=== PATIENT | female | born 1985 | race Caucasian/White ===

== ENCOUNTER 2016-09-02 14:28 | Inpatient (IN) ==
[2016-09-02 15:26] LABS: Bilirubin,Urine Small (Negative); Blood,Urine Negative (Negative); Clarity,Urine Cloudy (Clear); Color,Urine Dark Yellow (Yellow); Glucose,Urine (UA) Normal (Normal); Ketones,Urine Trace mg/dL (Negative); Leukocyte Esterase,Urine Negative (Negative); Nitrite,Urine Negative (Negative); Protein,Urine 30 mg/dL (Neg-Trace); Specific Gravity,Urine 1.029 (1.010-1.025); Urobilinogen,Urine Normal (Normal)
[2016-09-02 15:29] LABS: Basophils % 0.2 %; Eosinophils # 0.4 K/mcL (0.0-0.6); Hematocrit 44.5 % (35.3-44.9); Hemoglobin 14.8 g/dL (11.5-15.4); Immature Granulocytes % 0.2 % (0-4); Lymphocytes # 3.1 K/mcL (0.6-4.6); Mean Corpuscular HGB Conc 33.3 g/dL (31.6-35.5); Mean Corpuscular Hemoglobin 29.9 pg (28.0-33.3); Mean Corpuscular Volume 89.9 fL (83.0-100.0); Mean Platelet Volume 10.4 fL (9.4-12.4); Monocytes # 0.4 K/mcL (0.0-1.3); Monocytes % 4.6 %; Neutrophils # 5.1 K/mcL (1.6-8.9); Platelet Count 169 K/mcL (140-400); Red Blood Count 4.95 M/mcL (3.82-4.97); Red Cell Distribution Width 13.1 % (11.5-14.5)
[2016-09-02 15:30] LABS: Amphetamine Screen,Urine Negative ng/mL (Cutoff=1000); Barbiturate Screen,Urine Positive ng/mL (Cutoff=200); Benzodiazepines Screen,Urine Positive ng/mL (Cutoff=200); Cannabinoid Screen,Urine Negative ng/mL (Cutoff = 50); Cocaine Screen,Urine Negative ng/mL (Cutoff= 300); Opiate Screen,Urine Positive ng/mL (Cutoff=300); Phencyclidine Screen,Urine Negative ng/mL (Cutoff=25)
--- NOTE | 2016-09-02 15:33 | Emergency Department Note ---
Overdose - Lab Data Result diagrams: 09/02/16 15:20 09/02/16 15:20 Lab Results 09/02/16 09/02/16 09/02/16 Range/Units 15:14 15:14 15:14 WBC (4.3-11.1) K/mcL RBC (3.82-4.97) M/mcL Hgb (11.5-15.4) g/dL Hct (35.3-44.9) % MCV (83.0-100.0) fL MCH (28.0-33.3) pg MCHC (31.6-35.5) g/dL RDW (11.5-14.5) % Plt Count (140-400) K/mcL MPV (9.4-12.4) fL Immature Gran % (0-4) % Seg Neutrophils % % Lymphocytes % % Monocytes % % Eosinophils % % Basophils % % Neutrophils # (1.6-8.9) K/mcL Lymphocytes # (0.6-4.6) K/mcL Monocytes # (0.0-1.3) K/mcL Eosinophils # (0.0-0.6) K/mcL Basophils # (0.0-0.2) K/mcL Sodium (136-145) mEq/L Potassium (3.5-4.5) mEq/L Chloride (98-109) mEq/L Carbon Dioxide (19-29) mEq/L BUN (7-20) mg/dL Creatinine (0.57-1.11) mg/dL Est GFR ( Amer) (> 60) Est GFR (Non-Af Amer) (> 60) BUN/Creatinine Ratio (6-26) Glucose (70-99) mg/dL Calculated Osmolality (280-300) Lactic Acid (0.5-2.2) mmol/L Calcium (8.6-10.8) mg/dL Total Bilirubin (0.2-1.2) mg/dL Direct Bilirubin (0.0-0.5) mg/dL Indirect Bilirubin (0.0-1.2) mg/dL AST (5-34) Units/L ALT (0-55) Units/L Alkaline Phosphatase (38-126) Units/L Serum Total Protein (6.0-8.3) g/dL Albumin (3.5-5.0) g/dL Globulin (2.4-3.5) g/dL Albumin/Globulin Ratio (1.1-2.2) Urine Color Dark Yellow (Yellow) Urine Clarity Cloudy A (Clear) Urine pH 6.0 (5.0-8.0) pH Units Ur Specific [place] 1.029 H (1.010-1.025) Urine Protein 30 H (Neg-Trace) mg/dL Urine Glucose (UA) Normal (Normal) mg/dL Urine Ketones Trace H (Negative) mg/dL Urine Blood Negative (Negative) Urine Nitrite Negative (Negative) Urine Bilirubin Small H (Negative) Urine Urobilinogen Normal (Normal) mg/dL Ur Leukocyte Esterase Negative (Negative) Urine Microscopic RBC 0-3 (0-3) per hpf Urine Microscopic WBC 0-3 (0-3) per hpf Ur Squamous Epith Cells Few (None-Few) per lpf Urine Bacteria Few (None-Few) per hpf Urine Test Negative (Negative) Salicylates (15-30) mg/dL Urine Opiates Screen Positive H (Xjrwyr=517) ng/mL Acetaminophen (10-30) mcg/mL Ur Barbiturates Screen Positive H (Hniryy=037) ng/mL Ur Phencyclidine Scrn Negative (Cutoff=25) ng/mL Ur Amphetamines Screen Negative (Ivqdev=6756) ng/mL U Benzodiazepines Scrn Positive H (Aoqioe=944) ng/mL Urine Cocaine Screen Negative (Cutoff= 300) ng/mL U Marijuana (THC) Screen Negative (Cutoff = 50) ng/mL Ethyl Alcohol (0-10) mg/dL 09/02/16 09/02/16 09/02/16 Range/Units 15:20 15:20 15:20 WBC 9.0 (4.3-11.1) K/mcL RBC 4.95 (3.82-4.97) M/mcL Hgb 14.8 (11.5-15.4) g/dL Hct 44.5 (35.3-44.9) % MCV 89.9 (83.0-100.0) fL MCH 29.9 (28.0-33.3) pg MCHC 33.3 (31.6-35.5) g/dL RDW 13.1 (11.5-14.5) % Plt Count 169 (140-400) K/mcL MPV 10.4 (9.4-12.4) fL Immature Gran % 0.2 (0-4) % Seg Neutrophils % 57.0 % Lymphocytes % 34.0 % Monocytes % 4.6 % Eosinophils % 4.0 % Basophils % 0.2 % Neutrophils # 5.1 (1.6-8.9) K/mcL Lymphocytes # 3.1 (0.6-4.6) K/mcL Monocytes # 0.4 (0.0-1.3) K/mcL Eosinophils # 0.4 (0.0-0.6) K/mcL Basophils # 0.0 (0.0-0.2) K/mcL Sodium 142 (136-145) mEq/L Potassium 3.7 (3.5-4.5) mEq/L Chloride 108 (98-109) mEq/L Carbon Dioxide 29 (19-29) mEq/L BUN 10 (7-20) mg/dL Creatinine 0.94 (0.57-1.11) mg/dL Est GFR ( Amer) > 60 (> 60) Est GFR (Non-Af Amer) > 60 (> 60) BUN/Creatinine Ratio 11 (6-26) Glucose 140 H (70-99) mg/dL Calculated Osmolality 295 (280-300) Lactic Acid 1.0 (0.5-2.2) mmol/L Calcium 9.3 (8.6-10.8) mg/dL Total Bilirubin 0.4 (0.2-1.2) mg/dL Direct Bilirubin 0.2 (0.0-0.5) mg/dL Indirect Bilirubin 0.2 (0.0-1.2) mg/dL AST 14 (5-34) Units/L ALT 25 (0-55) Units/L Alkaline Phosphatase 126 (38-126) Units/L Serum Total Protein 6.6 (6.0-8.3) g/dL Albumin 3.4 L (3.5-5.0) g/dL Globulin 3.2 (2.4-3.5) g/dL Albumin/Globulin Ratio 1.1 (1.1-2.2) Urine Color (Yellow) Urine Clarity (Clear) Urine pH (5.0-8.0) pH Units Ur Specific [place] (1.010-1.025) Urine Protein (Neg-Trace) mg/dL Urine Glucose (UA) (Normal) mg/dL Urine Ketones (Negative) mg/dL Urine Blood (Negative) Urine Nitrite (Negative) Urine Bilirubin (Negative) Urine Urobilinogen (Normal) mg/dL Ur Leukocyte Esterase (Negative) Urine Microscopic RBC (0-3) per hpf Urine Microscopic WBC (0-3) per hpf Ur Squamous Epith Cells (None-Few) per lpf Urine Bacteria (None-Few) per hpf Urine Test (Negative) Salicylates < 5.0 L (15-30) mg/dL Urine Opiates Screen (Hrpppo=911) ng/mL Acetaminophen 6.0 L (10-30) mcg/mL Ur Barbiturates Screen (Ymybeh=458) ng/mL Ur Phencyclidine Scrn (Cutoff=25) ng/mL Ur Amphetamines Screen (Xonuhv=6491) ng/mL U Benzodiazepines Scrn (Ajvehn=270) ng/mL Urine Cocaine Screen (Cutoff= 300) ng/mL U Marijuana (THC) Screen (Cutoff = 50) ng/mL Ethyl Alcohol < 10 (0-10) mg/dL - EKG Data EKG results narrative: EKG shows a sinus rhythm with a rate of 78 bpm. There is no ST elevation or depression. Isolated T-wave inversion in lead 3 which is unchanged from previous. Normal axis. Normal progression. QT interval 409 ms. Overdose HPI - General Chief Complaint: ED Overdose Stated Complaint: SI OD attempt Time Seen by Provider: 09/02/16 14:47 Source: patient Nursing Notes Reviewed: Yes Vital Signs Reviewed: Yes - History of Present Illness HPI Narrative: 35-year-old female with a history of depression, anxiety and PTSD presents to the emergency department after a reported overdose. She informs me that today around noon she took 10 tablets of 5 mg Valium that were prescribed to her. She took those because "I just wanted to go to sleep." She denies any suicidal ideation or homicidal ideation. She reports an ingestion in the past that was intentional and required her to spend time in the hospital and see our psychiatrist. She states she deals with anxiety and depression and has been very stressed out lately. She smoked marijuana for the first time a few days ago to try to help her nerves. She denies any other drug use or alcohol use. She denies any abdominal pain but complains of some nausea and states she had a vomiting episode. She states she feels tired but denies any headache, numbness or weakness in her extremities. - Related Data Home Medications Medication Instructions Recorded Confirmed Atorvastatin 40 mg PO HS 09/05/15 10/14/15 Prazosin HCl [Minipress] 4 mg PO HS 09/06/15 10/14/15 Ropinirole [Requip] 0.25 mg PO HS 09/06/15 10/14/15 Aripiprazole [Abilify Maintena] 12/06/15 Benztropine Mesylate [Benztropine 12/06/15 Mesylate] Butalb/Acetaminophen/Caffeine 12/06/15 [Fioricet 50-300-40 mg Capsule] Docusate [Colace] 12/06/15 Ferrous Sulfate [Iron] 12/06/15 Lamictal 12/06/15 12/06/15 Previous Rx's Medication Instructions Recorded Diazepam [Valium] 5 mg PO BID PRN #60 tablet 10/04/15 Gabapentin [Neurontin] 600 mg PO BID #120 capsule 10/04/15 RisperiDONE [RisperDAL] 1 mg PO HS #30 tablet 10/04/15 Dicyclomine [Bentyl] 20 mg PO QID #20 capsule 12/14/15 Ondansetron [Zofran] 8 mg PO Q8HR #20 tablet 12/14/15 Ciprofloxacin HCl [Cipro] 500 mg PO BID #20 tablet 02/14/16 Hydrocodone/Acetaminophen [[place] 1 each PO Q6HR PRN #12 tablet 02/14/16 5-325 Tablet] Ondansetron ODT [Zofran ODT] 4 mg PO Q6HR #10 tab.rapdis 02/14/16 SUMAtriptan Succinate [Imitrex] 100 mg PO 1-2XD PRN #9 tablet 03/29/16 TraMADol [Ultram] 50 mg PO Q6HR #20 tablet 04/14/16 Amoxicillin 875 mg PO BID #42 tablet 04/21/16 Ondansetron ODT [Zofran ODT] 4 mg SL Q8HR PRN #20 tab.rapdis 07/28/16 Allergies Allergy/AdvReac Type Severity Reaction Status Date / Time chlorhexidine Allergy See Verified 09/02/16 14:36 Comments lurasidone [From Latuda] Allergy Swelling Verified 09/02/16 14:36 of Lip/Tongue/Throat orange (food color) AdvReac Hives Verified 09/02/16 14:36 All systems ED: reviewed and negative except as stated. Cardiovascular: Denies: chest pain Respiratory: Denies: cough, dyspnea Gastrointestinal: Reports: nausea, vomiting. 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 S1, S2. No murmurs, rubs or gallops. Respiratory: Breath sounds clear bilaterally. No wheezing, rales or rhonchi. No resp distress Abdomen: Soft, nontender. No guarding, rebound or rigidity. Normal bowel sounds throughout. No palpable organomegaly Eyes: Conjunctiva clear, no scleral icterus HENT: Normocephalic, no signs of head injury. No oral mucosal lesions. Moist mucous membranes Neuro: Alert and oriented 3, moving all extremities appropriately Musculoskeletal: No joint tenderness or swelling Skin: No signs of self-harm or IV drug abuse Psych: Appropriate - General General appearance: alert, in no apparent distress Course Course Narrative: Presented after an overdose on 50 mg of Valium. Obviously, this is concerning for suicide attempt and patient was evaluated by our psychiatry team who recommended admission. Her labs were unremarkable. Alcohol was not onboard. She is positive for opiates, barbiturates and opiates. She does take Fioricet according to her history which may explain the barbiturates. Her EKG showed no QT prolongation or any other abnormalities. She remained awake, alert, protecting her airway and stable in the emergency department and we feel patient is stable to be admitted to psychiatry seen. Vital Signs Temperature 98.4 F 09/02/16 14:33 Pulse Rate 80 09/02/16 14:33 Respiratory Rate 16 09/02/16 14:33 Blood Pressure 132/84 09/02/16 14:33 O2 Sat by Pulse Oximetry 96 09/02/16 14:33 Temperature 98.4 F 09/02/16 14:33 Pulse Rate 71 09/02/16 15:00 Respiratory Rate 16 09/02/16 15:00 Blood Pressure 140/74 09/02/16 15:00 O2 Sat by Pulse Oximetry 97 09/02/16 15:00 Oxygen Delivery Oxygen Delivery Room Air Disposition Clinical Impression: Overdose Qualifiers: Encounter type: initial encounter Injury intent: intentional self-harm Qualified Code(s): T50.902A - Poisoning by unspecified drugs, medicaments and biological substances, intentional self-harm, initial encounter Disposition: Admitted As Inpatient Attestation Statement - Attestation Attestation: I examined this patient and my medical decision-making was reviewed with the AERODYNAMICIST/PA/Advanced Practice Nurse/Resident Physician. I agree with the documented findings, disposition and treatment plan as described except to the extent set forth below. Patient emergency department with a chief complaint of overdose. Patient states she intentionally took 10 5 mg Valium tablets about 2 hours ago. On exam she is awake alert no distress. Obese. Lungs clear heart regular. Plan. Patient medically cleared. She has been observed for 2 hours. She is awake alert and appropriate. She is evaluated by one a staff who feel she is appropriate for admission. [place] slip reviewed. Patient admitted to psych.
[2016-09-02 15:38] LABS: Bacteria,Urine Few per hpf (None-Few); RBC,Urine 0-3 per hpf (0-3); Squamous Epithelial Cell,Urine Few per lpf (None-Few); WBC,Urine 0-3 per hpf (0-3)
[2016-09-02 15:42] LABS: Alanine Aminotransferase 25 Units/L (0-55); Albumin 3.4 g/dL (3.5-5.0); Albumin/Globulin Ratio 1.1 (1.1-2.2); Alkaline Phosphatase 126 Units/L (38-126); Aspartate Amino Transferase 14 Units/L (5-34); BUN/Creatinine Ratio 11 (6-26); Bilirubin,Direct 0.2 mg/dL (0.0-0.5); Bilirubin,Indirect 0.2 mg/dL (0.0-1.2); Bilirubin,Total 0.4 mg/dL (0.2-1.2); Blood Urea Nitrogen 10 mg/dL (7-20); Calcium 9.3 mg/dL (8.6-10.8); Carbon Dioxide 29 mEq/L (19-29); Chloride 108 mEq/L (98-109); Globulin 3.2 g/dL (2.4-3.5); Glucose 140 mg/dL (70-99); Osmolality,Calculated 295 (280-300); Potassium 3.7 mEq/L (3.5-4.5); Sodium 142 mEq/L (136-145); Total Protein 6.6 g/dL (6.0-8.3); eGFR For African Americans > 60 (> 60); eGFR For Non-African Americans > 60 (> 60)
[2016-09-02 15:43] LABS: Ethanol < 10 mg/dL (0-10); Salicylate < 5.0 mg/dL (15-30)
[2016-09-02] MEDS ORDERED: Ondansetron ODT 4 MG TAB.RAPDIS SL ONE (15:50)
[2016-09-02] MEDS ORDERED: Acetaminophen/Butalbital/CaffeineTABLET PO PRN (17:41)
[2016-09-02] MEDS ORDERED: *HR* LORazepam 1 MG TABLET PO PRN (17:48)
[2016-09-02] MEDS ORDERED: Haloperidol Lactate 5 MG/ML VIAL IM PRN (17:48)
[2016-09-02] MEDS ORDERED: Ibuprofen 400 MG TABLET PO PRN (17:48)
[2016-09-02] MEDS ORDERED: *HR* LORazepam 2 MG/ML VIAL IM PRN (17:48)
[2016-09-02] MEDS ORDERED: MOM Conc 10 ML UD.LIQ PO PRN (18:29)
[2016-09-02] MEDS ORDERED: Mag Hydrox/Al Hydrox/Simeth 30 ML UDC PO PRN (18:29)
[2016-09-02] MEDS ORDERED: lamoTRIgine 100 MG TABLET PO SCH (21:00)
[2016-09-02] MEDS: Gabapentin 300 MG CAPSULE PO SCH (21:32)
[2016-09-02] MEDS: Nicotine 14 MG PATCH.TD24 TD SCH (21:32)
[2016-09-03] MEDS: Nicotine 14 MG PATCH.TD24 TD SCH (09:23)
[2016-09-03] MEDS: Gabapentin 300 MG CAPSULE PO SCH ×2 (09:24→20:53)
[2016-09-03] MEDS: Multivit/Ca/Min/Fe/FA 1 TAB TABLET PO SCH (09:24)
[2016-09-03] MEDS: lamoTRIgine 100 MG TABLET PO SCH (11:07)
[2016-09-03] MEDS: ARIPiprazole 5 MG TABLET PO SCH (11:07)
--- NOTE | 2016-09-03 11:38 | Psychiatry History & Physical ---
Date of Encounter: 09/03/16 Time of Encounter: 10:00 History of Present Illness Patient Stated Chief Complaint: "I just can't live this way." Medicare Admission Attestation: For traditional Medicare patients the provided hospital inpatient services are reasonable and necessary and in the case of services not specified as inpatient -only under 42 CFR 419.22 (n), that they are appropriately provided as inpatient services in accordance 42 CFR 412.3. For Critical Access Hospital the patient may reasonably be expected to be discharged or transferred to a hospital within 96 hours after admission to the Critical Access Hospital. Admitted From: Emergency Dept Plans for Post Hospital Care: Home History of Present Illness: Ms. Kendall is a 31 year old female with a history of multiple psychiatric issues who presents to the hospital with increasing depression and after a recent drug overdose. Patient admits that she was going to try to kill herself with overdosing on Valium tablets. Patient states that she has a plan for about a week before she acted on it. She reports increasing depression and feelings of hopelessness over the past few weeks. She admits that she has been off several of her medications including her Abilify sustained release for several months because she has no provider to prescribe it. She states that she got into argument with her fiance recently and that has increased her stress level and made her feel more depressed. She reports racing thoughts and anxiety with occasionally difficulty sleeping. She sometimes has trouble "shutting down my brain." She denies auditory or visual hallucinations. She denies obsessions, delusions, paranoia. The patient continues to feel hopeless about her life. She has passive wish to follow sleep and not wake up. She currently lives with her 2 children. Patient states that her mom is emotionally supportive. Patient denies illicit drug use other than marijuana. She currently does not work. Patient has a appointment for a new psychiatric provider but will not see this person until October. She does feel that her psych meds were helping at one point, but they do not help her any longer. She has been on 150 mg Lamictal for about 6 months. Past Med Surg Social Fam HX - Past Medical History Medical history: migraine - Past Psychiatric History Psychiatric history: Reports: prior suicide attempt Past psychiatric history details: Patient has a history of a previous suicide attempt about a year ago. She reports a myriad of psychiatric disorders. Family psychiatric history: Yes Family Psychiatric History Details: Patient reports that her son has bipolar disorder. Family History of Suicide: None - Past Surgical History Surgical History: appendectomy, hysterectomy - Social History Smoking Status: Current every day smoker Smokeless Tobacco Status: No Alcohol use: none Drug use: none Occupational status: unemployed Current living situation: With Family - Family History Father Living Status: Hx Family Cardiac Disorders: Yes Hx Family Endocrine Disorder: Yes Medications & Allergies Atorvastatin 40 mg PO HS 09/05/15 [History] Prazosin HCl [Minipress] 4 mg PO HS 09/06/15 [History] Ropinirole [Requip] 0.25 mg PO HS 09/06/15 [History] Diazepam [Valium] 5 mg PO BID PRN #60 tablet 10/04/15 [Rx] Gabapentin [Neurontin] 600 mg PO BID #120 capsule 10/04/15 [Rx] RisperiDONE [RisperDAL] 1 mg PO HS #30 tablet 10/04/15 [Rx] Aripiprazole [Abilify Maintena] 12/06/15 [History] Benztropine Mesylate [Benztropine Mesylate] 12/06/15 [History] Butalb/Acetaminophen/Caffeine [Fioricet 50-300-40 mg Capsule] 12/06/15 [History ] Docusate [Colace] 12/06/15 [History] Ferrous Sulfate [Iron] 12/06/15 [History] Lamictal 12/06/15 [History] Dicyclomine [Bentyl] 20 mg PO QID #20 capsule 12/14/15 [Rx] Ondansetron [Zofran] 8 mg PO Q8HR #20 tablet 12/14/15 [Rx] Ciprofloxacin HCl [Cipro] 500 mg PO BID #20 tablet 02/14/16 [Rx] Hydrocodone/Acetaminophen [[place] 5-325 Tablet] 1 each PO Q6HR PRN #12 tablet [Rx] Ondansetron ODT [Zofran ODT] 4 mg PO Q6HR #10 tab.rapdis 02/14/16 [Rx] SUMAtriptan Succinate [Imitrex] 100 mg PO 1-2XD PRN #9 tablet 03/29/16 [Rx] TraMADol [Ultram] 50 mg PO Q6HR #20 tablet 04/14/16 [Rx] Amoxicillin 875 mg PO BID #42 tablet 04/21/16 [Rx] Ondansetron ODT [Zofran ODT] 4 mg SL Q8HR PRN #20 tab.rapdis 07/28/16 [Rx] Allergies chlorhexidine Allergy (Verified 09/02/16 14:36) See Comments swelling and blisters lurasidone [From Latuda] Allergy (Verified 09/02/16 14:36) Swelling of Lip/Tongue/Throat orange (food color) Adverse Reaction (Verified 09/02/16 14:36) Hives Review of Systems Constitutional: Denies: fever, chills, weakness, weight change Eyes: Denies: eye pain, vision change Ears, Nose, Throat: Denies: ear pain, throat pain, dental pain, hearing loss, congestion Cardiovascular: Denies: chest pain, palpitations, dyspnea on exertion Respiratory: Denies: cough, dyspnea, wheezes Gastrointestinal: Denies: abdominal pain, nausea, vomiting, diarrhea, constipation Genitourinary male: Denies: urgency, dysuria, frequency, genital lesions Genitourinary female: Denies: urgency, dysuria, frequency, abnormal menses, dyspareunia Musculoskeletal: Denies: joint swelling, joint pain Integumentary: Denies: rash, lesions, pruritus Neurological: Denies: headache, weakness, numbness, memory loss Psychiatric: Reports: depression, anxiety, abnormal sleep pattern, suicidal ideation, hopelessness, irritability, mood swings, panic attacks. Denies: auditory hallucinations, visual hallucinations Endocrine: Denies: fatigue, heat or cold intolerance Hematologic/Lymphatic: Denies: easy bruising, lymphadenopathy Allergic/Immunologic: Denies: urticaria, itchy eyes Mental Status Exam Patient orientation: Yes Person, Yes Time, Yes Place Level of alertness: Alert Patient appearance: Appropriate, Disheveled Behavior: cooperative, nervous Psychomotor activity: Normal Eye contact: Minimal Contact Mood description: Depressed, Anxious Affect description: tearful, dysphoric Speech pattern: Normal rate, Normal rhythm, Normal tone Speech volume: Normal Thought process: Intact Thought content: Yes Intact, Yes Suicidal ideation, No Homicidal ideation Perceptual disturbances: No Auditory hallucinations, No Visual hallucinations Attention span: Capable of Focused Attention Memory description: Grossly Intact Patient reliability: Reliable Historian Intelligence estimate: Average Judgment: Limited Insight: Minimal Results - Vital Signs Vital signs: Temp Pulse Resp BP Pulse Ox 98.9 F 91 18 98/69 97 09/03/16 09:00 09/03/16 09:00 09/03/16 09:00 09/03/16 09:00 09/02/16 15:00 - Labs Labs: Laboratory Last Values WBC 9.0 K/mcL (4.3-11.1) 09/02/16 15:20 RBC 4.95 M/mcL (3.82-4.97) 09/02/16 15:20 Hgb 14.8 g/dL (11.5-15.4) 09/02/16 15:20 Hct 44.5 % (35.3-44.9) 09/02/16 15:20 MCV 89.9 fL (83.0-100.0) 09/02/16 15:20 MCH 29.9 pg (28.0-33.3) 09/02/16 15:20 MCHC 33.3 g/dL (31.6-35.5) 09/02/16 15:20 RDW 13.1 % (11.5-14.5) 09/02/16 15:20 Plt Count 169 K/mcL (140-400) 09/02/16 15:20 MPV 10.4 fL (9.4-12.4) 09/02/16 15:20 Immature Gran % 0.2 % (0-4) 09/02/16 15:20 Seg Neutrophils % 57.0 % 09/02/16 15:20 Lymphocytes % 34.0 % 09/02/16 15:20 Monocytes % 4.6 % 09/02/16 15:20 Eosinophils % 4.0 % 09/02/16 15:20 Basophils % 0.2 % 09/02/16 15:20 Neutrophils # 5.1 K/mcL (1.6-8.9) 09/02/16 15:20 Lymphocytes # 3.1 K/mcL (0.6-4.6) 09/02/16 15:20 Monocytes # 0.4 K/mcL (0.0-1.3) 09/02/16 15:20 Eosinophils # 0.4 K/mcL (0.0-0.6) 09/02/16 15:20 Basophils # 0.0 K/mcL (0.0-0.2) 09/02/16 15:20 Sodium 142 mEq/L (136-145) 09/02/16 15:20 Potassium 3.7 mEq/L (3.5-4.5) 09/02/16 15:20 Chloride 108 mEq/L (98-109) 09/02/16 15:20 Carbon Dioxide 29 mEq/L (19-29) 09/02/16 15:20 BUN 10 mg/dL (7-20) 09/02/16 15:20 Creatinine 0.94 mg/dL (0.57-1.11) 09/02/16 15:20 Est GFR ( Amer) > 60 (> 60) 09/02/16 15:20 Est GFR (Non-Af Amer) > 60 (> 60) 09/02/16 15:20 BUN/Creatinine Ratio 11 (6-26) 09/02/16 15:20 Glucose 140 mg/dL (70-99) H 09/02/16 15:20 Calculated Osmolality 295 (280-300) 09/02/16 15:20 Lactic Acid 1.0 mmol/L (0.5-2.2) 09/02/16 15:20 Calcium 9.3 mg/dL (8.6-10.8) 09/02/16 15:20 Total Bilirubin 0.4 mg/dL (0.2-1.2) 09/02/16 15:20 Direct Bilirubin 0.2 mg/dL (0.0-0.5) 09/02/16 15:20 Indirect Bilirubin 0.2 mg/dL (0.0-1.2) 09/02/16 15:20 AST 14 Units/L (5-34) 09/02/16 15:20 ALT 25 Units/L (0-55) 09/02/16 15:20 Alkaline Phosphatase 126 Units/L (38-126) 09/02/16 15:20 Serum Total Protein 6.6 g/dL (6.0-8.3) 09/02/16 15:20 Albumin 3.4 g/dL (3.5-5.0) L 09/02/16 15:20 Globulin 3.2 g/dL (2.4-3.5) 09/02/16 15:20 Albumin/Globulin Ratio 1.1 (1.1-2.2) 09/02/16 15:20 Urine Color Dark Yellow (Yellow) 09/02/16 15:14 Urine Clarity Cloudy (Clear) A 09/02/16 15:14 Urine pH 6.0 pH Units (5.0-8.0) 09/02/16 15:14 Ur Specific [place] 1.029 (1.010-1.025) H 09/02/16 15:14 Urine Protein 30 mg/dL (Neg-Trace) H 09/02/16 15:14 Urine Glucose (UA) Normal mg/dL (Normal) 09/02/16 15:14 Urine Ketones Trace mg/dL (Negative) H 09/02/16 15:14 Urine Blood Negative (Negative) 09/02/16 15:14 Urine Nitrite Negative (Negative) 09/02/16 15:14 Urine Bilirubin Small (Negative) H 09/02/16 15:14 Urine Urobilinogen Normal mg/dL (Normal) 09/02/16 15:14 Ur Leukocyte Esterase Negative (Negative) 09/02/16 15:14 Urine Microscopic RBC 0-3 per hpf (0-3) 09/02/16 15:14 Urine Microscopic WBC 0-3 per hpf (0-3) 09/02/16 15:14 Ur Squamous Epith Cells Few per lpf (None-Few) 09/02/16 15:14 Urine Bacteria Few per hpf (None-Few) 09/02/16 15:14 Urine Test Negative (Negative) 09/02/16 15:14 Salicylates < 5.0 mg/dL (15-30) L 09/02/16 15:20 Urine Opiates Screen Positive ng/mL (Ngkwzh=302) H 09/02/16 15:14 Acetaminophen 6.0 mcg/mL (10-30) L 09/02/16 15:20 Ur Barbiturates Screen Positive ng/mL (Jvoive=103) H 09/02/16 15:14 Ur Phencyclidine Scrn Negative ng/mL (Cutoff=25) 09/02/16 15:14 Ur Amphetamines Screen Negative ng/mL (Rhfaoh=2482) 09/02/16 15:14 U Benzodiazepines Scrn Positive ng/mL (Rudqea=483) H 09/02/16 15:14 Urine Cocaine Screen Negative ng/mL (Cutoff= 300) 09/02/16 15:14 U Marijuana (THC) Screen Negative ng/mL (Cutoff = 50) 09/02/16 15:14 Ethyl Alcohol < 10 mg/dL (0-10) 09/02/16 15:20 Assessment and Plan (1) Major depressive disorder, recurrent severe without psychotic features Current visit: Yes Status: Acute Plan: Admit inpatient for safety and stabilization, Close observation, Suicide Precautions per unit protocol, Encourage participation in unit milieu, Group Therapy, Monitor sleep, Monitor appetite Additional Plan: Patient should be admitted to one for psychiatric stabilization. Incorporate into therapeutic milieu and offer group and individual as well as recreational therapy. Suicide precautions. We will continue home meds of prazosin and doxepin. Increase Lamictal to 200 mg by mouth daily. Restart Abilify at 5 mg by mouth daily. Monitor for side effects and considering tapering her down off some of her other medicine depending on her response. Risks, benefits, side effects, alternatives discussed w/pt: Yes Patient agreeable to treatment: Yes Plans for Post Hospital Care: Home (2) Anxiety Current visit: Yes Status: Acute Plan: Admit inpatient for safety and stabilization, Close observation, Suicide Precautions per unit protocol, Encourage participation in unit milieu, Group Therapy, Monitor sleep, Monitor appetite Additional Plan: Encourage positive coping skills to deal with stress. Continue Valium for now. Risks, benefits, side effects, alternatives discussed w/pt: Yes Patient agreeable to treatment: Yes Plans for Post Hospital Care: Home (3) Overdose Current visit: Yes Status: Acute Plan: Admit inpatient for safety and stabilization, Close observation, Suicide Precautions per unit protocol Additional Plan: Patient overdosed on several Valium tablets. She still feels some fatigue and we will continue to monitor her vitals. Risks, benefits, side effects, alternatives discussed w/pt: Yes Patient agreeable to treatment: Yes Qualifiers: Encounter type: subsequent encounter Injury intent: intentional self-harm Qualified Code(s): T50.902D - Poisoning by unspecified drugs, medicaments and biological substances, intentional self-harm, subsequent encounter
--- NOTE | 2016-09-03 14:18 | Electrocardiograph Report ---
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
[2016-09-04] MEDS: diazePAM 5 MG TABLET PO PRN ×3 (02:13→20:59)
[2016-09-04] MEDS ORDERED: Ondansetron ODT 4 MG TAB.RAPDIS SL PRN (03:55)
[2016-09-04] MEDS: ARIPiprazole 5 MG TABLET PO SCH (08:39)
[2016-09-04] MEDS: Multivit/Ca/Min/Fe/FA 1 TAB TABLET PO SCH (08:39)
[2016-09-04] MEDS: lamoTRIgine 100 MG TABLET PO SCH (08:39)
[2016-09-04] MEDS: Nicotine 14 MG PATCH.TD24 TD SCH (08:39)
[2016-09-04] MEDS: Gabapentin 300 MG CAPSULE PO SCH ×2 (08:39→20:59)
[2016-09-04] MEDS: Ondansetron ODT 4 MG TAB.RAPDIS SL PRN ×2 (11:28→20:58)
--- NOTE | 2016-09-04 13:25 | Psychiatry Progress Note ---
Date of Encounter: 09/04/16 Time of Encounter: 11:00 Subjective Interval history: Patient seen today for follow-up. She continues to report some anxiety symptoms and states that she had trouble sleeping last night. Patient reports this may have been related to nausea. She did eat breakfast despite reporting nausea to staff. Encouraged patient to get out of bed and participate in group activities. Patient states she still feels depressed but her mood is slightly better today. She has continued intermittent thoughts of wanting to "not wake up." Review of Systems Psychiatric: Reports: depression, anxiety, abnormal sleep pattern, suicidal ideation, hopelessness, panic attacks. Denies: auditory hallucinations, visual hallucinations Objective: Exam Patient orientation: Yes Person, Yes Time, Yes Place Level of alertness: Alert Patient appearance: Appropriate, Disheveled Behavior: calm, cooperative Psychomotor activity: Normal Eye contact: Minimal Contact Mood description: Depressed Affect description: flat, dysphoric Speech pattern: Normal rate, Normal rhythm, Normal tone Speech volume: Normal Thought process: Intact Thought content: Yes Intact, Yes Suicidal ideation, No Homicidal ideation Perceptual disturbances: No Auditory hallucinations, No Visual hallucinations Judgment: Limited Insight: Minimal Results - Vital Signs Vital Signs: Temp Pulse Resp BP Pulse Ox 97.6 F 101 18 100/76 97 09/04/16 08:26 09/04/16 08:26 09/04/16 08:26 09/04/16 08:26 09/02/16 15:00 Assessment and Plan (1) Major depressive disorder, recurrent severe without psychotic features Current visit: Yes Status: Acute Plan: Continue hospitalization, Close observation, Suicide Precautions per unit protocol, Encourage participation in unit milieu, Group Therapy, Monitor sleep, Monitor appetite Additional Plan: Increase doxepin to 75 mg by mouth daily at bedtime. Continue Lamictal to 200 mg by mouth daily. Continue Abilify at 5 mg by mouth daily. Nausea continues consider discontinuing Abilify or other medication that may be causing nausea. Risks, benefits, side effects, alternatives discussed w/pt: Yes Patient agreeable to treatment: Yes (2) Anxiety Current visit: Yes Status: Acute Plan: Continue hospitalization, Close observation, Suicide Precautions per unit protocol, Encourage participation in unit milieu, Group Therapy, Monitor sleep, Monitor appetite Additional Plan: Encourage positive coping skills. Risks, benefits, side effects, alternatives discussed w/pt: Yes Patient agreeable to treatment: Yes Consult Discharge Plan - Plan Referrals: Grace Cantrell [facility] [place] [place] [place]Outside] (The above appointment is with Bailee Hewitt.) [facility] [place] [Outside] - 10/25/16 10:00 am (The above appointment is with Danielle Diaz, psychiatric prescriber.)
[2016-09-05] MEDS: Gabapentin 300 MG CAPSULE PO SCH (09:06)
[2016-09-05] MEDS: ARIPiprazole 5 MG TABLET PO SCH (09:07)
[2016-09-05] MEDS: Nicotine 14 MG PATCH.TD24 TD SCH (09:07)
[2016-09-05] MEDS: Multivit/Ca/Min/Fe/FA 1 TAB TABLET PO SCH (09:07)
[2016-09-05] MEDS: lamoTRIgine 100 MG TABLET PO SCH (09:07)
[2016-09-05 09:42] VITALS: BP 92/65
--- NOTE | 2016-09-05 10:35 | Discharge Summary ---
Date of Encounter: 09/05/16 Time of Encounter: 10:20 Diagnosis - Discharge Diagnosis (1) Major depressive disorder, recurrent severe without psychotic features Priority: Primary Status: Acute (2) Anxiety Priority: Secondary Status: Acute Medications - Discharge Medications Prescriptions: Aripiprazole [Abilify] 5 mg PO QAM #30 tablet Diazepam [Valium] 5 mg PO BID PRN #30 tablet PRN Reason: Spasms Doxepin [Sinequan] 75 mg PO HS #90 capsule Lamotrigine [Lamictal] 200 mg PO QAM #30 tablet Prazosin HCl [Minipress] 4 mg PO HS #30 capsule Ropinirole [Requip] 3 mg PO HS #30 tablet Diazepam [Valium] 5 mg PO BID PRN #60 tablet 10/04/15 [Rx] Benztropine Mesylate 12/06/15 [History] Butalb/Acetaminophen/Caffeine [Fioricet 50-300-40 mg Capsule] 12/06/15 [History ] Docusate [Colace] 12/06/15 [History] Ferrous Sulfate [Iron] 12/06/15 [History] SUMAtriptan Succinate [Imitrex] 100 mg PO 1-2XD PRN #9 tablet 03/29/16 [Rx] Aripiprazole [Abilify] 5 mg PO QAM #30 tablet 09/05/16 [Rx] Atorvastatin [Lipitor] 40 mg PO HS tablet 09/05/16 [Rx] Diazepam [Valium] 5 mg PO BID PRN #30 tablet 09/05/16 [Rx] Doxepin [Sinequan] 75 mg PO HS #90 capsule 09/05/16 [Rx] Gabapentin [Neurontin] 600 mg PO BID capsule 09/05/16 [Rx] Lamotrigine [Lamictal] 200 mg PO QAM #30 tablet 09/05/16 [Rx] Prazosin HCl [Minipress] 4 mg PO HS #30 capsule 09/05/16 [Rx] Ropinirole [Requip] 3 mg PO HS #30 tablet 09/05/16 [Rx] Allergies chlorhexidine Allergy (Verified 09/02/16 14:36) See Comments swelling and blisters lurasidone [From Latuda] Allergy (Verified 09/02/16 14:36) Swelling of Lip/Tongue/Throat orange (food color) Adverse Reaction (Verified 09/02/16 14:36) Hives Provider Date of admission: 09/02/16 16:58 Primary care physician: PCP NO Discharging clinician: Anushka Villanueva Assessment and Plan - Patient/Caregiver Discharge Instructions Activity: resume usual activities as tolerated Diet: regular diet - Follow up Plan Follow up with: Grace Fernandez Óscar [facility] [Outside] - 09/18/16 10:00 am (The above appointment is with Bailee Hewitt. You will also see Dr. Pulliam, psychiatrist, on 09/18/2016 at 11:00am.) [facility] [employer] [facility] [place] [Outside] - 10/25/16 10:00 am (The above appointment is with Danielle Diaz, psychiatric prescriber.) Overall status at discharge: Stable Disposition: Home, Self-Care Hospital Course Hospital course: Ms. Kendall is a 31 year old female with a history of depression and anxiety who presented to the hospital after overdose on her Valium. Patient reported that it was an intentional overdose. She was admitted to [facility] for psychiatric stabilization. Patient was incorporated into therapeutic milieu and offer group and individual as well as recreational therapy. She was also offered psychoeducational materials and supportive therapy. She was placed on suicide precautions and close observation. Patient was started on her home medications. Patient had been off Abilify and maintain it for several months. She was restarted on Abilify 5 mg by mouth daily. Her Lamictal was increased to 200 mg by mouth daily. She was continued on her other psychiatric medications. Patient tolerated these medications well and reported improvement in her mood. Patient reported a decrease in her anxiety and states that she also slept much better. Her doxepin was increased to 75 mg by mouth daily. At the time of discharge patient stated that she did not want to hurt herself. She was willing to return to her home and continue her treatment as an outpatient. She will follow up with her previous psychiatric provider at a new location in October. Patient reports that she thinks she can return to the hospital if her symptoms return. She is discharged in stable condition with outpatient follow-up in place. - Time Spent with Patient Total time spent providing and/or coordinating discharge services: Less than 30 minutes Quality - Multiple Antipsychotics Patient discharged on 2 or more antipsychotic medications: No Procedures - Procedures Procedures: Medication Management, Crisis Stabilization, Supportive Therapy, Group Therapy, Psychoeducational Therapy Mental Status Exam - Mental Status Exam Patient orientation: Yes Person, Yes Time, Yes Place Level of alertness: Alert Patient appearance: Appropriate Behavior: calm, cooperative Psychomotor activity: Normal Eye contact: Maintains Eye Contact Mood description: Euthymic/stable Affect description: congruent with mood, full range Speech pattern: Normal rate, Normal rhythm, Normal tone Speech Volume: Normal Thought process: Intact Thought Content: No Intact, No Suicidal ideation, No Homicidal ideation Perceptual Disturbances: No Reacting to internal stimuli, No Auditory hallucinations, No Visual hallucinations Judgment: Fair Insight: Partial
[2016-09-05] MEDS: diazePAM 5 MG TABLET PO PRN (10:57)
== END 2016-09-05 11:45 | disposition home or self-care (01) | DRG 812 ==
LOC: EMEROO 14:28 → 1ANU 16:58
PROVIDERS: ADMIT Student in an Organized Health Care Education/Training Program; ATTEND Student in an Organized Health Care Education/Training Program

== ENCOUNTER 2018-05-04 15:26 | Observation (INO) ==
--- NOTE | 2018-05-04 16:04 | Emergency Department Note ---
Disposition Clinical Impression: Elevated liver enzymes Nausea & vomiting Qualifiers: Vomiting type: unspecified Vomiting Intractability: intractable Qualified Code( s): R11.2 - Nausea with vomiting, unspecified Abdominal pain Qualifiers: Abdominal location: right upper quadrant Qualified Code(s): R10.11 - Right upper quadrant pain Disposition: Admitted As Inpatient Condition: Good Time of Disposition: 20:37 General Adult HPI - General Chief complaint: ED Abdominal Pain Stated complaint: N/V Time Seen by Provider: 05/04/18 15:50 Source: patient Mode of arrival: ambulatory Limitations: no limitations Nursing Notes Reviewed: Yes Vital Signs Reviewed: Yes - History of Present Illness HPI Narrative: Pt with scheduled cholecystectomy on 05/[address] huang coming in to the ED with complaints of not being able to keep anything down and abd pain. Has tried rectal phenergan and norco. Pt vomiting has stopped however she states that she is still nauseated. She attempted to drink water at 11 and vomited it back up. Vomit is nonbloody nonbillious. Has diarrhea since last week, watery stools 4-5 times a day. Febrile last night of 103.0. Did come down with the norco. Pt states the pain is more of a discomfort in the right upper quadrant. Was seen here in the ED for similar symptoms on 05/28 and . Pain Scale: 3 - Related Data Home Medications Medication Instructions Recorded Confirmed Benztropine Mesylate 12/06/15 Docusate [Colace] 12/06/15 Ferrous Sulfate [Iron] 12/06/15 Previous Rx's Medication Instructions Recorded diazePAM [Valium] 5 mg PO BID PRN #60 tablet 10/04/15 SUMAtriptan Succinate [Imitrex] 100 mg PO 1-2XD PRN #9 tablet 03/29/16 ARIPiprazole [Abilify] 5 mg PO QAM #30 tablet 09/05/16 Atorvastatin [Lipitor] 40 mg PO HS tablet 09/05/16 Doxepin [Sinequan] 75 mg PO HS #90 capsule 09/05/16 Gabapentin [Neurontin] 600 mg PO BID capsule 09/05/16 Prazosin HCl [Minipress] 4 mg PO HS #30 capsule 09/05/16 Ropinirole [Requip] 3 mg PO HS #30 tablet 09/05/16 lamoTRIgine [Lamictal] 200 mg PO QAM #30 tablet 09/05/16 Aspirin Enteric Coated [Aspirin EC] 162 mg PO BID #20 tablet. 05/21/17 Diclofenac Sodium [Voltaren] 4 gm TP BID #1 gel..gram. 12/03/17 predniSONE [PredniSONE] 20 mg PO BID #10 tablet 12/03/17 Sulfamethoxazole/Trimeth DS 1 each PO BID #14 tablet 03/09/18 [Bactrim DS] predniSONE [PredniSONE] 20 mg PO DAILY 12 Days #24 tablet 03/19/18 Dicyclomine [Bentyl] 10 mg PO QID #40 capsule 04/27/18 HYDROcodone/Acet 5/325 mg [[place] 1 tab PO Q6H PRN 4 Days #14 tab 04/27/18 5-325 mg] Ondansetron ODT [Zofran ODT] 4 mg SL Q6HR PRN #8 tab.rapdis 04/27/18 Promethazine [Phenergan] 12.5 mg PO Q6HR #12 tablet 04/28/18 Promethazine [Phenergan] 12.5 mg RC Q6HR #4 supp.rect 04/28/18 Allergies Allergy/AdvReac Type Severity Reaction Status Date / Time chlorhexidine Allergy See Verified 03/19/18 13:06 Comments lurasidone [From Latuda] Allergy See Verified 03/19/18 13:06 Comments orange (food color) AdvReac Hives Verified 03/19/18 13:06 All systems ED: reviewed and negative except as stated. Review of Systems: As Per HPI Constitutional: Denies: fever Cardiovascular: Denies: chest pain, syncope Respiratory: Denies: cough, dyspnea Gastrointestinal: Reports: abdominal pain (Right upper quadrant), nausea. Denies: vomiting, diarrhea Genitourinary: Denies: urgency, dysuria, frequency, hematuria Musculoskeletal: Denies: back pain Integumentary: Denies: rash Past Medical History - Past Medical History Attestation: Yes The following information was validated with the patient. Source: patient Medical history: Reports: no medical history, other Surgical history: Reports: appendectomy, hysterectomy Psychiatric history: Reports: anxiety, bipolar, depression, prior suicide attempt, schizophrenia, previous psychiatric hospitalization SCARRER history: Reports: polycystic ovary syndrome, bilateral tubal ligation - Social History Smoking Status: Never smoker Smokeless Tobacco Status: No Alcohol use: Reports: none Drug use: Reports: none Physical Exam - General Limitations: no limitations General appearance: alert, in no apparent distress - Head Head exam: atraumatic, normocephalic, normal inspection - Eye Eye exam: Present: normal appearance - ENT ENT exam: normal exam, normal oropharynx, mucous membranes dry - Neck Neck exam: Present: normal inspection, full ROM, trachea midline - Chest Chest inspection: Present: normal inspection, symmetric chest wall rise - Respiratory Respiratory exam: Present: normal lung sounds bilaterally. Absent: respiratory distress, accessory muscle use - Cardiovascular Cardiovascular exam: Present: regular rate, normal rhythm, normal heart sounds - Abdominal Exam Abdominal exam: Present: soft, tenderness (Right upper quadrant), Olivares's sign. Absent: distention, guarding, rebound, rigidity, organomegaly, Rovsing's sign, tenderness at McBurney's Point - Extremities Exam Extremities exam: Present: normal inspection, full ROM, normal capillary refill. Absent: tenderness, pedal edema - Back Exam Back exam: Present: normal inspection, full ROM. Absent: tenderness - Neurological Exam Neurological exam: Present: alert, oriented X3 - Psychiatric Psychiatric exam: Present: normal affect, normal mood - Skin Skin exam: Present: warm, dry, intact, normal color. Absent: rash Course Course Narrative: Patient was given Phenergan. She did vomit after this administration. We will add a CBC on in contact surgery. This is the patient's third visit emergency department for these symptoms. Her liver enzymes are now elevating. She did have a right upper quadrant ultrasound that showed gallbladder wall thickening as well as biliary sludge. Her lipase is negative. We will admit patient to the hospital for intractable pain and nausea with the surgery consult. - Consultations Consultation #1: I spoke with Dr. Russ. She accepted her to her service. Time: 20:35 Vital Signs Temperature 98 F 05/04/18 15:36 Pulse Rate 89 05/04/18 15:36 Respiratory Rate 18 05/04/18 15:36 Blood Pressure 131/84 05/04/18 15:36 O2 Sat by Pulse Oximetry 99 05/04/18 15:36 Temperature 98.7 F 05/04/18 21:33 Pulse Rate 63 05/04/18 21:33 Respiratory Rate 14 05/04/18 21:33 Blood Pressure 112/73 05/04/18 21:33 O2 Sat by Pulse Oximetry 96 05/04/18 21:33 Oxygen Delivery Oxygen Delivery Room Air Medical Decision Making - Medical Records Medical records reviewed: Yes I reviewed the patient's medical records. - Lab Data Lab results reviewed: Yes I reviewed the patient's lab results. Result diagrams: 05/04/18 16:42 05/04/18 16:06 Lab Results 05/04/18 05/04/18 Range/Units 16:06 16:42 WBC 7.1 (4.3-11.1) K/mcL RBC 4.87 (3.82-4.97) M/mcL Hgb 13.7 D (11.5-15.4) g/dL Hct 40.9 (35.3-44.9) % MCV 84.0 (83.0-100.0) fL MCH 28.1 (28.0-33.3) pg MCHC 33.5 (31.6-35.5) g/dL RDW 12.4 (11.5-14.5) % Plt Count 172 (140-400) K/mcL MPV 10.8 (9.4-12.4) fL Immature Gran % 0.1 (0-4) % Seg Neutrophils % 56.8 % Lymphocytes % 33.6 % Monocytes % 6.8 % Eosinophils % 2.4 % Basophils % 0.3 % Neutrophils # 4.0 (1.6-8.9) K/mcL Lymphocytes # 2.4 (0.6-4.6) K/mcL Monocytes # 0.5 (0.0-1.3) K/mcL Eosinophils # 0.2 (0.0-0.6) K/mcL Basophils # 0.0 (0.0-0.2) K/mcL Sodium 138 (136-145) mEq/L Potassium 3.1 L (3.5-5.1) mEq/L Chloride 103 (98-107) mEq/L Carbon Dioxide 25 (23-29) mEq/L BUN 7 (6-20) mg/dL Creatinine 0.92 (0.60-1.20) mg/dL Est GFR ( Amer) > 60 (> 60) Est GFR (Non-Af Amer) > 60 (> 60) BUN/Creatinine Ratio 8 (6-26) Glucose 96 (70-105) mg/dL Calculated Osmolality 284 (280-300) Calcium 8.7 (8.6-10.3) mg/dL Total Bilirubin 0.5 (0.3-1.0) mg/dL AST 45 H (13-39) Units/L ALT 59 H (7-52) Units/L Alkaline Phosphatase 99 (34-104) Units/L Serum Total Protein 6.2 L (6.4-8.9) g/dL Albumin 4.1 (3.5-5.7) g/dL Globulin 2.1 L (2.4-3.5) g/dL Albumin/Globulin Ratio 2.0 (1.1-2.2) Lipase 35 (11-82) Units/L Attestation Statement - Attestation Attestation: I examined this patient and my medical decision-making was reviewed with the Resident Physician, Dr. Nunez. I agree with the documented findings, disposition and treatment plan as described except to the extent set forth below. Patient is a 33-year-old white female who presents seem or permit with right upper quadrant abdominal pain radiating through to her back associated with nausea vomiting. Patient rates the pain about an 8 out of 10 in severity and states that this is her third visit to the emergency department after she was seen at the end of April for gallbladder issues. Patient has a cholecystectomy scheduled with Dr. Huang on May 19. Patient had an ultrasound at a prior ED visit showing wall thickening and gallbladder sludge. Patient's labs of to this point been unremarkable. Patient's physical exam findings as documented. Vital signs are stable. Patient with some very mild elevation in her LFTs today and after repeat pain and nausea medicine administration patient is having intractable pain with nausea. This is her third visit since the diagnosis and she has surgery scheduled. We will page surgery to see if we can bring her in for admission to have her surgical procedure done to alleviate her symptoms. Case was discussed with Dr. Barnett who accepted the patient to her service for admission for further evaluation and management.
[2018-05-04] MEDS ORDERED: 0.9 % Sodium Chloride 1,000 ML IVC ONE (16:06)
[2018-05-04] MEDS ORDERED: Hyoscyamine SL 0.125 MG TAB.SUBL SL STA (16:07)
[2018-05-04] MEDS ORDERED: *HR* Promethazine 25 MG/ML VIAL IVP ONE ×2 (16:08→17:47)
[2018-05-04 17:14] LABS: Alanine Aminotransferase 59 Units/L (7-52); Albumin 4.1 g/dL (3.5-5.7); Alkaline Phosphatase 99 Units/L (34-104); Aspartate Amino Transferase 45 Units/L (13-39); BUN/Creatinine Ratio 8 (6-26); Bilirubin,Total 0.5 mg/dL (0.3-1.0); Blood Urea Nitrogen 7 mg/dL (6-20); Calcium 8.7 mg/dL (8.6-10.3); Carbon Dioxide 25 mEq/L (23-29); Chloride 103 mEq/L (98-107); Globulin 2.1 g/dL (2.4-3.5); Glucose 96 mg/dL (70-105); Lipase 35 Units/L (11-82); Osmolality,Calculated 284 (280-300); Potassium 3.1 mEq/L (3.5-5.1); Sodium 138 mEq/L (136-145); Total Protein 6.2 g/dL (6.4-8.9); eGFR For Non-African Americans > 60 (> 60)
[2018-05-04] MEDS ORDERED: Potassium Chloride Elixir 20 MEQ/15 ML UDC PO STA (17:36)
[2018-05-04] MEDS ORDERED: *HR* FentaNYL (PF) 100 MCG/2 ML VIAL IVP ONE (17:47)
[2018-05-04 18:09] LABS: Basophils % 0.3 %; Eosinophils # 0.2 K/mcL (0.0-0.6); Eosinophils % 2.4 %; Hematocrit 40.9 % (35.3-44.9); Immature Granulocytes % 0.1 % (0-4); Lymphocytes # 2.4 K/mcL (0.6-4.6); Lymphocytes % 33.6 %; Mean Corpuscular HGB Conc 33.5 g/dL (31.6-35.5); Mean Corpuscular Hemoglobin 28.1 pg (28.0-33.3); Mean Platelet Volume 10.8 fL (9.4-12.4); Monocytes # 0.5 K/mcL (0.0-1.3); Monocytes % 6.8 %; Platelet Count 172 K/mcL (140-400); Red Blood Count 4.87 M/mcL (3.82-4.97); Red Cell Distribution Width 12.4 % (11.5-14.5); Segmented Neutrophils % 56.8 %
[2018-05-04 18:17] LABS: Hemoglobin 13.7 g/dL (11.5-15.4)
[2018-05-04] MEDS ORDERED: Naloxone 0.4 MG/ML INJ IVP PRN (23:56)
[2018-05-04] MEDS ORDERED: Ondansetron 4 MG/2 ML VIAL IVP PRN (23:56)
[2018-05-05] MEDS: OXYCODONE Oral CONC 10 MG/0.5 ML ORAL.SYG SL SCH ×5 (00:18→20:16)
[2018-05-05] MEDS: 0.9 % Sodium Chloride 1,000 ML IVC SCH ×4 (00:19→23:18)
[2018-05-05] MEDS: *HR* Promethazine 25 MG/ML VIAL IVP PRN ×4 (03:12→18:25)
[2018-05-05 05:51] LABS: Basophils % 0.2 %; Eosinophils # 0.2 K/mcL (0.0-0.6); Eosinophils % 2.9 %; Hematocrit 38.7 % (35.3-44.9); Hemoglobin 12.8 g/dL (11.5-15.4); Immature Granulocytes % 0.5 % (0-4); Lymphocytes # 2.3 K/mcL (0.6-4.6); Lymphocytes % 35.3 %; Mean Corpuscular HGB Conc 33.1 g/dL (31.6-35.5); Mean Corpuscular Hemoglobin 27.9 pg (28.0-33.3); Mean Corpuscular Volume 84.3 fL (83.0-100.0); Mean Platelet Volume 10.3 fL (9.4-12.4); Monocytes # 0.4 K/mcL (0.0-1.3); Monocytes % 6.7 %; Neutrophils # 3.5 K/mcL (1.6-8.9); Platelet Count 168 K/mcL (140-400); Red Blood Count 4.59 M/mcL (3.82-4.97); Red Cell Distribution Width 12.5 % (11.5-14.5); Segmented Neutrophils % 54.4 %
[2018-05-05 06:16] LABS: Alanine Aminotransferase 77 Units/L (7-52); Albumin 3.6 g/dL (3.5-5.7); Albumin/Globulin Ratio 1.9 (1.1-2.2); Alkaline Phosphatase 114 Units/L (34-104); Aspartate Amino Transferase 72 Units/L (13-39); BUN/Creatinine Ratio 6 (6-26); Bilirubin,Direct 0.1 mg/dL (0.0-0.2); Bilirubin,Indirect 0.6 mg/dL (0.0-1.2); Bilirubin,Total 0.7 mg/dL (0.3-1.0); Blood Urea Nitrogen 5 mg/dL (6-20); Calcium 8.3 mg/dL (8.6-10.3); Carbon Dioxide 24 mEq/L (23-29); Chloride 108 mEq/L (98-107); Globulin 1.9 g/dL (2.4-3.5); Glucose 91 mg/dL (70-105); Osmolality,Calculated 285 (280-300); Potassium 3.4 mEq/L (3.5-5.1); Sodium 139 mEq/L (136-145); Total Protein 5.5 g/dL (6.4-8.9); eGFR For Non-African Americans > 60 (> 60)
[2018-05-05] MEDS ORDERED: Pantoprazole 40 MG VIAL IVP SCH (09:00)
--- NOTE | 2018-05-05 10:31 | General Surg History&Physical ---
<Radha Templeton - Last Filed: 05/05/18 13:33> Date of Encounter: 05/05/18 Time of Encounter: 10:31 Assessment and Plan (1) Elevated liver enzymes Current Visit: Yes Status: Acute The assessment and plan as outlined above was discussed with the patient and/or family members who expressed understanding and agreement. All questions were answered. (2) Biliary colic Current Visit: Yes Status: Acute The assessment and plan as outlined above was discussed with the patient and/or family members who expressed understanding and agreement. All questions were answered. Pt recently seen in office and schedule for surgery. Copy of consent placed in hard chart. Surgical intervention int he next 24-48 hours. NPO IVF Biotene GI and DVT prophylaxis Amb TID OOB IS History of Present Illness Chief complaint: right upper abdomen pain, nausea and vomiting HPI: Ms. Kendall is a 33 year old female known to Dr. Huang. She was last seen in the office on 04/30/2018 with complaints of right upper quadrant pain. She was noted to have had an ultrasound on 04/27/2018 showing sludge and borderline gallbladder wall thickening. At that time she stated her pain was not radiating but she did have some vomiting. She was having 4 to 5 liquid bowel movements daily. Her symptoms were thought to be consistent with biliary sludge as the causative factor in her right upper quadrant pain i.e. biliary colic. She was recommended to undergo a laparoscopic cholecystectomy and that was scheduled for later date. She presented to the emergency department on 2017 with complaints of abdominal pain as previously described but is now an 8 out of 10, sharp as well as achy, persistent uncontrollable vomiting stating she cannot hold down liquids, and copious amounts of diarrhea. She endorses a fever but states she did not check temperature. She denies CP, SOB, urinary signs or symptoms. Past Med Surg Social Fam HX - Past Medical History Source: patient, old records reviewed Medical history: arthritis, CVA, migraine, other Additional medical history: [place] in December 2011 Psychiatric history: anxiety, bipolar, depression, prior suicide attempt, schizophrenia, previous psychiatric hospitalization - Past Surgical History Surgical History: appendectomy, hysterectomy, orthopedic, other Additional surgical history: Tubal, ablation, nasal surgery x2, T and A - Social History Smoking Status: Never smoker Smokeless Tobacco Status: No Alcohol use: none Drug use: none - Family History Mother Living Status: Still Living Hx Family Psychosocial Disorders: Yes (Depression) Father Living Status: Age at : 58 Cause of : Cardiac Hx Family Cardiac Disorders: Yes (HTN) Hx Family Endocrine Disorder: Yes (Diabetes) Medications and Allergies Benztropine Mesylate 1 mg PO BID 12/06/15 [History] HYDROcodone/Acet 5/325 mg [[place] 5-325 mg] 1 tab PO Q6H PRN 4 Days #14 tab 04/27 [Rx] ALPRAZolam [Xanax 0.5 MG Tablet] 0.5 mg PO DAILY PRN 05/05/18 [History] Amitriptyline [Elavil] 10 mg PO HS 05/05/18 [History] Aripiprazole [Abilify] 30 mg PO DAILY 05/05/18 [History] Asenapine Maleate [Saphris] 10 mg SL DAILY 05/05/18 [History] Citalopram Hydrobromide [Celexa] 40 mg PO DAILY 05/05/18 [History] Prazosin HCl [Minipress] 6 mg PO HS 05/05/18 [History] Promethazine [Phenergan] 12.5 mg RC Q6HR PRN 05/05/18 [History] Ropinirole [Requip] 5 mg PO HS 05/05/18 [History] hydrOXYzine pamoate [HydrOXYzine Pamoate] 25 mg PO TID 05/05/18 [History] lamoTRIgine [Lamictal] 100 mg PO QAM 05/05/18 [History] lamoTRIgine [Lamictal] 200 mg PO QPM 05/05/18 [History] 3 Allergy/AdvReac Type Severity Reaction Status Date / Time chlorhexidine Allergy See Verified 03/19/18 13:06 Comments lurasidone [From Latuda] Allergy See Verified 03/19/18 13:06 Comments orange (food color) AdvReac Hives Verified 03/19/18 13:06 Review of Systems All systems PM: reviewed and no additional remarkable complaints except as stated All systems PM: The remainder of the systems were reviewed and are negative General Surgery Exam Initial Vital Signs Temp Pulse Resp BP Pulse Ox 98 F 89 18 131/84 99 05/04/18 15:36 05/04/18 15:36 05/04/18 15:36 05/04/18 15:36 05/04/18 15:36 VITAL SIGNS: Reviewed. See [facility] GENERAL: In no apparent distress. HEENT: Normocephalic, atraumatic, extraocular motions intact, oropharynx is pink and moist, there is no neck adenopathy or JVD noted. CHEST/RESPIRATORY: The thorax is free from signs of trauma. Lung sounds: clear to auscultation, normal respiratory effort CARDIAC: Regular rate and rhythm. Normal S1 and S2, without murmurs, gallops, or rubs. VASCULAR: No Edema. 2+ peripheral pulses. ABDOMEN: Obese, protuberant, tenderness to palpation right upper and left upper quadrant MUSCULOSKELETAL: Good range of motion of all major joints. Extremities without clubbing, cyanosis or edema. NEUROLOGIC EXAM: Alert and oriented x 3. Speech normal. Follows commands. PSYCHIATRIC: Mood normal. SKIN: No rash or lesions. Results - Labs 05/05/18 05:25 05/05/18 05:25 Abnormal lab results MCH 27.9 pg (28.0-33.3) L 05/05/18 05:25 Potassium 3.4 mEq/L (3.5-5.1) L 05/05/18 05:25 Chloride 108 mEq/L (98-107) H 05/05/18 05:25 BUN 5 mg/dL (6-20) L 05/05/18 05:25 Calcium 8.3 mg/dL (8.6-10.3) L 05/05/18 05:25 AST 72 Units/L (13-39) H 05/05/18 05:25 ALT 77 Units/L (7-52) H 05/05/18 05:25 Alkaline Phosphatase 114 Units/L (34-104) H 05/05/18 05:25 Serum Total Protein 5.5 g/dL (6.4-8.9) L 05/05/18 05:25 Globulin 1.9 g/dL (2.4-3.5) L 05/05/18 05:25 Diabetes panel 05/05/18 Range/Units 05:25 Sodium 139 (136-145) mEq/L Potassium 3.4 L (3.5-5.1) mEq/L Chloride 108 H (98-107) mEq/L Carbon Dioxide 24 (23-29) mEq/L BUN 5 L (6-20) mg/dL Creatinine 0.87 (0.60-1.20) mg/dL Glucose 91 (70-105) mg/dL Calcium 8.3 L (8.6-10.3) mg/dL AST 72 H (13-39) Units/L ALT 77 H (7-52) Units/L Alkaline Phosphatase 114 H (34-104) Units/L Albumin 3.6 (3.5-5.7) g/dL Calcium panel 05/05/18 Range/Units 05:25 Calcium 8.3 L (8.6-10.3) mg/dL Albumin 3.6 (3.5-5.7) g/dL Pituitary panel 05/05/18 Range/Units 05:25 Sodium 139 (136-145) mEq/L Potassium 3.4 L (3.5-5.1) mEq/L Chloride 108 H (98-107) mEq/L Carbon Dioxide 24 (23-29) mEq/L BUN 5 L (6-20) mg/dL Creatinine 0.87 (0.60-1.20) mg/dL Glucose 91 (70-105) mg/dL Calcium 8.3 L (8.6-10.3) mg/dL Adrenal panel 05/05/18 Range/Units 05:25 Sodium 139 (136-145) mEq/L Potassium 3.4 L (3.5-5.1) mEq/L Chloride 108 H (98-107) mEq/L Carbon Dioxide 24 (23-29) mEq/L BUN 5 L (6-20) mg/dL Creatinine 0.87 (0.60-1.20) mg/dL Glucose 91 (70-105) mg/dL Calcium 8.3 L (8.6-10.3) mg/dL Total Bilirubin 0.7 (0.3-1.0) mg/dL AST 72 H (13-39) Units/L ALT 77 H (7-52) Units/L Alkaline Phosphatase 114 H (34-104) Units/L Albumin 3.6 (3.5-5.7) g/dL All other labs normal. <Sal Huang - Last Filed: 05/05/18 17:00> Date of Encounter: 05/05/18 Assessment and Plan (1) Elevated liver enzymes Current Visit: Yes Status: Acute The assessment and plan as outlined above was discussed with the patient and/or family members who expressed understanding and agreement. All questions were answered. (2) Biliary colic Current Visit: Yes Status: Acute The assessment and plan as outlined above was discussed with the patient and/or family members who expressed understanding and agreement. All questions were answered. History of Present Illness HPI: Ms. Kendall is a 33 year old female Review of Systems All systems PM: The remainder of the systems were reviewed and are negative General Surgery Exam Initial Vital Signs Temp Pulse Resp BP Pulse Ox 98 F 89 18 131/84 99 05/04/18 15:36 05/04/18 15:36 05/04/18 15:36 05/04/18 15:36 05/04/18 15:36 Results - Labs 05/05/18 05:25 05/05/18 05:25 Abnormal lab results MCH 27.9 pg (28.0-33.3) L 05/05/18 05:25 Potassium 3.4 mEq/L (3.5-5.1) L 05/05/18 05:25 Chloride 108 mEq/L (98-107) H 05/05/18 05:25 BUN 5 mg/dL (6-20) L 05/05/18 05:25 Calcium 8.3 mg/dL (8.6-10.3) L 05/05/18 05:25 AST 72 Units/L (13-39) H 05/05/18 05:25 ALT 77 Units/L (7-52) H 05/05/18 05:25 Alkaline Phosphatase 114 Units/L (34-104) H 05/05/18 05:25 Serum Total Protein 5.5 g/dL (6.4-8.9) L 05/05/18 05:25 Globulin 1.9 g/dL (2.4-3.5) L 05/05/18 05:25 Stl C. diff Tox A/B PCR See reflex test (Not detect) A 05/05/18 14:45 Stool Cryptosporidium PCR DETECTED (Not detect) A* 05/05/18 14:45 Diabetes panel 05/05/18 Range/Units 05:25 Sodium 139 (136-145) mEq/L Potassium 3.4 L (3.5-5.1) mEq/L Chloride 108 H (98-107) mEq/L Carbon Dioxide 24 (23-29) mEq/L BUN 5 L (6-20) mg/dL Creatinine 0.87 (0.60-1.20) mg/dL Glucose 91 (70-105) mg/dL Calcium 8.3 L (8.6-10.3) mg/dL AST 72 H (13-39) Units/L ALT 77 H (7-52) Units/L Alkaline Phosphatase 114 H (34-104) Units/L Albumin 3.6 (3.5-5.7) g/dL Calcium panel 05/05/18 Range/Units 05:25 Calcium 8.3 L (8.6-10.3) mg/dL Albumin 3.6 (3.5-5.7) g/dL Pituitary panel 05/05/18 Range/Units 05:25 Sodium 139 (136-145) mEq/L Potassium 3.4 L (3.5-5.1) mEq/L Chloride 108 H (98-107) mEq/L Carbon Dioxide 24 (23-29) mEq/L BUN 5 L (6-20) mg/dL Creatinine 0.87 (0.60-1.20) mg/dL Glucose 91 (70-105) mg/dL Calcium 8.3 L (8.6-10.3) mg/dL Adrenal panel 05/05/18 Range/Units 05:25 Sodium 139 (136-145) mEq/L Potassium 3.4 L (3.5-5.1) mEq/L Chloride 108 H (98-107) mEq/L Carbon Dioxide 24 (23-29) mEq/L BUN 5 L (6-20) mg/dL Creatinine 0.87 (0.60-1.20) mg/dL Glucose 91 (70-105) mg/dL Calcium 8.3 L (8.6-10.3) mg/dL Total Bilirubin 0.7 (0.3-1.0) mg/dL AST 72 H (13-39) Units/L ALT 77 H (7-52) Units/L Alkaline Phosphatase 114 H (34-104) Units/L Albumin 3.6 (3.5-5.7) g/dL All other labs normal. - Attending Attestation I have personally performed a face to face evaluation on this patient. I have reviewed and agree with the care plan. History and Exam by me shows: I reviewed the above assessment and evaluation and agree with the above plan. We will proceed with a laparoscopic cholecystectomy today.
[2018-05-05] MEDS ORDERED: Saliva Stimulant 100ml BOTTLE PO PRN ×2 (12:45→19:05)
[2018-05-05] MEDS ORDERED: ALPRAZolam 0.5 MG TABLET PO PRN ×2 (12:54→19:05)
[2018-05-05] MEDS ORDERED: hydrOXYzine pamoate 25 MG CAPSULE PO SCH (15:00)
[2018-05-05] MEDS ORDERED: *HR* FentaNYL (PF) 100 MCG/2 ML VIAL ONE ×2 (16:13→17:18)
[2018-05-05] MEDS ORDERED: *HR* Propofol 200 MG/20 ML VIAL IVP ONE (16:14)
[2018-05-05] MEDS ORDERED: *HR* Midazolam HCl 2 MG/2 ML VIAL ONE (16:14)
--- NOTE | 2018-05-05 16:15 | Anesthesia Evaluation PreOp ---
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: CVA (S/P CVA 2011, denies residual deficit) Other Medical History: Other (obesity BMI=48.8, anxiety/depression) Anesthesia History: No Prior Anesthetic Complications, Past Anesthesia ( hysterectomy) Alcohol Use: none Drug use: none Medications and Allergies Benztropine Mesylate 1 mg PO BID 12/06/15 [History] HYDROcodone/Acet 5/325 mg [[place] 5-325 mg] 1 tab PO Q6H PRN 4 Days #14 tab 04/27 [Rx] ALPRAZolam [Xanax 0.5 MG Tablet] 0.5 mg PO DAILY PRN 05/05/18 [History] Amitriptyline [Elavil] 10 mg PO HS 05/05/18 [History] Aripiprazole [Abilify] 30 mg PO DAILY 05/05/18 [History] Asenapine Maleate [Saphris] 10 mg SL DAILY 05/05/18 [History] Citalopram Hydrobromide [Celexa] 40 mg PO DAILY 05/05/18 [History] Prazosin HCl [Minipress] 6 mg PO HS 05/05/18 [History] Promethazine [Phenergan] 12.5 mg RC Q6HR PRN 05/05/18 [History] Ropinirole [Requip] 5 mg PO HS 05/05/18 [History] hydrOXYzine pamoate [HydrOXYzine Pamoate] 25 mg PO TID 05/05/18 [History] lamoTRIgine [Lamictal] 100 mg PO QAM 05/05/18 [History] lamoTRIgine [Lamictal] 200 mg PO QPM 05/05/18 [History] 3 Allergy/AdvReac Type Severity Reaction Status Date / Time chlorhexidine Allergy See Verified 03/19/18 13:06 Comments lurasidone [From Latuda] Allergy See Verified 03/19/18 13:06 Comments orange (food color) AdvReac Hives Verified 03/19/18 13:06 - Meds/Allergy Pre-op Review Medications Reviewed: Yes Allergies Reviewed: Yes Beta Blockers on Current Med List: No Anesthesia Results - Labs 05/05/18 05:25 05/05/18 05:25 - Imaging EKG: report reviewed (07/22/2017 SINUS RHYTHM INCOMPLETE RIGHT BUNDLE BRANCH BLOCK) Anesthesia Exam Vital Signs/O2 Sat/Glucose, Most Recent Temp Pulse Resp BP Pulse Ox 98.3 F 58 14 107/68 96 05/05/18 10:20 05/05/18 10:20 05/05/18 10:20 05/05/18 10:20 05/05/18 10:20 Blood Glucose* 91 Height: 5'9''/1.75m Weight: 330 lbs/149.9 kg NPO (# of Hours): 8 Pain Scale: 3 (abdomen) Pain Scale Used: Numeric (1 - 10) - HEENT Pupil (Motor): EOMI Mallampati: III Teeth: Normal Oral Opening: Greater than 3 - INGOT BUGGY OPERATOR LOC: Oriented INGOT BUGGY OPERATOR Motor: Normal RUE, Normal LUE, Normal RLE, Normal LLE, Normal Face INGOT BUGGY OPERATOR Sensory: Normal: RUE, LUE, RLE, LLE, Face - Cardiac Rhythm: Regular Murmur: None - Pulmonary Breath Sounds: bilateral Clear Respiratory Effort: Symmetrical Anesthesia Assess/Plan ASA Score: 3 Modified Fernando Scale for Level of Consciousness: Cooperative, oriented, and tranquil Anesthetic Plan: General Monitoring Plan: Standard Monitors Recovery Plan: PACU
[2018-05-05] MEDS ORDERED: *HR* Succinylcholine 200 MG/10 ML VIAL IVP ONE (16:16)
[2018-05-05] MEDS ORDERED: *HR* Rocuronium Bromide 50 MG/5 ML VIAL ONE (16:16)
[2018-05-05] MEDS ORDERED: Lidocaine -MPF 2% 2 ML VIAL ONE (16:16)
[2018-05-05] MEDS ORDERED: Neostigmine Methylsulfate 3 MG/3 ML SYRINGE ONE (16:18)
[2018-05-05] MEDS ORDERED: Ondansetron 4 MG/2 ML VIAL ONE (16:19)
[2018-05-05] MEDS ORDERED: Dexamethasone 4 MG/ML VIAL ONE (16:19)
[2018-05-05] MEDS ORDERED: Bupivacaine/EPI 1:200k 0.5%PF 30 ML VIAL ONE (16:19)
[2018-05-05] MEDS ORDERED: Lidocaine -MPF 4% 5 ML AMPUL ONE (16:22)
[2018-05-05] MEDS ORDERED: cefOXitin 2,000 MG in Water for inj. (sterile) 20 ML 20 ML IVP ONE (16:27)
[2018-05-05] MEDS ORDERED: CefOXitin 2,000 MG VIAL ONE (16:27)
[2018-05-05 16:36] LABS: C.difficile Toxin A/B by PCR See reflex test (Not detect); Campylobacter by PCR Not detected (Not detect); E. coli O157 by PCR Not detected (Not detect); Enteroaggregative E.coli(EAEC) Not detected (Not detect); Enteropathogenic E.coli(EPEC) Not detected (Not detect); Enterotoxigenic E.coli (ETEC) Not detected (Not detect); Plesiomonas shigelloides PCR Not detected (Not detect); Salmonella PCR Not detected (Not detect); Shig/EnteroinvasiveE coli EIEC Not detected (Not detect); Shigalike tox-prod E coli STEC Not detected (Not detect); Vibrio PCR Not detected (Not detect); Vibrio cholerae PCR Not detected (Not detect); Yersinia enterocolitica PCR Not detected (Not detect)
[2018-05-05 16:42] LABS: Adenovirus F 40/41 PCR Not detected (Not detect); Astrovirus PCR Not detected (Not detect); Cryptosporidium by PCR DETECTED (Not detect); Cyclospora cayetanensis PCR Not detected (Not detect); Entamoeba histolytica PCR Not detected (Not detect); Giardia lamblia PCR Not detected (Not detect); Norovirus GI/GII PCR Not detected (Not detect); Rotavirus A PCR Not detected (Not detect); Sapovirus PCR Not detected (Not detect)
[2018-05-05] MEDS ORDERED: *HR* Morphine 10 MG/ML VIAL ONE (17:24)
[2018-05-05] MEDS ORDERED: Ondansetron 4 MG/2 ML VIAL IVP ONE (17:31)
[2018-05-05] MEDS ORDERED: *HR* OxyCODONE Immed Rel 5 MG TABLET PO PRN (17:31)
--- NOTE | 2018-05-05 17:41 | Operative Note ---
Date of procedure: 05/05/18 Pre-op diagnosis: Biliary colic Post-op diagnosis: same Procedure: Laparoscopic cholecystectomy Anesthesia: GETA Surgeon: Sal Huang Was there an geriatric nurse assistant present: Yes Travel Specialist: Nimco Bianchi Estimated blood loss (cc): 12 Specimen: gallbladder and contents Condition: stable Disposition: PACU Procedure in Detail: Date of surgery: 05/05/18 After properly identifying the patient, the patient was brought to the operating room and placed in the supine position. After proper IV sedation was achieved followed by general endotracheal intubation, the patient's abdomen was prepped and draped in a normal sterile fashion. A timeout was performed noting the patient's name and type of procedure to be performed. A super umbilical incision with an 11 blade scalpel was made down to level of the rectus fascia. Once the rectus fascia was identified and was incised and a 12 mm port was placed to the incision and the abdomen was insufflated with carbon dioxide. A laparoscopic camera was placed through the port which showed no injury to the intra-abdominal organs upon entry. A subxiphoid 5 mm port and a right subcostal margin 5 mm port were then placed under direct camera visualization. She was placed in a reverse Trendelenburg position and the gallbladder was noted to be somewhat distended. A laparoscopic needle decompression device was used to remove approximately 50 mL of bilious fluid. This allowed for grasping of the gallbladder and retraction superiorly. The peritoneal covering overlying the cystic duct and cystic artery were bluntly dissected away with a [place] dissector. The cystic duct and cystic artery then further isolated, clipped with laparoscopic clips, and incised dwith laparoscopic scissors. The gallbladder was then dissected away from the gallbladder fossa with Bovie cauterization while Bovie cauterization was used to maintain hemostasis. Once the gallbladder was dissected free it was removed from the abdomen via an Endobag. Reinspection of the right upper quadrant demonstrated maintenance of hemostasis and right upper quadrant was irrigated with normal saline solution followed by removal of all ports after the abdomen was desufflated. All 3 incision sites were injected with half percent Marcaine solution and the rectus fascia for the supraumbilical incision was reapproximated in a figure-of- eight fashion with 0 Vicryl sutures. The subcutaneous tissue was reapproximated with 3-0 Vicryl sutures and the epidermal and dermal layers for the remaining incisions were closed with 4-0 Monocryl sutures. Needle, sponge, and answering counts were correct 2 and the incisions were covered with Steri- Strips and Band-Aids. The patient was aroused from IV sedation, extubated in the operating room without complication, and transported to the recovery room stable condition.
[2018-05-05] MEDS: *HR* HYDROmorphone (PF) 1 MG/ML SYRINGE IVP PRN ×4 (17:58→18:28)
[2018-05-05] MEDS ORDERED: Ketorolac 30 MG/ML VIAL IVP ONE (18:21)
--- NOTE | 2018-05-05 18:57 | Anesthesia Evaluation Post Op ---
Date of Encounter: 05/05/18 Time of Encounter: 18:57 - Vital Signs Vital Signs: Vital Signs/O2 Sat, Most Current Temp Pulse Resp BP Pulse Ox 98.4 F 65 16 141/82 96 05/05/18 18:22 05/05/18 18:32 05/05/18 18:32 05/05/18 18:32 05/05/18 18:32 - Lungs Lungs: Clear Ascult./Percussion - Airway Airway: Non-obstructed - Cardiovascular Regular Rate - Mental Status Mental Status: Alert & Oriented, Answers Appropriately - Pain Pain Scale: 4 Pain Scale used: Numeric (1 - 10) - Nausea Vomiting Nausea Vomiting: Not Present - Hydration Hydration: NPO, Has not voided - Discharge PostOp Status: Transfer Patient to floor
[2018-05-05] MEDS ORDERED: Naloxone 0.4 MG/ML INJ IVP PRN (19:05)
[2018-05-05] MEDS ORDERED: rOPINIRole 1 MG TABLET PO SCH (21:00)
[2018-05-05] MEDS: metroNIDAZOLE 500 MG TABLET PO SCH (23:19)
[2018-05-05] MEDS: rOPINIRole 1 MG TABLET PO SCH (23:19)
[2018-05-05] MEDS: hydrOXYzine pamoate 25 MG CAPSULE PO SCH (23:20)
[2018-05-05] MEDS: MORPHINE SUL Oral CONC 10 MG/0.5 ML ORAL.SYG SL PRN (23:40)
[2018-05-06] MEDS ORDERED: MetroNIDAZOLE 500 MG/100 ML 500 MG/100 ML BAG IVPB SCH
[2018-05-06] MEDS: cefOXitin 1,000 MG in Water for inj. (sterile) 20 ML 10 ML IVP SCH ×3 (02:12→16:13)
[2018-05-06 03:06] LABS: Hepatitis A Antibody IgM Nonreactive (Nonreactive); Hepatitis B Core IgM Nonreactive (Nonreactive); Hepatitis B Surface Antigen Nonreactive (Nonreactive); Hepatitis C Virus Antibody Nonreactive (Nonreactive)
[2018-05-06] MEDS: OXYCODONE Oral CONC 10 MG/0.5 ML ORAL.SYG SL PRN ×3 (03:37→23:51)
[2018-05-06] MEDS: *HR* Promethazine 25 MG/ML VIAL IVP PRN ×3 (03:38→21:22)
[2018-05-06] MEDS: MORPHINE SUL Oral CONC 10 MG/0.5 ML ORAL.SYG SL PRN (06:50)
[2018-05-06] MEDS ORDERED: lamoTRIgine 100 MG TABLET PO SCH (09:00)
[2018-05-06] MEDS ORDERED: (Asenapine Maleate [Saphris] 10 MG) SL SCH (09:00)
[2018-05-06] MEDS ORDERED: ARIPiprazole 10 MG TABLET PO SCH ×2 (09:00)
[2018-05-06] MEDS: lamoTRIgine 100 MG TABLET PO SCH (09:52)
[2018-05-06] MEDS: metroNIDAZOLE 500 MG TABLET PO SCH ×3 (09:53→21:20)
[2018-05-06] MEDS: hydrOXYzine pamoate 25 MG CAPSULE PO SCH ×3 (09:53→21:21)
[2018-05-06] MEDS: Pantoprazole 40 MG VIAL IVP SCH (09:55)
[2018-05-06] MEDS: 0.9 % Sodium Chloride 1,000 ML IVC SCH ×2 (12:30→23:38)
--- NOTE | 2018-05-06 14:03 | Discharge Summary ---
Date of Encounter: 05/06/18 Time of Encounter: 12:00 - Discharge Diagnosis (1) Biliary colic Priority: Primary Status: Resolved (2) Clostridium difficile diarrhea Priority: Secondary Status: Acute General Surgery Exam Initial Vital Signs Temp Pulse Resp BP Pulse Ox 98 F 89 18 131/84 99 05/04/18 15:36 05/04/18 15:36 05/04/18 15:36 05/04/18 15:36 05/04/18 15:36 - General physical appearance well developed, well nourished, no distress - Eyes normal ocular movement - ENT normal mucosa, atraumatic, normocephalic - Neck trachea midline - Respiratory normal respiratory effort, clear to auscultation - Cardiovascular Cardiovascular exam: Present: RRR, 15, 16 - Abdomen Abdomen general surgery: Present: bowel sounds present, soft, tender (Expected postoperative tenderness) - Incision Incision: Present: clean and dry, intact - Integumentary Integumentary general surgery: Present: warm and dry - Neurologic Present: CN 2-12 grossly intact - Psychiatric Psychiatric general surgery: Present: appropriate, oriented to person, oriented to place, oriented to time, speech is normal, memory intact - Hospital Course Hospital course: Ms. Kendall is a 33 year old female with a history of recurrent biliary colic. She has been seen and evaluated by Dr. Huang as an outpatient and had been scheduled for an elective gallbladder removal. The patient's did have a recurrent episode and was subsequently admitted to the hospital for further treatment. She was taken to the operating room for a laparoscopic cholecystectomy. She is also known to have diarrhea and had stool studies complete. She is positive for Clostridium difficile. She was treated for this during her hospitalization. On postoperative day #1, she is tolerating a regular diet without nausea or vomiting. Her vital signs are stable and she is afebrile. Her postoperative pain is controlled. She is ambulating and voiding without difficulty. We will begin discharge planning to home and plan for continued treatment of her Clostridium difficile infection. She will follow-up in the office in the next 10-14 days. - Time Spent with Patient Total time spent providing and/or coordinating discharge services: Less than 30 minutes - Discharge Medications Prescriptions: OxyCODONE/APAP 5/325 [Percocet 5/325 MG] 1 each PO Q6HR PRN 5 Days #20 tablet PRN Reason: Pain Ibuprofen [Ibu] 800 mg PO TID #50 tablet Vancomycin HCl 250 mg PO QID 10 Days #40 cap Home Medications: Benztropine Mesylate 1 mg PO BID 12/06/15 [History] ALPRAZolam [Xanax 0.5 MG Tablet] 0.5 mg PO DAILY PRN 05/05/18 [History] Amitriptyline [Elavil] 10 mg PO HS 05/05/18 [History] Aripiprazole [Abilify] 30 mg PO DAILY 05/05/18 [History] Asenapine Maleate [Saphris] 10 mg SL DAILY 05/05/18 [History] Citalopram Hydrobromide [Celexa] 40 mg PO DAILY 05/05/18 [History] Prazosin HCl [Minipress] 6 mg PO HS 05/05/18 [History] Promethazine [Phenergan] 12.5 mg RC Q6HR PRN 05/05/18 [History] Ropinirole [Requip] 5 mg PO HS 05/05/18 [History] hydrOXYzine pamoate [HydrOXYzine Pamoate] 25 mg PO TID 05/05/18 [History] lamoTRIgine [Lamictal] 100 mg PO QAM 05/05/18 [History] lamoTRIgine [Lamictal] 200 mg PO QPM 05/05/18 [History] Ibuprofen [Ibu] 800 mg PO TID #50 tablet 05/06/18 [Rx] OxyCODONE/APAP 5/325 [Percocet 5/325 MG] 1 each PO Q6HR PRN 5 Days #20 tablet [Rx] Vancomycin HCl 250 mg PO QID 10 Days #40 cap 05/06/18 [Rx] Allergies/Adverse Reactions: 3 Allergy/AdvReac Type Severity Reaction Status Date / Time chlorhexidine Allergy See Verified 03/19/18 13:06 Comments lurasidone [From Latuda] Allergy See Verified 03/19/18 13:06 Comments orange (food color) AdvReac Hives Verified 03/19/18 13:06 Date of admission: 05/04/18 20:35 Primary care physician: Arie Renner MD Discharging clinician: Sal Saini) Anticipated date of discharge: 05/06/18 Labs on day of discharge: Labs from last 24 hours 05/05/18 05/05/18 05/05/18 14:45 14:45 10:46 Stl C. cayetanensis PCR Not detected Stool Rotavirus A PCR Not detected Stl Adenov F 40/41 PCR Not detected Stool Astrovirus (PCR) Not detected Stool Campylobacter PCR Not detected Stl C. diff Tox B Gene Positive A Stl C. diff Tox A/B PCR See reflex test A Stool Cryptosporidium PCR DETECTED A* Stl Sh Tox Pr E STEC PCR Not detected Stool E coli O157 PCR Not detected Stl Enterotoxigenic E PCR Not detected Stool EPEC (PCR) Not detected Stool EAEC (PCR) Not detected Stl E. histolytica PCR Not detected Stool Giardia Lamblia PCR Not detected Stool Salmonella PCR Not detected Stool Sapovirus (PCR) Not detected Stl P. shigelloides PCR Not detected Stl Shigella/EIEC PCR Not detected St Y.enterocolitica PCR Not detected Stool Vibrio (PCR) Not detected Stl Vibrio cholerae PCR Not detected Stl Norovirus GI/GII PCR Not detected Stl GI Panel (PCR) Com See below Hepatitis A IgM Ab Nonreactive Hep Bs Antigen Nonreactive Hep B Core IgM Ab Nonreactive Hepatitis C Ab Screen Nonreactive - Patient Status Disposition: Home, Self-Care Condition: Good Functional capacity at discharge: independent ambulation Overall status at discharge: patient is progressing back to baseline - Discharge Instructions Follow Up With: Arie Renner MD [Primary Care Provider] - Radha Templeton CNP [Advanced Practice Nurse] - 05/19/18 1:45 pm (surgery follow -up) Additional Instructions: #1 may shower 05/07/18, no tub bath or swimming for 2 weeks #2 wash incisions with soap and water and pat dry daily #3 no lifting, pushing, pulling more than 15 pounds for the next 2 weeks #4 no driving until off narcotics for 24 hours and able to safely react in the car #5 may climb stairs - Diet and Activity Activity: increase activity as tolerated (See additional instructions above) Diet: low fat, low cholesterol - Attending Attestation For this encounter, I have reviewed the WEDGER MACHINE or PA documentation, treatment plan, and medical decision making; and I have had face to face time with this patient.
[2018-05-06] MEDS: Ondansetron 4 MG/2 ML VIAL IVP PRN (16:13)
[2018-05-06] MEDS: *HR* Heparin 5,000 UNIT/ML VIAL SQ SCH (21:20)
[2018-05-06] MEDS: rOPINIRole 1 MG TABLET PO SCH (21:21)
[2018-05-07] MEDS: Ondansetron 4 MG/2 ML VIAL IVP PRN ×2 (00:35→15:34)
[2018-05-07 04:20] VITALS: BP 123/73
[2018-05-07] MEDS: ASENAPINE MALEATE 10 MG SL SCH ×2 (05:24→09:31)
[2018-05-07] MEDS: *HR* Heparin 5,000 UNIT/ML VIAL SQ SCH (05:25)
[2018-05-07] MEDS: *HR* Promethazine 25 MG/ML VIAL IVP PRN ×2 (05:28→11:12)
[2018-05-07] MEDS: lamoTRIgine 100 MG TABLET PO SCH (09:30)
[2018-05-07] MEDS: Pantoprazole 40 MG VIAL IVP SCH (09:30)
[2018-05-07] MEDS: hydrOXYzine pamoate 25 MG CAPSULE PO SCH ×2 (09:30→15:34)
[2018-05-07] MEDS: metroNIDAZOLE 500 MG TABLET PO SCH (09:30)
[2018-05-07] MEDS: 0.9 % Sodium Chloride 1,000 ML IVC SCH (11:15)
[2018-05-07] MEDS: Vancomycin Oral Soln 125 MG/2.5 ML UDC PO SCH ×2 (11:17→13:19)
[2018-05-07] MEDS: MORPHINE SUL Oral CONC 10 MG/0.5 ML ORAL.SYG SL PRN (13:07)
[2018-05-07] MEDS ORDERED: *HR* Promethazine 25 MG/ML VIAL IM ONE (17:28)
--- NOTE | 2018-05-07 17:36 | Event Note ---
Date of Encounter: 05/06/18 Time of Encounter: 17:34 Due to problems related to nausea and vomiting after being assessed in the afternoon for possible discharge, the patient will remain as in inpatient and will have combination zofran and phenergan for nausea.
== END 2018-05-07 17:55 | disposition home or self-care (01) ==
LOC: EMEROOARM 15:26 → 3ANU 15:26
PROVIDERS: ADMIT Surgery; ATTEND Surgery

== ENCOUNTER 2019-01-05 11:59 | Observation (INO) ==
[2019-01-05] MEDS ORDERED: Aspirin 81 MG TAB.CHEW PO ONE (12:02)
[2019-01-05 12:38] LABS: Bilirubin,Urine Large (Negative); Blood,Urine Negative (Negative); Clarity,Urine Cloudy (Clear); Color,Urine Yellow (Yellow); Glucose,Urine (UA) Normal (Normal); Ketones,Urine Negative (Negative); Leukocyte Esterase,Urine Small (Negative); Nitrite,Urine Negative (Negative); Protein,Urine Negative (Neg-Trace); Specific Gravity,Urine 1.024 (1.010-1.025); Urobilinogen,Urine Normal (Normal)
[2019-01-05 12:40] LABS: Bacteria,Urine Moderate per hpf (None-Few); RBC,Urine 0-3 per hpf (0-3); Squamous Epithelial Cell,Urine Many per lpf (None-Few); WBC,Urine 15-30 per hpf (0-3)
[2019-01-05 12:45] LABS: Basophils % 0.3 %; Eosinophils # 0.3 K/mcL (0.0-0.6); Eosinophils % 3.4 %; Hematocrit 43.6 % (35.3-44.9); Hemoglobin 14.4 g/dL (11.5-15.4); Immature Granulocytes % 0.4 % (0-4); Lymphocytes # 2.9 K/mcL (0.6-4.6); Lymphocytes % 29.8 %; Mean Corpuscular Hemoglobin 28.6 pg (28.0-33.3); Mean Corpuscular Volume 86.5 fL (83.0-100.0); Mean Platelet Volume 10.3 fL (9.4-12.4); Monocytes # 0.5 K/mcL (0.0-1.3); Monocytes % 5.3 %; Neutrophils # 5.9 K/mcL (1.6-8.9); Platelet Count 199 K/mcL (140-400); Red Blood Count 5.04 M/mcL (3.82-4.97); Red Cell Distribution Width 12.9 % (11.5-14.5); Segmented Neutrophils % 60.8 %
[2019-01-05 12:57] LABS: Prothrombin Time 11.5 Seconds (9.4-12.1)
[2019-01-05 12:59] LABS: Activated Partial Thrombo Time 32.4 Seconds (26.0-36.0)
[2019-01-05] MEDS ORDERED: Metoclopramide 10 MG/2 ML VIAL IVP ONE (13:00)
[2019-01-05] MEDS ORDERED: 0.9 % Sodium Chloride 1,000 ML IVC ONE (13:00)
[2019-01-05] MEDS ORDERED: Ketorolac 15 MG/ML VIAL IVP ONE (13:00)
[2019-01-05 13:02] LABS: BUN/Creatinine Ratio 20 (6-26); Blood Urea Nitrogen 17 mg/dL (6-20); Calcium 9.2 mg/dL (8.6-10.3); Carbon Dioxide 24 mEq/L (23-29); Chloride 108 mEq/L (98-107); Glucose 98 mg/dL (70-105); Osmolality,Calculated 282 (280-300); Potassium 3.8 mEq/L (3.5-5.1); Sodium 135 mEq/L (136-145); eGFR For Non-African Americans > 60 (> 60)
[2019-01-05] MEDS ORDERED: Nitroglycerin 0.4 MG TAB.SUBL SL SCH (14:15)
[2019-01-05] MEDS: Nitroglycerin 0.4 MG TAB.SUBL SL PRN ×2 (14:32→14:39)
[2019-01-05] MEDS ORDERED: *HR* Morphine 2 MG/ML SYRINGE IVP ONE (14:50)
--- NOTE | 2019-01-05 14:55 | Electrocardiograph Report ---
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
--- NOTE | 2019-01-05 14:55 | Electrocardiograph Report ---
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
[2019-01-05] MEDS ORDERED: Ondansetron 4 MG/2 ML VIAL IVP ONE ×2 (15:28→21:24)
--- NOTE | 2019-01-05 15:28 | Emergency Department Note ---
Disposition Clinical Impression: Chest pain, Obesities, morbid Disposition: Admitted As Inpatient Condition: Fair Referrals: Arie Renner MD [Primary Care Provider] - Forms: ED Satisfaction Letter Time of Disposition: 20:13 Chest Pain HPI - General Chief Complaint: ED Chest Pain Stated Complaint: CP Time Seen by Provider: 01/05/19 12:02 Source: patient Mode of arrival: ambulatory Limitations: no limitations Vital Signs Reviewed: Yes Nursing Notes Reviewed: Yes - History of Present Illness HPI Narrative: Patient presents emergency room with complaint of left-sided chest pain that radiates down her left chest wall and into her left arm. She denies any history of cardiac related disease. Symptoms came on yesterday and is been persistent since then. Patient denies any travel falls or injuries. Pt complaint: chest pain Onset (ago): Just [employer] WORK[employer] Duration: constant Pain Location: left chest Severity: mild Severity scale (1-10): 6 Quality: aching, sharp Pain Radiation: LUE Improves with: nothing Worsens with: movement Associated symptoms: Denies: nausea, vomiting Treatments prior to arrival chest pain: none - Related Data Home Medications Medication Instructions Recorded Confirmed Prazosin HCl [Minipress] 6 mg PO HS 05/05/18 05/05/18 Ropinirole [Requip] 5 mg PO HS 05/05/18 05/05/18 Omeprazole 10/13/18 Vistaril 10/13/18 Xanax 10/13/18 Atorvastatin [Lipitor] 10 mg PO HS 12/29/18 12/29/18 Brexpiprazole [Rexulti] 1 mg PO 12/29/18 Fioricet 12/29/18 Mobic 12/29/18 Topiramate [Trokendi Xr] 25 mg PO 12/29/18 Vortioxetine Hydrobromide 10 mg PO 12/29/18 [Trintellix] Previous Rx's Medication Instructions Recorded Ketorolac [Toradol] 10 mg PO Q6HR #15 tablet 12/29/18 Allergies Allergy/AdvReac Type Severity Reaction Status Date / Time chlorhexidine Allergy See Verified 12/29/18 14:38 Comments lurasidone [From Latuda] Allergy See Verified 12/29/18 14:38 Comments orange (food color) AdvReac Hives Verified 12/29/18 14:38 All systems ED: reviewed and negative except as stated. Review of Systems: As Per HPI Constitutional: Denies: fever, chills Cardiovascular: Reports: chest pain, palpitations. Denies: dyspnea on exertion, orthopnea, edema Respiratory: Denies: cough, dyspnea Gastrointestinal: Denies: abdominal pain, nausea, vomiting, diarrhea Genitourinary: Denies: urgency, dysuria Musculoskeletal: Denies: back pain, neck pain Integumentary: Denies: rash Neurological: Denies: headache Psychiatric: Reports: anxiety. Denies: depression Endocrine: Denies: fatigue Chest Pain PMH - Past Medical History Medical history: Reports: CVA, hyperlipidemia, migraine Surgical history: Reports: appendectomy, hysterectomy, orthopedic, other Psychiatric history: Reports: anxiety, bipolar, depression, prior suicide attempt, schizophrenia, previous psychiatric hospitalization [employer] history: Reports: polycystic ovary syndrome, bilateral tubal ligation - Social History Smoking Status: Former smoker Alcohol use: Reports: none Drug use: Reports: none Physical Exam - General Limitations: no limitations General appearance: alert - Head Head exam: atraumatic, normocephalic, normal inspection - ENT ENT exam: normal exam, normal oropharynx, mucous membranes moist - Neck Neck exam: Present: normal inspection, full ROM, trachea midline - Chest Chest inspection: Present: normal inspection, symmetric chest wall rise. Absent: tenderness - Respiratory Respiratory exam: Present: normal lung sounds bilaterally. Absent: respiratory distress, accessory muscle use - Cardiovascular Cardiovascular exam: Present: regular rate, normal rhythm, normal heart sounds - Abdominal Exam Abdominal exam: Present: soft, Non-Tender, normal bowel sounds. Absent: tenderness, distention, guarding, rebound, rigidity, Olivares's sign, Rovsing's sign, tenderness at McBurney's Point - Extremities Exam Extremities exam: Present: normal inspection, full ROM. Absent: tenderness, pedal edema - Back Exam Back exam: Present: normal inspection - Neurological Exam Neurological exam: Present: alert, oriented X3, CN II-XII intact, normal gait - Skin Skin exam: Present: warm, dry, intact, normal color Course Course Narrative: Patient seen and examined the time of arrival. See history of present illness. 33-year-old female presents emergency room a described left-sided chest pain that radiates up into her neck and shoulder. She said the symptoms on and off for several days of persistently last 24 hours. She denies any falls trauma or injury. She does not have any history of cardiac related issues. She does not have early history of cardiac in her family. She denies any concern for blood clots. She has not had any recent fevers or chills. Denies any nausea vomiting or diarrhea. She has not fallen or injured herself. Vital signs are stable. Patient has a negative heart score as well as a negative perc score. Patient is anxious. Head is atraumatic. Pupils are equal and reactive. Oropharynx is patent. Trachea is midline. Lungs are clear to auscultation bilaterally. No crepitus deformity or injury noted to the chest wall. Heart is regular with no murmurs. Extremities are normal. No reproducible pain with movement of the bilateral shoulders elbows or wrists. Pulses in the radial distribution are symmetrical. Abdomen is soft no pulsatile masses or lesions. Extremities otherwise normal. Pelvis is stable. Patient walked in the emergency room under her own power and in no distress. Patient is describing persistent pain in left side of her chest wall. She has been provided with migraine cocktail here secondary to a described headache. She was also given pain medication by mouth. EKG chest x-ray CBC chemistry troponin along with BNP and d-dimer will be collected. Disposition to be determined once full workup and treatment course have been established. Patient's symptoms are not consistent with angina at this time. There are more consistent with anxiety and stress related issues. She does describe that she has been under a great deal of stress. She will have workup completed and then disposition determined. A glycerin trial and aspirin will be given for symptomatic control to help determine the presenting complaint. - Reevaluation(s) Reevaluation #1: Patient has negative d-dimer. Troponin labs otherwise unremarkable. Patient is feeling better after the Ativan was given. Nitroglycerin did not help. The remainder the workup has been unremarkable. We will continue to monitor here in the emergency room until symptoms are more controlled and disposition is determined. When I went back and reevaluated the patient she was initially sleeping in the bed saying that she had 5 out of 10 pain. Disposition pending the remainder the workup. Time: 16:35 Reevaluation #2: Patient was feeling better. She then had cramping discomfort in her midepigastrium into her back again. Liver function testing lipase will be added on along with a GI cocktail and Bentyl. Some of the patient's presenting symptoms today could be consistent with gastritis. Time: 17:23 Reevaluation #3: Patient had reemergence of the pain again here in the emergency department. Her EKG and rhythm strip appears to be stable. Patient is have detailed evaluation completed at this time to rule out pulmonary emboli and angina related presentation. Patient does not feel comfortable to go home. She is required multiple doses medication here to control her symptoms. Underlying etiology is undifferentiated this point but there is some consideration for possible panic and anxiety driven presentation. Patient does have risk factors including previous stroke at a younger age. She will be admitted for monitoring and close follow-up. Hospitalist has been paged at this time. Time: 19:00 Additional Reevaluation(s): Patient was accepted by the hospitalist Dr. camargo for evaluation of chest pain and possible anxiety. No other recommendations or concerns at this time. Patient is otherwise clinically stable. Admission process to be completed at this point. Vital Signs Temperature 98.7 F 01/05/19 12:05 Pulse Rate 69 01/05/19 12:05 Respiratory Rate 16 01/05/19 12:05 Blood Pressure 115/64 01/05/19 12:05 O2 Sat by Pulse Oximetry 99 01/05/19 12:05 Temperature 98.7 F 01/05/19 12:05 Pulse Rate 67 01/05/19 19:30 Respiratory Rate 18 01/05/19 19:30 Blood Pressure 128/70 01/05/19 19:30 O2 Sat by Pulse Oximetry 99 01/05/19 19:30 Oxygen Delivery Oxygen Delivery Room Air Chest Pain - [facility] Narrative Medical decision making narrative: Chest pain, left arm pain - Medical Records Medical records reviewed: Yes I reviewed the patient's medical records. - Lab Data Lab results reviewed: Yes I reviewed the patient's lab results. Result diagrams: 01/05/19 12:20 01/05/19 12:20 Lab Results 01/05/19 01/05/19 01/05/19 Range/Units 12:20 12:20 12:20 WBC (4.3-11.1) K/mcL RBC (3.82-4.97) M/mcL Hgb (11.5-15.4) g/dL Hct (35.3-44.9) % MCV (83.0-100.0) fL MCH (28.0-33.3) pg MCHC (31.6-35.5) g/dL RDW (11.5-14.5) % Plt Count (140-400) K/mcL MPV (9.4-12.4) fL Immature Gran % (0-4) % Seg Neutrophils % % Lymphocytes % % Monocytes % % Eosinophils % % Basophils % % Neutrophils # (1.6-8.9) K/mcL Lymphocytes # (0.6-4.6) K/mcL Monocytes # (0.0-1.3) K/mcL Eosinophils # (0.0-0.6) K/mcL Basophils # (0.0-0.2) K/mcL PT 11.5 (9.4-12.1) Seconds INR 1.0 APTT 32.4 (26.0-36.0) Seconds D-Dimer 395 (0-500) ng/mLFEU Sodium (136-145) mEq/L Potassium (3.5-5.1) mEq/L Chloride (98-107) mEq/L Carbon Dioxide (23-29) mEq/L BUN (6-20) mg/dL Creatinine (0.60-1.20) mg/dL Est GFR ( Amer) (> 60) Est GFR (Non-Af Amer) (> 60) BUN/Creatinine Ratio (6-26) Glucose (70-105) mg/dL Calculated Osmolality (280-300) Calcium (8.6-10.3) mg/dL Total Bilirubin (0.3-1.0) mg/dL Direct Bilirubin (0.0-0.2) mg/dL Indirect Bilirubin (0.0-1.2) mg/dL AST (13-39) Units/L ALT (7-52) Units/L Alkaline Phosphatase (34-104) Units/L Troponin I (< 0.04) ng/mL B-Natriuretic Peptide (Less than 100) pg/mL Serum Total Protein (6.4-8.9) g/dL Albumin (3.5-5.7) g/dL Globulin (2.4-3.5) g/dL Albumin/Globulin Ratio (1.1-2.2) Lipase (11-82) Units/L TSH (0.340-5.600) mcIU/mL Urine Color Yellow (Yellow) Urine Clarity Cloudy A (Clear) Urine pH 6.0 (5.0-8.0) pH Units Ur Specific [place] 1.024 (1.010-1.025) Urine Protein Negative (Neg-Trace) mg/dL Urine Glucose (UA) Normal (Normal) mg/dL Urine Ketones Negative (Negative) mg/dL Urine Blood Negative (Negative) Urine Nitrite Negative (Negative) Urine Bilirubin Large H (Negative) Urine Urobilinogen Normal (Normal) mg/dL Ur Leukocyte Esterase Small H (Negative) Urine Microscopic RBC 0-3 (0-3) per hpf Urine Microscopic WBC 15-30 H (0-3) per hpf Ur Squamous Epith Cells Many H (None-Few) per lpf Urine Bacteria Moderate H (None-Few) per hpf Ur Culture Indicated? YES A (NO) Urine Test Negative (Negative) 01/05/19 01/05/19 01/05/19 Range/Units 12:20 12:20 12:20 WBC 9.7 (4.3-11.1) K/mcL RBC 5.04 H (3.82-4.97) M/mcL Hgb 14.4 (11.5-15.4) g/dL Hct 43.6 (35.3-44.9) % MCV 86.5 (83.0-100.0) fL MCH 28.6 (28.0-33.3) pg MCHC 33.0 (31.6-35.5) g/dL RDW 12.9 (11.5-14.5) % Plt Count 199 (140-400) K/mcL MPV 10.3 (9.4-12.4) fL Immature Gran % 0.4 (0-4) % Seg Neutrophils % 60.8 % Lymphocytes % 29.8 % Monocytes % 5.3 % Eosinophils % 3.4 % Basophils % 0.3 % Neutrophils # 5.9 (1.6-8.9) K/mcL Lymphocytes # 2.9 (0.6-4.6) K/mcL Monocytes # 0.5 (0.0-1.3) K/mcL Eosinophils # 0.3 (0.0-0.6) K/mcL Basophils # 0.0 (0.0-0.2) K/mcL PT (9.4-12.1) Seconds INR APTT (26.0-36.0) Seconds D-Dimer (0-500) ng/mLFEU Sodium 135 L (136-145) mEq/L Potassium 3.8 (3.5-5.1) mEq/L Chloride 108 H (98-107) mEq/L Carbon Dioxide 24 (23-29) mEq/L BUN 17 (6-20) mg/dL Creatinine 0.86 (0.60-1.20) mg/dL Est GFR ( Amer) > 60 (> 60) Est GFR (Non-Af Amer) > 60 (> 60) BUN/Creatinine Ratio 20 (6-26) Glucose 98 (70-105) mg/dL Calculated Osmolality 282 (280-300) Calcium 9.2 (8.6-10.3) mg/dL Total Bilirubin (0.3-1.0) mg/dL Direct Bilirubin (0.0-0.2) mg/dL Indirect Bilirubin (0.0-1.2) mg/dL AST (13-39) Units/L ALT (7-52) Units/L Alkaline Phosphatase (34-104) Units/L Troponin I < 0.03 (< 0.04) ng/mL B-Natriuretic Peptide 24 (Less than 100) pg/mL Serum Total Protein (6.4-8.9) g/dL Albumin (3.5-5.7) g/dL Globulin (2.4-3.5) g/dL Albumin/Globulin Ratio (1.1-2.2) Lipase (11-82) Units/L TSH 1.638 (0.340-5.600) mcIU/mL Urine Color (Yellow) Urine Clarity (Clear) Urine pH (5.0-8.0) pH Units Ur Specific [place] (1.010-1.025) Urine Protein (Neg-Trace) mg/dL Urine Glucose (UA) (Normal) mg/dL Urine Ketones (Negative) mg/dL Urine Blood (Negative) Urine Nitrite (Negative) Urine Bilirubin (Negative) Urine Urobilinogen (Normal) mg/dL Ur Leukocyte Esterase (Negative) Urine Microscopic RBC (0-3) per hpf Urine Microscopic WBC (0-3) per hpf Ur Squamous Epith Cells (None-Few) per lpf Urine Bacteria (None-Few) per hpf Ur Culture Indicated? (NO) Urine Test (Negative) 01/05/19 Range/Units 17:41 WBC (4.3-11.1) K/mcL RBC (3.82-4.97) M/mcL Hgb (11.5-15.4) g/dL Hct (35.3-44.9) % MCV (83.0-100.0) fL MCH (28.0-33.3) pg MCHC (31.6-35.5) g/dL RDW (11.5-14.5) % Plt Count (140-400) K/mcL MPV (9.4-12.4) fL Immature Gran % (0-4) % Seg Neutrophils % % Lymphocytes % % Monocytes % % Eosinophils % % Basophils % % Neutrophils # (1.6-8.9) K/mcL Lymphocytes # (0.6-4.6) K/mcL Monocytes # (0.0-1.3) K/mcL Eosinophils # (0.0-0.6) K/mcL Basophils # (0.0-0.2) K/mcL PT (9.4-12.1) Seconds INR APTT (26.0-36.0) Seconds D-Dimer (0-500) ng/mLFEU Sodium (136-145) mEq/L Potassium (3.5-5.1) mEq/L Chloride (98-107) mEq/L Carbon Dioxide (23-29) mEq/L BUN (6-20) mg/dL Creatinine (0.60-1.20) mg/dL Est GFR ( Amer) (> 60) Est GFR (Non-Af Amer) (> 60) BUN/Creatinine Ratio (6-26) Glucose (70-105) mg/dL Calculated Osmolality (280-300) Calcium (8.6-10.3) mg/dL Total Bilirubin 0.5 (0.3-1.0) mg/dL Direct Bilirubin 0.1 (0.0-0.2) mg/dL Indirect Bilirubin 0.4 (0.0-1.2) mg/dL AST 11 L (13-39) Units/L ALT 15 (7-52) Units/L Alkaline Phosphatase 108 H (34-104) Units/L Troponin I (< 0.04) ng/mL B-Natriuretic Peptide (Less than 100) pg/mL Serum Total Protein 6.1 L (6.4-8.9) g/dL Albumin 3.9 (3.5-5.7) g/dL Globulin 2.2 L (2.4-3.5) g/dL Albumin/Globulin Ratio 1.8 (1.1-2.2) Lipase 9 L (11-82) Units/L TSH (0.340-5.600) mcIU/mL Urine Color (Yellow) Urine Clarity (Clear) Urine pH (5.0-8.0) pH Units Ur Specific [place] (1.010-1.025) Urine Protein (Neg-Trace) mg/dL Urine Glucose (UA) (Normal) mg/dL Urine Ketones (Negative) mg/dL Urine Blood (Negative) Urine Nitrite (Negative) Urine Bilirubin (Negative) Urine Urobilinogen (Normal) mg/dL Ur Leukocyte Esterase (Negative) Urine Microscopic RBC (0-3) per hpf Urine Microscopic WBC (0-3) per hpf Ur Squamous Epith Cells (None-Few) per lpf Urine Bacteria (None-Few) per hpf Ur Culture Indicated? (NO) Urine Test (Negative) - Radiology Data Radiology results reviewed: Yes I reviewed the patient's radiology results. Chest x-ray is negative for acute intrathoracic related etiology - EKG Data EKG attestation: Yes I reviewed and interpreted this EKG. EKG results narrative: EKG shows sinus rhythm. Heart rate is 68. VT interval 128. QRS duration of 107. QTC of 440. [place] is normal. No acute signs of ST segment elevation or abnormality. T-wave inversion is noted in lead V3 which is stable in comparison to previous EKG on 07/22/17. T-wave inversion is also noted in lead 3 where previously there is flattening. No other reciprocal changes. No acute signs of myocardial infarction. No acute signs of WPW or Brugada syndrome. Heart Score - Score History: Slightly Suspicious EKG: Non Specific repolarisation Disturbance Age: Less than 45 Risk Factors: 1-2 risk factors Troponin: Less than normal limit HEART Score Total: 2
[2019-01-05 16:47] LABS: Troponin I < 0.03 ng/mL (< 0.04)
[2019-01-05] MEDS ORDERED: GI Cocktail 40 ML EACH PO ONE (17:21)
[2019-01-05 18:11] LABS: Albumin 3.9 g/dL (3.5-5.7); Albumin/Globulin Ratio 1.8 (1.1-2.2); Bilirubin,Direct 0.1 mg/dL (0.0-0.2); Bilirubin,Indirect 0.4 mg/dL (0.0-1.2); Bilirubin,Total 0.5 mg/dL (0.3-1.0); Globulin 2.2 g/dL (2.4-3.5); Total Protein 6.1 g/dL (6.4-8.9)
[2019-01-05 18:50] LABS: Thyroid Stimulating Hormone 1.638 mcIU/mL (0.340-5.600)
[2019-01-05] MEDS ORDERED: *HR* HYDROmorphone (PF) 1 MG/ML SYRINGE IVP ONE (18:56)
[2019-01-05] MEDS ORDERED: cephALEXin 250 MG CAPSULE PO STA (18:59)
[2019-01-05 20:47] LABS: Amphetamine Screen,Urine Negative ng/mL (Cutoff=1000); Barbiturate Screen,Urine Positive ng/mL (Cutoff=200); Benzodiazepines Screen,Urine Positive ng/mL (Cutoff=200); Cannabinoid Screen,Urine Negative ng/mL (Cutoff = 50); Cocaine Screen,Urine Negative ng/mL (Cutoff= 300); Opiate Screen,Urine Positive ng/mL (Cutoff=300); Phencyclidine Screen,Urine Negative ng/mL (Cutoff=25)
[2019-01-05] MEDS ORDERED: Naloxone 0.4 MG/ML INJ IVP PRN (21:17)
[2019-01-05] MEDS ORDERED: Acetaminophen 325 MG TABLET PO PRN (21:17)
[2019-01-05] MEDS ORDERED: *HR* HYDROcodone/Acet 5/325 mg TABLET PO PRN (21:21)
[2019-01-05] MEDS ORDERED: ETODOLAC 500 MG PO PRN (21:22)
[2019-01-05] MEDS ORDERED: Acetaminophen/Butalbital/CaffeineTABLET PO PRN (21:22)
[2019-01-05] MEDS ORDERED: ALPRAZolam 0.5 MG TABLET PO PRN (21:22)
[2019-01-05] MEDS ORDERED: hydrOXYzine pamoate 25 MG CAPSULE PO PRN (21:22)
--- NOTE | 2019-01-05 22:16 | Internal Med History&Physical ---
Date of Encounter: 01/05/19 Time of Encounter: 20:00 Internal Medicine - H&P: HPI Chief complaint: CP Admitted From: Emergency Dept Plans for Post Hospital Care: Home History of present illness: Ms. Kendall is a 33 year old female w/PMH of previous CVA in 2011 w/o residual effects, HLD, hx of migraines, hx of anxiety/bipolar depression/PTSD/schizophrenia, and hx of prior suicide attempt and psychiatric hospitalization presents from the ED w/CC of CP that began this morning at approx 06:30 while she was sleeping. Pt. reports no alleviating or aggravating factors. Associated sx: SOB, nausea, vomiting, diaphoresis, and radiation to her left arm w/numbness and tingling. Pt. describes pain as sharp/stabbing w/pressure in central chest that is constant but waxes and wanes. States she had this same pain when she had her CVA in 2011, but none since until now. Denies recent cardiac w/u or hx. Father of massive [place] @48 yo. Extensive familial hx of CAD/[place]/CVA w/father and paternal grandparents. Patient reports dizziness, intermittent rectal bleeding (reports colonoscopy several years ago w/polyp removal) but denies recent illness, fever, chills, headache, changes in vision, abdominal pain, diarrhea, constipation, numbness, tingling, presyncope, or syncope. Past Med Surg Social Fam HX - Past Medical History Source: patient, old records reviewed Medical history: CVA, hyperlipidemia, migraine Additional medical history: PCOS Psychiatric history: anxiety, bipolar, depression, prior suicide attempt, schizophrenia, previous psychiatric hospitalization - Past Surgical History Surgical History: appendectomy, cholecystectomy, hysterectomy (Partial), orthopedic, other Additional surgical history: Tubal, ablation, nasal surgery x2, T and A. knee surgery - Social History Smoking Status: Former smoker Packs per day: 1/2 PPD - Reports quitting 4 years ago Smokeless Tobacco Status: No Alcohol use: none Drug use: none Current living situation: Home Recent Out of Country Travel Within the Last 8 Weeks: No Exposure or Possible Exposure to Illness During Travel: No - Family History Mother Race: Family Member Ethnicity: Non- Living Status: Still Living Hx Family Psychosocial Disorders: Yes (Depression) Father Race: Family Member Ethnicity: Non- Living Status: Age at : 48 Cause of : Massive [place] Hx Family Cardiac Disorders: Yes ([place], HTN, HLD) Hx Family Endocrine Disorder: Yes (Diabetes) Sister Race: Family Member Ethnicity: Non- Living Status: Still Living Hx Family Cardiac Disorders: Yes (HLD) Hx Family Endocrine Disorder: Yes (DM) Paternal Grandmother Race: Family Member Ethnicity: Non- Living Status: Age at : 78 Cause of : [place] Hx Family Cardiac Disorders: Yes ([place], CVA, HTN) Hx Family Endocrine Disorder: Yes (DM) Hx Family Neurologic Disorders: Yes (CVA) Paternal Grandfather Race: Family Member Ethnicity: Non- Living Status: Age at : 70 Cause of : Aneurysm Hx Family Cardiac Disorders: Yes (Aneurysm) Hx Family Cancer: Yes (Skin) Internal Medicine - H&P: Meds Prazosin HCl [Minipress] 6 mg PO HS 05/05/18 [History] Omeprazole 40 mg PO DAILY 10/13/18 [History] Vistaril 25 mg PO TID PRN 10/13/18 [History] Xanax 0.5 mg PO DAILY PRN 10/13/18 [History] Atorvastatin [Lipitor] 10 mg PO HS 12/29/18 [History] Brexpiprazole [Rexulti] 2 mg PO DAILY 12/29/18 [History] Mobic 4 mg PO DAILY 12/29/18 [History] Topiramate [Trokendi Xr] 25 mg PO BID 12/29/18 [History] Vortioxetine Hydrobromide [Trintellix] 20 mg PO DAILY 12/29/18 [History] Amitriptyline [Elavil] 25 mg PO HS 01/05/19 [History] Butalbital/Aspirin/Caffeine [Fiorinal 50-325-40 mg Capsule] 1 cap PO TID PRN 01/05/19 [History] Cholecalciferol (D-3) [Vitamin D] 3,000 unit PO DAILY 01/05/19 [History] Etodolac [Etodolac ER] 500 mg PO HS PRN 01/05/19 [History] Ropinirole HCl [Requip] 5 mg PO HS 01/05/19 [History] Allergy/AdvReac Type Severity Reaction Status Date / Time chlorhexidine Allergy See Verified 12/29/18 14:38 Comments lurasidone [From Latuda] Allergy See Verified 12/29/18 14:38 Comments orange (food color) AdvReac Hives Verified 12/29/18 14:38 All Systems PM: A 10-system review of systems was performed and is negative for pertinent findings except as documented above in the HPI. - Constitutional Constitutional: as per HPI, no chills, no fever(s), no night sweats - EENT Eyes: as per HPI, no change in vision, no discharge, no pain, no photophobia Ears: as per HPI, no ear discharge, no ear pain, no tinnitus Nose, mouth and throat: as per HPI, no dysphagia, no nasal discharge, no neck pain, no sore throat - Breasts Breasts: as per HPI - Cardiovascular Cardiovascular ROS IM: as per HPI, chest pain, diaphoresis, dyspnea, dyspnea on exertion, lightheadedness, no palpitations, no syncope - Respiratory Respiratory: as per HPI, dyspnea, dyspnea on exertion, no cough, no wheezing, no excessive phlegm production - Gastrointestinal Gastrointestinal: as per HPI, nausea, vomiting, no abdominal pain, no diarrhea, no hematemesis, no hematochezia, no melena - Genitourinary Genitourinary: no change in urinary stream, no dysuria, no flank pain, no hematuria Menstruation: as per HPI, post hysterectomy (Partial) - Musculoskeletal Musculoskeletal ROS IM: as per HPI, no numbness, no tingling - Integumentary Integumentary IM: no rash, no unusual bruising - Neurological Neurological ROS: as per HPI, dizziness, no confusion, no convulsions, no focal weakness, no numbness, no tingling, no tremor(s) - Psychiatric Psychiatric: as per HPI, anxiety, depression, other (PTSD, schizophrenia, prior suicide attempt, previous psychiatric hospitalization) - Endocrine Endocrine IM: as per HPI - Hematologic/Lymphatic Hematologic/Lymphatic: no easy bruising - Allergic/Immunologic Allergic/Immunologic: as per HPI - Constitutional Vitals: Temp Pulse Resp BP Pulse Ox 98.7 F 67 18 135/47 99 01/05/19 12:05 01/05/19 19:30 01/05/19 21:05 01/05/19 21:05 01/05/19 19:30 General appearance: Present: cooperative, mild distress (CP), A&O X 3, morbidly obese, pleasant, answers questions appropriately Exam: Patient examined at bedside in ED. Pt. reports continued CP w/o alleviation from SL nitro. Reports nausea and mild SOB but denies current vomiting or diaphoresis. Pt. also reports intermittent bright blood in stools and states she had polyp removal several years ago during colonoscopy. No other complaints on exam. VS: 98.3F temp, HR 62, RR 16, BP 112/65 (following SL nitro), SpO2 96% on RA. - Head Head exam: Present: atraumatic, normocephalic - Eye Eye exam: Present: PERRL, conjuntiva pink, sclera anicteric Pupils: Present: PERRL - ENT ENT exam: Present: normal exam - Neck Neck exam general surgery: Present: normal inspection, supple, trachea midline. Absent: lymphadenopathy - Respiratory Respiratory exam: Present: CTAB. Absent: accessory muscle use, rales, rhonchi, wheezes - Cardiovascular Cardiovascular exam: Present: RRR, +S1, +S2. Absent: diastolic murmur, gallop, rubs, systolic murmur - GI/Abdominal GI/Abdominal exam: Present: normal bowel sounds, soft, no peritoneal signs. Absent: distended, tenderness - Rectal Rectal exam: Present: deferred - Additional comments: exam deferred. - Extremities Exam Extremities exam: Present: pedal edema, warm, radial pulses palpable and symmetrical. Absent: calf tenderness, cyanotic - Back Exam Back exam: Present: normal inspection - Neurological Exam Neurological exam: Present: alert, CN II-XII intact, oriented X3, no focal deficits. Absent: pronater drift, facial droop, speech deficit - Psychiatric Psychiatric exam: Present: normal affect, normal mood Additional comments: Patient denies any current suicidal ideation or thoughts of harming anyone else. - Skin Skin exam: Present: dry, intact Internal Med - H&P Results - Labs CBC & Chem 7: 01/05/19 12:20 01/05/19 12:20 Labs: Short CBC 01/05/19 Range/Units 12:20 WBC 9.7 (4.3-11.1) K/mcL Hgb 14.4 (11.5-15.4) g/dL Hct 43.6 (35.3-44.9) % Plt Count 199 (140-400) K/mcL Neutrophils # 5.9 (1.6-8.9) K/mcL BMP 01/05/19 12:20 Sodium 135 L Potassium 3.8 Chloride 108 H Carbon Dioxide 24 BUN 17 Creatinine 0.86 Glucose 98 Calcium 9.2 Cardiac Enzymes 01/05/19 01/05/19 Range/Units 12:20 20:30 Troponin I < 0.03 < 0.03 (< 0.04) ng/mL Liver Function 01/05/19 Range/Units 17:41 Total Bilirubin 0.5 (0.3-1.0) mg/dL Direct Bilirubin 0.1 (0.0-0.2) mg/dL AST 11 L (13-39) Units/L ALT 15 (7-52) Units/L Alkaline Phosphatase 108 H (34-104) Units/L Albumin 3.9 (3.5-5.7) g/dL Urine 01/05/19 Range/Units 12:20 Urine Color Yellow (Yellow) Urine Clarity Cloudy A (Clear) Urine pH 6.0 (5.0-8.0) pH Units Ur Specific [place] 1.024 (1.010-1.025) Urine Protein Negative (Neg-Trace) mg/dL Urine Glucose (UA) Normal (Normal) mg/dL - EKG Data EKG shows normal: sinus rhythm - EKG Data Prior EKG available for review: yes EKG comments: 01/05/19 22:37 EKG dated 01/05/19 12:07 shows sinus rhythm with low voltage in precordial leads, RSR' in V1 or V2 (right VCD or RVH), and borderline T abnormalities in anterior leads. EKG dated 01/05/19 12:53 shows same as above. - Impressions ITS Impressions Chest X-Ray 01/05/19 12:02 IMPRESSION: No acute process. D/ / Bora Roth MD / Bora Roth MD Interpreting Provider: Bora Roth MD - Diagnostic Studies Chest x-ray Additional comments: Impressions Chest X-Ray 01/05/19 12:02 IMPRESSION: No acute process. D/ / Bora Roth MD / Bora Roth MD Interpreting Provider: Bora Roth MD - Assessment and Plan (1) Chest pain Current Visit: Yes Status: Acute Assessment and plan: Acute CP that began this morning at approx 06:30 while she was sleeping. Pt. reports no alleviating or aggravating factors. Associated sx: SOB, nausea, vomiting, diaphoresis, and radiation to her left arm w/numbness and tingling. Pt. describes pain as sharp/stabbing w/pressure in central chest that is constant but waxes and wanes. States she had this same pain when she had her CVA in 2011, but none since until now. Denies recent cardiac w/u or hx. Reports no relief from SL nitro. Initial troponin <0.03. Trending. ASA. 80 mg Lipitor once. Morphine 2 mg Q4HR for CP if BP allows. Echocardiogram. Nuclear stress test if troponins remain WNL. Consider Cardiology consult if troponins, Echocardiogram, and/or stress test results abnormal. Pt. is high risk for cardiac event and furt her morbidity based on current presentation of CP at rest, extensive familial hx of CAD and [place] (father at 48 yo of massive [place] as well as grandparents' hx), former smoker, morbid obesity, and risk factors of HLD and previous CVA. Observation. Qualifiers: Chest pain type: other chest pain Qualified Code(s): R07.89 - Other chest pain; R07.8 - Other chest pain (2) Nausea Current Visit: Yes Status: Acute Assessment and plan: Acute nausea accompanying CP sx. IVP Phenergan 12.5 mg every 6 hours when necessary. Continue patient's by mouth Prilosec. (3) Dizziness Current Visit: Yes Status: Acute Assessment and plan: Acute dizziness accompanying CP sx. Falls/safety precautions and up with assist. Bilateral carotid Dopplers d/t pts. CVA hx. (4) Rectal bleeding Current Visit: Yes Status: Acute Assessment and plan: Pt. reports intermittent acute rectal bleeding is bright blood. Reports previous polyp removal during colonoscopy several years ago. Fecal Hemoccult ordered. Monitor output. Consider GI consult if rectal bleeding persists or wo rsens. (5) HLD (hyperlipidemia) Current Visit: Yes Status: Chronic Assessment and plan: Hx of chronic HLD. Lipid panel in a.m. labs. Continue patient's Lipitor. Qualifiers: Hyperlipidemia type: pure hypercholesterolemia Qualified Code(s): E78.00 - Pure hypercholesterolemia, unspecified; E78.0 - Pure hypercholesterolemia (6) Hx of migraines Current Visit: Yes Status: Chronic Assessment and plan: Hx of chronic migraines. Continue pts. Fioricet when necessary. (7) Anxiety and depression Current Visit: Yes Status: Chronic Assessment and plan: Hx of chronic anxiety, bipolar depression, PTSD, and schizophrenia. Continue pts. Psychiatric medications as prescribed. Monitor for any behavioral changes which may suggest SI. (8) Morbid obesity with BMI of 45.0-49.9, adult Current Visit: Yes Status: Chronic Assessment and plan: Hx of morbid obesity. BMI 48.2 currently. Pt. states she is a candidate for gastric bypass surgery and is waiting to be called. Lifestyle and dietary changes encouraged. (9) History of CVA (cerebrovascular accident) Current Visit: Yes Status: Resolved Assessment and plan: Hx of previous CVA in 2011 w/o residual effects. Concern for possible PE given pts. hx, however D-dimer 395 on admission. (10) Hx of suicide attempt Current Visit: Yes Status: Resolved Assessment and plan: Hx of previous suicide attempt. Pt. states she was taking Seroquel and developed seratonin syndrome. States she was going through rough times in her life. Pt. denies any current SI or HI and states she is in a good place now. (11) DVT prophylaxis Current Visit: Yes Status: Acute Assessment and plan: Heparin 5,000 units SQ Q8HR for DVT prophylaxis. Monitor pt. for signs of bleeding. - Summary of Assessment and Plan Summary of Assessment and Plan: Patient presents w/centralized CP radiating to her left arm since 06:30 this morning. CP still present on exam in ED. No alleviating or aggravating factors. Nausea w/mild SOB but no vomiting or diaphoresis on exam. - Time Spent With Patient Total time spent is greater than 50% in coordination of care (as documented) at patient's floor/unit and/or counseling patient: Greater than 35 minutes
[2019-01-05] MEDS: *HR* Heparin 5,000 UNIT/ML VIAL SQ SCH (22:44)
[2019-01-06] MEDS: *HR* Morphine 2 MG/ML SYRINGE IVP PRN ×3 (03:30→17:54)
[2019-01-06 04:04] LABS: Hematocrit 39.8 % (35.3-44.9); Mean Corpuscular HGB Conc 32.7 g/dL (31.6-35.5); Mean Corpuscular Hemoglobin 28.6 pg (28.0-33.3); Mean Corpuscular Volume 87.7 fL (83.0-100.0); Mean Platelet Volume 10.4 fL (9.4-12.4); Platelet Count 180 K/mcL (140-400); Red Blood Count 4.54 M/mcL (3.82-4.97)
[2019-01-06] MEDS: *HR* Promethazine 25 MG/ML VIAL IVP PRN ×2 (04:08→10:59)
[2019-01-06 04:22] LABS: BUN/Creatinine Ratio 18 (6-26); Blood Urea Nitrogen 16 mg/dL (6-20); Calcium 8.4 mg/dL (8.6-10.3); Carbon Dioxide 24 mEq/L (23-29); Chloride 110 mEq/L (98-107); Chol/HDL Ratio 3.2 (0-4.9); Cholesterol 156 mg/dL (< 200); Glucose 82 mg/dL (70-105); HDL Cholesterol 49 mg/dL (40-59); LDL Cholesterol,Calculated 81 mg/dL (0-99); Magnesium 1.9 mg/dL (1.6-2.6); Osmolality,Calculated 290 (280-300); Potassium 3.8 mEq/L (3.5-5.1); Sodium 140 mEq/L (136-145); Triglycerides 132 mg/dL (< 150); eGFR For Non-African Americans > 60 (> 60)
[2019-01-06] MEDS: *HR* Heparin 5,000 UNIT/ML VIAL SQ SCH ×3 (05:39→21:37)
[2019-01-06] MEDS ORDERED: Regadenoson 0.4 MG/5 ML SYRINGE IVP ONE (06:16)
[2019-01-06 07:50] LABS: Estimated Average Glucose 111 mg/dl; Hemoglobin A1C 5.5 %
[2019-01-06] MEDS: Aspirin 81 MG TAB.CHEW PO SCH (10:58)
[2019-01-06] MEDS: Topiramate 25 MG TABLET PO SCH ×2 (10:59→21:37)
[2019-01-06] MEDS: Cholecalciferol (D-3) 1,000 UNIT TABLET PO SCH (10:59)
[2019-01-06] MEDS: (Vortioxetine Hydrobromide [Trintellix] 20 MG) PO SCH (11:00)
[2019-01-06] MEDS: (Brexpiprazole [Rexulti] 2 MG) PO SCH (11:00)
[2019-01-06] MEDS: Nitroglycerin 0.4 MG TAB.SUBL SL PRN ×3 (12:39→12:55)
--- NOTE | 2019-01-06 15:08 | Internal Med Progress Note ---
Hospitalist Progress Note - Encounter Date of Encounter: 01/06/19 Time of Encounter: 11:00 - Subjective Interval History: Ms. Kendall is a 33 y/o F w PMH of previous CVA in 2011 w/o residual effects, HLD, hx of migraines, hx of anxiety/bipolar depression/PTSD/schizophrenia, and hx of prior suicide attempt and psychiatric hospitalization presented to ER with left chest wall pain. She did have significant family history father with massive MS @ 48 y/o. She was admitted in the hospital and placed on residential monitor. Her serial troponin came back as negative. EKG did not show any acute ischemic changes. She did go for 2 days nuclear stress test today. Patient also complain about right ear serous fluid drainage with ear pain and mild hearing problem on Rt side. - Exam Vitals: Temp Pulse Resp BP Pulse Ox 98.1 F 62 16 159/86 99 01/06/19 11:19 01/06/19 11:19 01/06/19 11:19 01/06/19 12:36 01/06/19 11:19 Exam: Gen: Alert, awake, Oriented to time,place and person HEENT: Serous fluid discharge noticed through Rt ear drum. No erythema noticed Chest: Diminished breath sounds B/L, No wheezing, No crackles, No rales Heart: S1S2+ RRR No murmurs Abd: Soft, NT, BS +, No organomegaly Ext: No edema, pulses are palpable, No calf tenderness Neuro : Benign findings Skin: No rash. - Assessment and Plan (1) DVT prophylaxis Current Visit: Yes Status: Acute Assessment and Plan: Heparin 5,000 units SQ Q8HR for DVT prophylaxis. (2) Chest pain Current Visit: Yes Status: Acute Assessment and Plan: So far negative serial trop since pt is high risk for ACS.. Scheduled for stress test.. Does need 2 days due to high BMI Cont ASa, Statin for now (3) HLD (hyperlipidemia) Current Visit: Yes Status: Chronic Assessment and Plan: Hx of chronic HLD. Continue patient's Lipitor. (4) Hx of migraines Current Visit: Yes Status: Chronic Assessment and Plan: Hx of chronic migraines. Continue Fioricet when necessary. (5) History of CVA (cerebrovascular accident) Current Visit: Yes Status: Resolved Assessment and Plan: Hx of previous CVA in 2011 w/o residual effects cont ASA + Statin (6) Anxiety and depression Current Visit: Yes Status: Chronic Assessment and Plan: Resumed all home medications (7) Dizziness Current Visit: Yes Status: Acute Assessment and Plan: Could be due to Rt ear serous drainage consulted ENT for further eval (8) Rectal bleeding Current Visit: Yes Status: Acute Assessment and Plan: No more active bleeding stable Hb Out pt f/u with PCP (9) Morbid obesity with BMI of 45.0-49.9, adult Current Visit: Yes Status: Chronic Assessment and Plan: Hx of morbid obesity. BMI 48.2 currently. Pt. states she is a candidate for gastric bypass surgery and is waiting to be called. Lifestyle and dietary changes encouraged. - Time Spent with Patient Total time spent is greater than 50% in coordination of care (as documented) at patient's floor/unit and/or counseling patient: Internal Medicine: Result - Labs CBC & Chem 7: 01/06/19 03:09 01/06/19 03:09 Labs: Short CBC 01/06/19 Range/Units 03:09 WBC 10.1 (4.3-11.1) K/mcL Hgb 13.0 (11.5-15.4) g/dL Hct 39.8 (35.3-44.9) % Plt Count 180 (140-400) K/mcL BMP 01/05/19 01/06/19 12:20 03:09 Sodium 135 L 140 Potassium 3.8 3.8 Chloride 108 H 110 H Carbon Dioxide 24 24 BUN 17 16 Creatinine 0.86 0.91 Glucose 98 82 Calcium 9.2 8.4 L Cardiac Enzymes 01/05/19 01/05/19 01/06/19 Range/Units 12:20 20:30 03:09 Troponin I < 0.03 < 0.03 < 0.03 (< 0.04) ng/mL 01/06/19 Range/Units 14:12 Troponin I < 0.03 (< 0.04) ng/mL Liver Function 01/05/19 Range/Units 17:41 Total Bilirubin 0.5 (0.3-1.0) mg/dL Direct Bilirubin 0.1 (0.0-0.2) mg/dL AST 11 L (13-39) Units/L ALT 15 (7-52) Units/L Alkaline Phosphatase 108 H (34-104) Units/L Albumin 3.9 (3.5-5.7) g/dL - ABG Interpretation ABG results: PT/INR, D-dimer PT 11.5 Seconds (9.4-12.1) 01/05/19 12:20 395 ng/mLFEU (0-500) 01/05/19 12:20 - Impressions Impressions Echocardiogram 01/06/19 21:11 Impressions: LVEF 60-65%. Normal LV chamber size, wall thickness and function. Normal left ventricular diastolic function. Normal right ventricular structure and function. No evidence of pulmonary hypertension identified. RVSP not well obtained due to poor TR jet. No significant valvular dysfunction. Left Ventricular Wall Motion: Rest Echo Findings All wall segments showed normal motion. Findings: Study Quality * Technically sub-optimal due to body habitus. ECG Findings * Normal sinus rhythm. Left Ventricle * LVEF 60-65%. * Normal LV chamber size, wall thickness and function. * Normal left ventricular diastolic function. Right Ventricle * Normal right ventricular structure and function. Left Atrium * Normal left atrial size. Right Atrium * Normal right atrial size. Aortic Valve * Aortic valve not well visualized. * No aortic regurgitation. * No aortic stenosis. Mitral Valve * Normal mitral valve structure and function. * No mitral regurgitation. * No mitral stenosis. Tricuspid Valve * Normal tricuspid valve structure and function. * Trace tricuspid regurgitation. * No evidence of pulmonary hypertension identified. RVSP not well obtained due to poor TR jet. Pulmonic Valve * Pulmonic valve not well visualized. * No pulmonic regurgitation. Aorta * Normally sized aortic root. Pericardium * The pericardium appears normal. IVC * Normal IVC dimensions and inspiratory collapse. Pulmonary Artery * Grossly, normal visualized portions of the main pulmonary artery. Consult Discharge Plan - Plan Referrals: Arie Renner MD [Primary Care Provider] - 01/12/19 3:00 pm (2) Chest pain Qualifiers: Chest pain type: other chest pain Qualified Code(s): R07.89 - Other chest pain; R07.8 - Other chest pain (3) HLD (hyperlipidemia) Qualifiers: Hyperlipidemia type: pure hypercholesterolemia Qualified Code(s): E78.00 - Pure hypercholesterolemia, unspecified; E78.0 - Pure hypercholesterolemia
[2019-01-06] MEDS ORDERED: Diclofenac Sodium (24 HR) 100 MG TABLET PO PRN (16:00)
--- NOTE | 2019-01-06 16:51 | ENT - Consult Note ---
Date of Encounter: 01/06/19 Time of Encounter: 16:49 Assessment and Plan (1) Otitis media Current Visit: Yes Status: Acute 33 yo with most likely an otitis media that is draining through an intact T- tube. Recommend BILATERAL ciprodex drops (given abn look of L TM with granulation tissue) 5 drops each ear BID for 1 week. Direct patient to lay on side and allow drops to instill for 5 min before flipping over and placing drops on other side. Patient should follow up with her local ENT if drainage does not resolve after she is discharged. Will order ciprodex gtts for her while she is inpatient. ENT will sign off but please call if patient worsens or if you have any other questions. Qualifiers: Otitis media type: other nonsuppurative Chronicity: acute Laterality: bilateral Recurrence: recurrent Qualified Code(s): H65.196 - Other acute nonsuppurative otitis media, recurrent, bilateral History of Present Illness Consult date: 01/06/19 Reason for ENT Consult: other (R otorrhea) History of present illness: 33 yo female w/ h/o chronic sinusitis s/p FESS x2 and ETD s/p PET last several years ago presents with serious fluid draining from her R ear starting this AM. States that she felt pressure relieve followed by significant drainage. +mild HL on the r side. No vertigo, mild otalgia. States that she is followed by an ENT in [place], [place] regularly. Past Med Surg Social Fam HX - Past Medical History Medical history: CVA, hyperlipidemia, migraine Additional medical history: PCOS Psychiatric history: anxiety, bipolar, depression, prior suicide attempt, schizophrenia, previous psychiatric hospitalization - Past Surgical History Surgical History: appendectomy, cholecystectomy, hysterectomy (Partial), orthopedic, other Additional surgical history: Tubal, ablation, nasal surgery x2, T and A. knee surgery - Social History Smoking Status: Former smoker Packs per day: 1/2 PPD - Reports quitting 4 years ago Smokeless Tobacco Status: No Alcohol use: none Drug use: none - Family History Mother Race: Family Member Ethnicity: Non- Living Status: Still Living Hx Family Psychosocial Disorders: Yes (Depression) Sister Race: Family Member Ethnicity: Non- Living Status: Still Living Hx Family Cardiac Disorders: Yes (HLD) Hx Family Endocrine Disorder: Yes (DM) Paternal Grandmother Race: Family Member Ethnicity: Non- Living Status: Age at : 78 Cause of : [place] Hx Family Cardiac Disorders: Yes ([place], CVA, HTN) Hx Family Endocrine Disorder: Yes (DM) Hx Family Neurologic Disorders: Yes (CVA) Paternal Grandfather Race: Family Member Ethnicity: Non- Living Status: Age at : 70 Cause of : Aneurysm Hx Family Cardiac Disorders: Yes (Aneurysm) Hx Family Cancer: Yes (Skin) Father Race: Family Member Ethnicity: Non- Living Status: Age at : 48 Cause of : Massive [place] Hx Family Cardiac Disorders: Yes ([place], HTN, HLD) Hx Family Endocrine Disorder: Yes (Diabetes) Medications and Allergies Prazosin HCl [Minipress] 6 mg PO HS 05/05/18 [History] Omeprazole 40 mg PO DAILY 10/13/18 [History] Vistaril 25 mg PO TID PRN 10/13/18 [History] Xanax 0.5 mg PO DAILY PRN 10/13/18 [History] Atorvastatin [Lipitor] 10 mg PO HS 12/29/18 [History] Brexpiprazole [Rexulti] 2 mg PO DAILY 12/29/18 [History] Mobic 4 mg PO DAILY 12/29/18 [History] Topiramate [Trokendi Xr] 25 mg PO BID 12/29/18 [History] Vortioxetine Hydrobromide [Trintellix] 20 mg PO DAILY 12/29/18 [History] Amitriptyline [Elavil] 25 mg PO HS 01/05/19 [History] Butalbital/Aspirin/Caffeine [Fiorinal 50-325-40 mg Capsule] 1 cap PO TID PRN 01/05/19 [History] Cholecalciferol (D-3) [Vitamin D] 3,000 unit PO DAILY 01/05/19 [History] Etodolac [Etodolac ER] 500 mg PO HS PRN 01/05/19 [History] Ropinirole HCl [Requip] 5 mg PO HS 01/05/19 [History] Allergy/AdvReac Type Severity Reaction Status Date / Time chlorhexidine Allergy See Verified 12/29/18 14:38 Comments lurasidone [From Latuda] Allergy See Verified 12/29/18 14:38 Comments orange (food color) AdvReac Hives Verified 12/29/18 14:38 ENT - ROS - Constitutional Constitutional ROS: no daytime sleepiness, no fever(s), no headache(s), no lethargy, no snoring, no stops breathing during sleep - EENT Nose, mouth and throat: as per HPI, abnormal hearing, no bleeding gums, no change in voice, no dental pain, no disequilibrium, no dizziness, no dry mouth, no dysphagia, no epistaxis, no facial pain, no halitosis, no headache(s), no hoarseness, no lip swelling, no mouth lesions, no mouth pain, no nasal congestion, no nasal discharge, no nasal obstruction, no nasal trauma, no neck mass, no neck pain, no nose pain, no odynophagia, no post-nasal drip, no sinus pain, no sinus pressure, no sore throat, no throat swelling, no tongue swelling, no vertigo - Cardiovascular Cardiovascular ROS IM: no chest pain, no chest pain at rest, no chest pain with activity, no dyspnea, no edema, no irregular heart rhythm, no radiating jaw, neck or arm pain, no lightheadedness, no orthopnea, no paroxysmal nocturnal dyspnea, no syncope - Respiratory no cough, no dyspnea, no hemoptysis, no dyspnea on exertion, no wheezing, no snoring, no stridor, no pain on inspiration, no chest congestion, no excessive phlegm production, no change in phlegm color, no pain with cough - Gastrointestinal Gastrointestinal: no coffee ground emesis, no constipation, no diarrhea, no dyspepsia, no dysphagia, no heartburn, no nausea, no odynophagia, no vomiting - Genitourinary Genitourinary ROS: no difficulty urinating, no dysuria, no urinary frequency, no urinary incontinence, no urinary urgency - Musculoskeletal Musculoskeletal ROS: no abnormal gait, no muscle weakness, no myalgias, no neck pain, no numbness, no stiffness, no tingling - Integumentary Integumentary: no acne, no bleeding lesions, no change in hair, no change in nails, no change in pigmentation, no changing lesions, no erythema, no furuncle, no lesions, no new lesions, no non-healing lesions, no pruritus, no rash, no skin ulcer, no sores - Neurological Neurological ROS: no abnormal gait, no abnormal hearing, no abnormal speech, no disequilibrium, no dizziness, no focal weakness, no frequent falls, no headache (s), no lack of coordination, no numbness, no paresthesias, no restless legs, no syncope, no tingling, no tremor(s), no vertigo, no weakness - Psychiatric Psychiatric general: no abnormal sleep pattern, no anxiety, no auditory hallucinations - Endocrine Endocrine: no cold intolerance, no deeping of the voice, no excessive sweating, no fatigue, no flushing, no heat intolerance, no palpitations, no polydipsia, no polyphagia, no polyuria - Hematologic/Lymphatic no easy bleeding, no easy bruising, no lymphadenopathy - Allergic/Immunologic no tongue swelling, no throat swelling, no itchy eyes, no seasonal rhinorrhea, no uticaria, no wheezing, no GI upset with certain foods, no lip swelling ENT Exam Initial Vital Signs Temp Pulse Resp BP Pulse Ox 98.7 F 69 16 115/64 99 01/05/19 12:05 01/05/19 12:05 01/05/19 12:05 01/05/19 12:05 01/05/19 12:05 - ENT normal pinna, normal nares, normal mucosa, no congestion, atraumatic, normocephalic (L EAC is clear. L TM appears abnormal/thickened. anterior inferior quadrant with small amnt of granulation tissue. This may be in the m iddle ear space and seen through a perf although it is difficult to tell without a microscope. R EAC with thin yellow fluid on floor. Bubbles surround the opening of a green T-tube. Unable to see the TM although the position of the opening of the tube suggests that it is in proper position.), CN 2-12 grossly intact Exam Initial Vital Signs Temp Pulse Resp BP Pulse Ox 98.7 F 69 16 115/64 99 01/05/19 12:05 01/05/19 12:05 01/05/19 12:05 01/05/19 12:05 01/05/19 12:05 Results - Labs 01/06/19 03:09 01/06/19 03:09 Abnormal lab results RBC 5.04 M/mcL (3.82-4.97) H 01/05/19 12:20 Sodium 135 mEq/L (136-145) L 01/05/19 12:20 Chloride 110 mEq/L (98-107) H 01/06/19 03:09 Calcium 8.4 mg/dL (8.6-10.3) L 01/06/19 03:09 AST 11 Units/L (13-39) L 01/05/19 17:41 108 Units/L (34-104) H 01/05/19 17:41 6.1 g/dL (6.4-8.9) L 01/05/19 17:41 2.2 g/dL (2.4-3.5) L 01/05/19 17:41 9 Units/L (11-82) L 01/05/19 17:41 Cloudy (Clear) A 01/05/19 12:20 Large (Negative) H 01/05/19 12:20 Ur Leukocyte Esterase Small (Negative) H 01/05/19 12:20 15-30 per hpf (0-3) H 01/05/19 12:20 Ur Squamous Epith Cells Many per lpf (None-Few) H 01/05/19 12:20 Moderate per hpf (None-Few) H 01/05/19 12:20 Ur Culture Indicated? YES (NO) A 01/05/19 12:20 Positive ng/mL (Sfsryb=143) H 01/05/19 20:23 Ur Barbiturates Screen Positive ng/mL (Nkztie=566) H 01/05/19 20:23 U Benzodiazepines Scrn Positive ng/mL (Acbfyp=165) H 01/05/19 20:23 Diabetes panel 01/05/19 01/06/19 01/06/19 Range/Units 17:41 03:09 03:09 Sodium 140 (136-145) mEq/L Potassium 3.8 (3.5-5.1) mEq/L Chloride 110 H (98-107) mEq/L Carbon Dioxide 24 (23-29) mEq/L BUN 16 (6-20) mg/dL Creatinine 0.91 (0.60-1.20) mg/dL Glucose 82 (70-105) mg/dL Hemoglobin A1c 5.5 ( - 5.6) % Calcium 8.4 L (8.6-10.3) mg/dL AST 11 L (13-39) Units/L ALT 15 (7-52) Units/L Alkaline Phosphatase 108 H (34-104) Units/L Albumin 3.9 (3.5-5.7) g/dL Triglycerides 132 (< 150) mg/dL HDL Cholesterol 49 (40-59) mg/dL Thyroid panel 01/05/19 Range/Units 12:20 TSH 1.638 (0.340-5.600) mcIU/mL Calcium panel 01/05/19 01/06/19 Range/Units 17:41 03:09 Calcium 8.4 L (8.6-10.3) mg/dL Albumin 3.9 (3.5-5.7) g/dL Pituitary panel 01/05/19 01/06/19 Range/Units 12:20 03:09 Sodium 140 (136-145) mEq/L Potassium 3.8 (3.5-5.1) mEq/L Chloride 110 H (98-107) mEq/L Carbon Dioxide 24 (23-29) mEq/L BUN 16 (6-20) mg/dL Creatinine 0.91 (0.60-1.20) mg/dL Glucose 82 (70-105) mg/dL Calcium 8.4 L (8.6-10.3) mg/dL TSH 1.638 (0.340-5.600) mcIU/mL Adrenal panel 01/05/19 01/06/19 Range/Units 17:41 03:09 Sodium 140 (136-145) mEq/L Potassium 3.8 (3.5-5.1) mEq/L Chloride 110 H (98-107) mEq/L Carbon Dioxide 24 (23-29) mEq/L BUN 16 (6-20) mg/dL Creatinine 0.91 (0.60-1.20) mg/dL Glucose 82 (70-105) mg/dL Calcium 8.4 L (8.6-10.3) mg/dL Total Bilirubin 0.5 (0.3-1.0) mg/dL AST 11 L (13-39) Units/L ALT 15 (7-52) Units/L Alkaline Phosphatase 108 H (34-104) Units/L Albumin 3.9 (3.5-5.7) g/dL All other labs normal. Consult Discharge Plan - Plan Referrals: Arie Renner MD [Primary Care Provider] - 01/12/19 3:00 pm
[2019-01-06] MEDS: Ciprofloxacin/Dex *EAR* Susp 7.5 ML BOTTLE BOTH EARS SCH (17:56)
[2019-01-06] MEDS ORDERED: rOPINIRole 1 MG TABLET PO SCH (21:00)
[2019-01-06] MEDS: Ondansetron 4 MG/2 ML VIAL IVP PRN (21:24)
[2019-01-06] MEDS ORDERED: *HR* Promethazine 25 MG/ML VIAL IM ONE (22:23)
[2019-01-06] MEDS ORDERED: *HR* Promethazine 25 MG/ML VIAL IVP ONE (22:23)
[2019-01-06] MEDS ORDERED: *HR* Promethazine 25 MG/ML VIAL ONE (22:26)
[2019-01-07] MEDS: *HR* Morphine 2 MG/ML SYRINGE IVP PRN ×3 (00:30→12:15)
[2019-01-07] MEDS: *HR* Heparin 5,000 UNIT/ML VIAL SQ SCH ×2 (04:45→15:14)
[2019-01-07 06:28] LABS: Hematocrit 41.2 % (35.3-44.9); Hemoglobin 13.7 g/dL (11.5-15.4); Mean Corpuscular HGB Conc 33.3 g/dL (31.6-35.5); Mean Corpuscular Hemoglobin 29.1 pg (28.0-33.3); Mean Corpuscular Volume 87.5 fL (83.0-100.0); Platelet Count 186 K/mcL (140-400); Red Blood Count 4.71 M/mcL (3.82-4.97); Red Cell Distribution Width 12.9 % (11.5-14.5)
[2019-01-07] MEDS ORDERED: *HR* Promethazine 25 MG/ML VIAL IM ONE (06:30)
[2019-01-07 06:44] LABS: BUN/Creatinine Ratio 13 (6-26); Blood Urea Nitrogen 12 mg/dL (6-20); Calcium 8.6 mg/dL (8.6-10.3); Carbon Dioxide 28 mEq/L (23-29); Chloride 107 mEq/L (98-107); Glucose 88 mg/dL (70-105); Osmolality,Calculated 289 (280-300); Potassium 3.7 mEq/L (3.5-5.1); Sodium 140 mEq/L (136-145); eGFR For Non-African Americans > 60 (> 60)
[2019-01-07] MEDS ORDERED: *HR* Promethazine 25 MG/ML VIAL IVP ONE (07:43)
[2019-01-07] MEDS: Topiramate 25 MG TABLET PO SCH (08:16)
[2019-01-07] MEDS: Cholecalciferol (D-3) 1,000 UNIT TABLET PO SCH (08:16)
[2019-01-07] MEDS: Aspirin 81 MG TAB.CHEW PO SCH (08:16)
[2019-01-07] MEDS: Ciprofloxacin/Dex *EAR* Susp 7.5 ML BOTTLE BOTH EARS SCH (08:19)
[2019-01-07] MEDS: (Vortioxetine Hydrobromide [Trintellix] 20 MG) PO SCH (08:26)
[2019-01-07] MEDS: (Brexpiprazole [Rexulti] 2 MG) PO SCH (08:26)
[2019-01-07 10:57] VITALS: BP 121/93
--- NOTE | 2019-01-07 11:32 | Electrocardiograph Report ---
[place] [id number] Test Date: 2019-01-06 Pat Name: Kenia Kendall Department: 113 Room: 3B49 Gender: F Production Tech: : 1985 Requested By: Martha Pastor Order Number: [id number] Reading MD: Sumanth Gonzalez Measurements Intervals [place] Rate: 62 P: 35 MT: 132 QRS: -9 QRSD: 116 T: 5 QT: 398 QTc: 403 Interpretive Statements SINUS RHYTHM LOW QRS VOLTAGE IN PRECORDIAL LEADS [QRS DEFLECTION < 1.0 mV IN CHEST LEADS] INCOMPLETE RIGHT BUNDLE BRANCH BLOCK [90+ ms QRS DURATION, TERMINAL R IN V1/V2, 40+ ms S IN I/aVL/V4/V5/V6] Electronically Signed On 01-07-2019 11:30:26 EDT by Sumanth Gonzalez
[2019-01-07] MEDS: Ondansetron 4 MG/2 ML VIAL IVP PRN (12:20)
--- NOTE | 2019-01-07 13:58 | Discharge Summary ---
- NOTES TO OUTPATIENT PROVIDER Notes to Outpatient Provider: f/u with PCP in one week. f/u with E.N.T in 2 weeks Orders not resulted at time of discharge: Pending orders 01/05/19 22:25 Fecal Hemoccult [Occult Blood,Stool] [BF] Routine 01/06/19 08:13 NM shyam perf SPECT multi [NM] Routine 01/08/19 04:00 Basic Metabolic Panel AM 0400 Complete Blood Count w/o Diff [HEME] AM 0400 Date of Encounter: 01/07/19 Time of Encounter: 13:55 - Discharge Diagnosis (1) Chest pain Priority: Primary Status: Acute Qualifiers: Chest pain type: other chest pain Qualified Code(s): R07.89 - Other chest pain; R07.8 - Other chest pain (2) Otitis media Priority: Secondary Status: Acute Qualifiers: Otitis media type: other nonsuppurative Chronicity: acute Laterality: bilateral Recurrence: recurrent Qualified Code(s): H65.196 - Other acute nonsuppurative otitis media, recurrent, bilateral (3) DVT prophylaxis Priority: Secondary Status: Acute (4) HLD (hyperlipidemia) Priority: Secondary Status: Chronic Qualifiers: Hyperlipidemia type: pure hypercholesterolemia Qualified Code(s): E78.00 - Pure hypercholesterolemia, unspecified; E78.0 - Pure hypercholesterolemia (5) Hx of migraines Priority: Secondary Status: Chronic (6) History of CVA (cerebrovascular accident) Priority: Secondary Status: Resolved (7) Anxiety and depression Priority: Secondary Status: Chronic (8) Dizziness Priority: Secondary Status: Acute (9) Rectal bleeding Priority: Secondary Status: Acute (10) Morbid obesity with BMI of 45.0-49.9, adult Priority: Secondary Status: Chronic Hospital course: Ms. Kendall is a 33 y/o F w PMH of previous CVA in 2011 w/o residual effects, HLD, hx of migraines, hx of anxiety/bipolar depression/PTSD/schizophrenia, and hx of prior suicide attempt and psychiatric hospitalization presented to ER with left chest wall pain. She did have significant family history father with massive KS @ 48 y/o. She was admitted in the hospital and placed on radiation monitor. Her serial troponin came back as negative. EKG did not show any acute ischemic changes. She did go for 2 days nuclear stress test which came back as negative for ischemia/infarction. Her chest pain seems to be atypical and musculoskeletal related. Patient also complained about right ear serous fluid drainage with ear pain and mild hearing problem on Rt side. Pt was evaluated by ENT who recommend to place her on Cipro 5 drops BID in both ears x 7 days. She also c/o rectal bleeding prior to hospitalization. Her HB stayed stable @ 13.7, so recommend to f.u with her surgeon / GI at [facility]. - Time Spent with Patient Total time spent providing and/or coordinating discharge services: - Discharge Medications Prescriptions: New Ciprofloxacin HCl/Dexameth [Ciprodex Otic Suspension] 5 drop OT BID #1 drops.susp Aspirin Enteric Coated [Aspirin EC] 81 mg PO DAILY #30 tablet.dr Continued Prazosin HCl [Minipress] 6 mg PO HS ALPRAZolam [Xanax 0.5 MG Tablet] 0.5 mg PO DAILY PRN PRN Reason: Anxiety hydrOXYzine pamoate [HydrOXYzine Pamoate] 25 mg PO TID PRN PRN Reason: Anxiety Omeprazole [PriLOSEC] 40 mg PO DAILY PRN PRN Reason: Indigestion Atorvastatin [Lipitor] 10 mg PO HS Vortioxetine Hydrobromide [Trintellix] 20 mg PO DAILY Meloxicam [Mobic] 15 mg PO DAILY Brexpiprazole [Rexulti] 2 mg PO DAILY Ropinirole HCl [Requip] 5 mg PO HS Butalbital/Aspirin/Caffeine [Fiorinal 50-325-40 mg Capsule] 1 cap PO TID PRN PRN Reason: Headache Amitriptyline [Elavil] 25 mg PO HS Etodolac [Etodolac ER] 500 mg PO HS PRN PRN Reason: Pain Cholecalciferol (D-3) [Vitamin D] 3,000 unit PO DAILY Topiramate 50 mg PO BID Tramadol HCl [Ultram] 50 mg PO BID PRN PRN Reason: Pain Tizanidine HCl 4 mg PO HS Home Medications: Prazosin HCl [Minipress] 6 mg PO HS 05/05/18 [History] ALPRAZolam [Xanax 0.5 MG Tablet] 0.5 mg PO DAILY PRN 10/13/18 [History] Omeprazole [PriLOSEC] 40 mg PO DAILY PRN 10/13/18 [History] hydrOXYzine pamoate [HydrOXYzine Pamoate] 25 mg PO TID PRN 10/13/18 [History] Atorvastatin [Lipitor] 10 mg PO HS 12/29/18 [History] Brexpiprazole [Rexulti] 2 mg PO DAILY 12/29/18 [History] Meloxicam [Mobic] 15 mg PO DAILY 12/29/18 [History] Vortioxetine Hydrobromide [Trintellix] 20 mg PO DAILY 12/29/18 [History] Amitriptyline [Elavil] 25 mg PO HS 01/05/19 [History] Butalbital/Aspirin/Caffeine [Fiorinal 50-325-40 mg Capsule] 1 cap PO TID PRN 01/05/19 [History] Cholecalciferol (D-3) [Vitamin D] 3,000 unit PO DAILY 01/05/19 [History] Etodolac [Etodolac ER] 500 mg PO HS PRN 01/05/19 [History] Ropinirole HCl [Requip] 5 mg PO HS 01/05/19 [History] Tizanidine HCl 4 mg PO HS 01/06/19 [History] Topiramate 50 mg PO BID 01/06/19 [History] Tramadol HCl [Ultram] 50 mg PO BID PRN 01/06/19 [History] Aspirin Enteric Coated [Aspirin EC] 81 mg PO DAILY #30 tablet.dr 01/07/19 [Rx] Ciprofloxacin HCl/Dexameth [Ciprodex Otic Suspension] 5 drop OT BID #1 drops.susp 01/07/19 [Rx] Allergies/Adverse Reactions: Allergy/AdvReac Type Severity Reaction Status Date / Time chlorhexidine Allergy See Verified 12/29/18 14:38 Comments lurasidone [From Latuda] Allergy See Verified 12/29/18 14:38 Comments orange (food color) AdvReac Hives Verified 12/29/18 14:38 Date of admission: 01/05/19 20:41 Primary care physician: Arie Renner MD Consults: 01/05/19 21:20 Consult to Nursing Secretary [CONS] Routine Reason for SW Consult: Please assess patient for possible home needs for post-discharge planning. 01/06/19 11:50 Consult to ENT [CONS] Routine Consulting Provider: ENT Kacy Reason for Consult: Acute Rt ear serous draiange Time Notified: 11:50 Call Completed: Yes - Constitutional Vitals: Temp Pulse Resp BP Pulse Ox 98.6 F 74 19 121/93 96 01/07/19 10:42 01/07/19 10:42 01/07/19 10:42 01/07/19 10:42 01/07/19 10:42 General appearance: Present: cooperative, A&O X 3, morbidly obese, pleasant, answers questions appropriately Exam: Gen: Alert, awake, Oriented to time,place and person HEENT: Serous fluid discharge noticed through Rt ear drum. No erythema noticed Chest: Diminished breath sounds B/L, No wheezing, No crackles, No rales Heart: S1S2+ RRR No murmurs Abd: Soft, NT, BS +, No organomegaly Ext: No edema, pulses are palpable, No calf tenderness Neuro : Benign findings Skin: No rash. - Patient Status Disposition: Home, Self-Care Condition: Good Overall status at discharge: patient is back to baseline - Discharge Instructions Follow Up With: Arie Renner MD [Primary Care Provider] - 01/12/19 3:00 pm Additional Instructions: Direct patient to lay on side and allow drops to instill for 5 min before flipping over and placing drops on other side. - Diet and Activity Diet: low salt diet
[2019-01-07] MEDS: Nitroglycerin 0.4 MG TAB.SUBL SL PRN (14:47)
== END 2019-01-07 15:41 | disposition home or self-care (01) ==
LOC: 3BNU 11:59 → EMEROOARM 11:59 → SUATTDRO 20:41 → 3BNU 21:39
PROVIDERS: ADMIT Internal Medicine; ATTEND Family Medicine

== ENCOUNTER 2019-08-12 17:43 | Observation (INO) ==
[2019-08-12 18:42] LABS: Hematocrit 43.3 % (35.3-44.9); Mean Corpuscular HGB Conc 32.3 g/dL (31.6-35.5); Mean Corpuscular Hemoglobin 27.9 pg (28.0-33.3); Mean Corpuscular Volume 86.3 fL (83.0-100.0); Mean Platelet Volume 10.4 fL (9.4-12.4); Platelet Count 199 K/mcL (140-400); Red Blood Count 5.02 M/mcL (3.82-4.97); Red Cell Distribution Width 13.2 % (11.5-14.5); White Blood Count 10.4 K/mcL (4.3-11.1)
[2019-08-12 18:44] LABS: Bilirubin,Urine Negative (Negative); Blood,Urine Negative (Negative); Clarity,Urine Cloudy (Clear); Color,Urine Yellow (Yellow); Glucose,Urine (UA) Normal (Normal); Ketones,Urine Negative (Negative); Leukocyte Esterase,Urine Negative (Negative); Nitrite,Urine Negative (Negative); Protein,Urine Negative (Neg-Trace); Specific Gravity,Urine 1.018 (1.010-1.025); Urobilinogen,Urine Normal (Normal)
[2019-08-12 18:48] LABS: Bacteria,Urine Few per hpf (None-Few); Hyaline Casts,Urine None Seen per lpf (None-Few); RBC,Urine 0-3 per hpf (0-3); Squamous Epithelial Cell,Urine Many per lpf (None-Few); WBC,Urine 0-3 per hpf (0-3)
[2019-08-12 19:02] LABS: BUN/Creatinine Ratio 9 (6-26); Blood Urea Nitrogen 9 mg/dL (6-20); Calcium 9.4 mg/dL (8.6-10.3); Carbon Dioxide 25 mEq/L (23-29); Chloride 107 mEq/L (98-107); Glucose 90 mg/dL (70-105); Osmolality,Calculated 286 (280-300); Potassium 4.1 mEq/L (3.5-5.1); Sodium 139 mEq/L (136-145); eGFR For African Americans > 60 (> 60); eGFR For Non-African Americans > 60 (> 60)
[2019-08-12] MEDS ORDERED: Aspirin 325 MG TABLET PO ONE (21:57)
[2019-08-12] MEDS ORDERED: Prochlorperazine 10 MG/2 ML VIAL IVP STA (22:33)
[2019-08-12] MEDS ORDERED: Ketorolac 15 MG/ML VIAL IVP ONE (22:33)
[2019-08-12 22:44] LABS: Amphetamine Screen,Urine Negative ng/mL (Cutoff=1000); Barbiturate Screen,Urine Positive ng/mL (Cutoff=200); Benzodiazepines Screen,Urine Negative ng/mL (Cutoff=200); Cannabinoid Screen,Urine Negative ng/mL (Cutoff = 50); Cocaine Screen,Urine Negative ng/mL (Cutoff= 300); Opiate Screen,Urine Positive ng/mL (Cutoff=300); Phencyclidine Screen,Urine Negative ng/mL (Cutoff=25)
[2019-08-13] MEDS ORDERED: NON-FORMULARY MEDICATION 1 EACH EACH (Ropinirole Hcl [Requip] 5 MG) PO SCH (01:30)
[2019-08-13] MEDS ORDERED: Naloxone 0.4 MG/ML INJ IVP PRN (01:30)
[2019-08-13] MEDS: Melatonin 3 MG TABLET PO SCH ×2 (04:02→22:09)
[2019-08-13] MEDS: *HR* HYDROcodone/Acet 5/325 mg TABLET PO PRN ×2 (04:24→15:42)
[2019-08-13] MEDS: rOPINIRole 2 MG, rOPINIRole 3 MG PO SCH ×2 (04:24→22:08)
[2019-08-13] MEDS: Acetaminophen/Butalbital/CaffeineTABLET PO PRN ×2 (04:25→12:12)
[2019-08-13] MEDS: Topiramate 25 MG TABLET PO SCH ×2 (08:17→22:09)
[2019-08-13] MEDS: Aspirin Enteric Coated 81 MG Tablet PO SCH (08:17)
[2019-08-13 10:18] LABS: INR 1.1; Prothrombin Time 12.1 Seconds (9.4-12.1)
[2019-08-13 10:38] LABS: Alanine Aminotransferase 14 Units/L (7-52); Albumin/Globulin Ratio 1.8 (1.1-2.2); Alkaline Phosphatase 104 Units/L (34-104); Aspartate Amino Transferase 11 Units/L (13-39); BUN/Creatinine Ratio 12 (6-26); Bilirubin,Total 0.3 mg/dL (0.3-1.0); Blood Urea Nitrogen 12 mg/dL (6-20); Carbon Dioxide 25 mEq/L (23-29); Chloride 107 mEq/L (98-107); Chol/HDL Ratio 4.1 (0-4.9); Cholesterol 145 mg/dL (< 200); Globulin 2.2 g/dL (2.4-3.5); Glucose 106 mg/dL (70-105); HDL Cholesterol 35 mg/dL (40-59); LDL Cholesterol,Calculated 68 mg/dL (0-99); Osmolality,Calculated 292 (280-300); Potassium 3.5 mEq/L (3.5-5.1); Sodium 141 mEq/L (136-145); Total Protein 6.2 g/dL (6.4-8.9); Triglycerides 211 mg/dL (< 150); Troponin I < 0.03 ng/mL (< 0.04); eGFR For African Americans > 60 (> 60); eGFR For Non-African Americans > 60 (> 60)
[2019-08-13 11:53] LABS: Estimated Average Glucose 117 mg/dl
[2019-08-13] MEDS ORDERED: 0.9 % Sodium Chloride 500 ML IVC SCH (15:30)
[2019-08-13] MEDS: Ondansetron 4 MG/2 ML VIAL IVP PRN (15:43)
[2019-08-13 16:45] LABS: Bilirubin,Urine Negative (Negative); Blood,Urine Negative (Negative); Color,Urine Yellow (Yellow); Glucose,Urine (UA) Normal (Normal); Ketones,Urine Negative (Negative); Leukocyte Esterase,Urine Negative (Negative); Nitrite,Urine Negative (Negative); PH,Urine 6.5 pH Units (5.0-8.0); Protein,Urine Negative (Neg-Trace); Specific Gravity,Urine 1.024 (1.010-1.025); Urobilinogen,Urine Normal (Normal)
[2019-08-13 16:46] LABS: Clarity,Urine Hazy (Clear)
[2019-08-13] MEDS ORDERED: Prochlorperazine 10 MG/2 ML VIAL IVP STA (17:37)
[2019-08-13] MEDS ORDERED: Ketorolac 15 MG/ML VIAL IVP ONE (17:37)
[2019-08-13] MEDS: Pantoprazole 40 MG VIAL IVP SCH (18:36)
[2019-08-13] MEDS: *HR* Promethazine 25 MG/ML VIAL IVP PRN (21:04)
[2019-08-13] MEDS: Lithium Carbonate ER 450 MG TABLET.ER PO SCH (22:07)
[2019-08-13] MEDS: LOXAPINE 10 MG PO SCH (22:08)
[2019-08-13] MEDS: tiZANidine 4 MG TABLET PO SCH (22:09)
[2019-08-14 01:28] LABS: BUN/Creatinine Ratio 12 (6-26); Blood Urea Nitrogen 12 mg/dL (6-20); Calcium 8.5 mg/dL (8.6-10.3); Carbon Dioxide 26 mEq/L (23-29); Chloride 107 mEq/L (98-107); Glucose 96 mg/dL (70-105); Osmolality,Calculated 286 (280-300); Potassium 3.8 mEq/L (3.5-5.1); Sodium 138 mEq/L (136-145); eGFR For African Americans > 60 (> 60); eGFR For Non-African Americans > 60 (> 60)
[2019-08-14] MEDS: Ondansetron 4 MG/2 ML VIAL IVP PRN ×2 (02:34→14:46)
[2019-08-14] MEDS: Aspirin Enteric Coated 81 MG Tablet PO SCH (08:52)
[2019-08-14] MEDS: Topiramate 25 MG TABLET PO SCH ×2 (08:52→21:08)
[2019-08-14] MEDS: Pantoprazole 40 MG VIAL IVP SCH (08:52)
[2019-08-14] MEDS: *HR* Promethazine 25 MG/ML VIAL IVP PRN ×2 (08:52→19:21)
[2019-08-14] MEDS: Acetaminophen/Butalbital/CaffeineTABLET PO PRN (14:45)
[2019-08-14] MEDS ORDERED: Ibuprofen 400 MG TABLET PO PRN (14:47)
[2019-08-14] MEDS: tiZANidine 4 MG TABLET PO SCH (21:07)
[2019-08-14] MEDS: Melatonin 3 MG TABLET PO SCH (21:07)
[2019-08-14] MEDS: LOXAPINE 10 MG PO SCH (21:08)
[2019-08-14] MEDS: rOPINIRole 2 MG, rOPINIRole 3 MG PO SCH (21:08)
[2019-08-14] MEDS: Lithium Carbonate ER 450 MG TABLET.ER PO SCH (21:08)
[2019-08-15] MEDS ORDERED: Ketorolac 15 MG/ML VIAL IVP ONE (02:06)
[2019-08-15] MEDS: *HR* Promethazine 25 MG/ML VIAL IVP PRN (02:52)
[2019-08-15 06:45] VITALS: BP 112/57
[2019-08-15] MEDS: Aspirin Enteric Coated 81 MG Tablet PO SCH (08:34)
[2019-08-15] MEDS: Ondansetron 4 MG/2 ML VIAL IVP PRN (08:35)
[2019-08-15] MEDS: Pantoprazole 40 MG VIAL IVP SCH (08:35)
[2019-08-15] MEDS: Topiramate 25 MG TABLET PO SCH (08:35)
== END 2019-08-15 11:40 | disposition home health service (06) ==
LOC: 3BNU 17:43 → EMEROOARM 17:43 → SUATTDRO 22:15 → 3BNU 23:11
PROVIDERS: ADMIT Family Medicine; ATTEND Internal Medicine

== ENCOUNTER 2019-10-26 20:21 | Inpatient (IN) ==
[2019-10-26 22:11] LABS: Basophils % 0.3 %; Eosinophils # 0.2 K/mcL (0.0-0.6); Eosinophils % 2.2 %; Hematocrit 41.8 % (35.3-44.9); Hemoglobin 13.3 g/dL (11.5-15.4); Immature Granulocytes % 0.2 % (0-4); Lymphocytes # 2.4 K/mcL (0.6-4.6); Lymphocytes % 25.1 %; Mean Corpuscular HGB Conc 31.8 g/dL (31.6-35.5); Mean Corpuscular Hemoglobin 27.4 pg (28.0-33.3); Mean Platelet Volume 9.9 fL (9.4-12.4); Monocytes # 0.4 K/mcL (0.0-1.3); Monocytes % 4.6 %; Neutrophils # 6.5 K/mcL (1.6-8.9); Platelet Count 199 K/mcL (140-400); Red Blood Count 4.86 M/mcL (3.82-4.97); Red Cell Distribution Width 13.5 % (11.5-14.5); Segmented Neutrophils % 67.6 %; White Blood Count 9.6 K/mcL (4.3-11.1)
[2019-10-26 22:26] LABS: Alanine Aminotransferase 27 Units/L (7-52); Albumin/Globulin Ratio 1.7 (1.1-2.2); Alkaline Phosphatase 99 Units/L (34-104); Aspartate Amino Transferase 21 Units/L (13-39); BUN/Creatinine Ratio 10 (6-26); Bilirubin,Total 0.4 mg/dL (0.3-1.0); Blood Urea Nitrogen 9 mg/dL (6-20); C-Reactive Protein < 5 mg/L (Less than 10); Calcium 8.9 mg/dL (8.6-10.3); Carbon Dioxide 24 mEq/L (23-29); Chloride 109 mEq/L (98-107); Globulin 2.4 g/dL (2.4-3.5); Glucose 90 mg/dL (70-105); Osmolality,Calculated 286 (280-300); Potassium 3.9 mEq/L (3.5-5.1); Sodium 139 mEq/L (136-145); Total Protein 6.4 g/dL (6.4-8.9); eGFR For African Americans > 60 (> 60); eGFR For Non-African Americans > 60 (> 60)
[2019-10-26] MEDS ORDERED: *HR* OxyCODONE/APAP 5/325 TABLET PO ONE (22:27)
[2019-10-26] MEDS ORDERED: Ondansetron 4 MG/2 ML VIAL IVP ONE (22:27)
[2019-10-26] MEDS ORDERED: Ondansetron ODT 4 MG TAB.RAPDIS SL ONE (23:04)
[2019-10-26 23:19] LABS: Lipase 11 Units/L (11-82)
[2019-10-27] MEDS ORDERED: 0.9 % Sodium Chloride 1,000 ML IV ONE (00:29)
[2019-10-27] MEDS ORDERED: Promethazine 25 MG in 0.9 % Sodium Chloride 50 ML IVPB ONE (00:29)
[2019-10-27] MEDS ORDERED: Isovue-370 500 ML BOTTLE IVP ONE ×2 (00:39→11:52)
[2019-10-27 02:48] LABS: Bilirubin,Urine Negative (Negative); Blood,Urine Negative (Negative); Clarity,Urine Clear (Clear); Color,Urine Yellow (Yellow); Glucose,Urine (UA) Normal (Normal); Ketones,Urine Negative (Negative); Leukocyte Esterase,Urine Negative (Negative); Nitrite,Urine Negative (Negative); PH,Urine 6.5 pH Units (5.0-8.0); Protein,Urine Negative (Neg-Trace); Specific Gravity,Urine > 1.030 (1.010-1.025); Urobilinogen,Urine Normal (Normal)
[2019-10-27] MEDS ORDERED: Morphine Sulfate 2 MG/ML SYRINGE IVP ONE (04:03)
[2019-10-27] MEDS ORDERED: *HR* Enoxaparin 150 MG/ML SYRINGE SQ STA (04:17)
[2019-10-27] MEDS ORDERED: Acetaminophen IV 1,000 MG/100 ML INFUS..BTL IVPB ONE ×2 (05:21→23:04)
[2019-10-27] MEDS ORDERED: *HR* Promethazine 25 MG/ML VIAL IVP ONE ×2 (05:22→21:30)
[2019-10-27] MEDS ORDERED: Naloxone 0.4 MG/ML INJ IVP PRN (05:28)
[2019-10-27] MEDS ORDERED: Acetaminophen 325 MG TABLET PO PRN ×2 (13:04→23:30)
[2019-10-27] MEDS: Ondansetron 4 MG/2 ML VIAL IVP PRN (13:18)
[2019-10-27] MEDS: *HR* Heparin 5,000 UNIT/ML VIAL SQ SCH (14:38)
[2019-10-27] MEDS: Acetaminophen/Butalbital/CaffeineTABLET PO PRN (17:30)
[2019-10-27] MEDS ORDERED: SUMAtriptan succinate 50 MG TABLET PO ONE (21:30)
[2019-10-27] MEDS: Topiramate 25 MG TABLET PO SCH (21:56)
[2019-10-28] MEDS: *HR* Heparin 5,000 UNIT/ML VIAL SQ SCH ×4 (00:12→21:32)
[2019-10-28] MEDS ORDERED: *HR* OxyCODONE/APAP 5/325 TABLET PO PRN (01:22)
[2019-10-28] MEDS ORDERED: Ketorolac 30 MG/ML VIAL IVP ONE ×2 (02:55→13:26)
[2019-10-28] MEDS: Lithium Carbonate ER 450 MG TABLET.ER PO SCH ×2 (02:59→21:31)
[2019-10-28] MEDS: (Loxapine Succinate [Loxapine] 10 MG) PO SCH ×2 (02:59→21:31)
[2019-10-28 06:58] LABS: Hemoglobin 12.1 g/dL (11.5-15.4); Mean Corpuscular HGB Conc 32.7 g/dL (31.6-35.5); Mean Corpuscular Hemoglobin 28.1 pg (28.0-33.3); Mean Corpuscular Volume 85.8 fL (83.0-100.0); Mean Platelet Volume 10.3 fL (9.4-12.4); Platelet Count 163 K/mcL (140-400); Red Blood Count 4.31 M/mcL (3.82-4.97); Red Cell Distribution Width 13.2 % (11.5-14.5); White Blood Count 7.6 K/mcL (4.3-11.1)
[2019-10-28 07:08] LABS: BUN/Creatinine Ratio 11 (6-26); Blood Urea Nitrogen 9 mg/dL (6-20); Calcium 8.5 mg/dL (8.6-10.3); Carbon Dioxide 23 mEq/L (23-29); Chloride 107 mEq/L (98-107); Glucose 95 mg/dL (70-105); Osmolality,Calculated 288 (280-300); Potassium 3.4 mEq/L (3.5-5.1); Sodium 140 mEq/L (136-145); eGFR For African Americans > 60 (> 60); eGFR For Non-African Americans > 60 (> 60)
[2019-10-28] MEDS: Topiramate 25 MG TABLET PO SCH ×2 (09:22→21:29)
[2019-10-28] MEDS: Aspirin Enteric Coated 81 MG Tablet PO SCH (09:22)
[2019-10-28] MEDS: Metoprolol XL (24 HR) Succ 25 MG TAB.ER.24H PO SCH (09:23)
[2019-10-28] MEDS: Ondansetron 4 MG/2 ML VIAL IVP PRN ×2 (10:47→18:06)
[2019-10-28] MEDS ORDERED: Metoclopramide 10 MG/2 ML VIAL IVP ONE (13:16)
[2019-10-28] MEDS ORDERED: Gadolinium Contrast Agent (WT Based) IV PRN (13:25)
[2019-10-28] MEDS ORDERED: Ketorolac 30 MG/ML VIAL IM ONE (13:26)
[2019-10-28] MEDS: MethylPREDNISolone 40 MG/ML VIAL IVP SCH (13:54)
[2019-10-28] MEDS ORDERED: Melatonin 3 MG TABLET PO PRN (16:27)
[2019-10-28] MEDS ORDERED: hydrOXYzine pamoate 25 MG CAPSULE PO PRN (16:27)
[2019-10-28] MEDS ORDERED: tiZANidine 4 MG TABLET PO PRN (16:27)
[2019-10-28] MEDS ORDERED: SUMAtriptan succinate 50 MG TABLET PO PRN (16:27)
[2019-10-28] MEDS: Acetaminophen/Butalbital/CaffeineTABLET PO PRN (17:39)
[2019-10-28] MEDS ORDERED: NON-FORMULARY MEDICATION 1 EACH EACH (Ropinirole Hcl [Requip] 5 MG) PO SCH (21:00)
[2019-10-28] MEDS: rOPINIRole 2 MG, rOPINIRole 3 MG PO SCH (21:29)
[2019-10-28] MEDS: Prochlorperazine 10 MG/2 ML VIAL IVP PRN (22:59)
[2019-10-29 04:41] LABS: Hematocrit 39.7 % (35.3-44.9); Hemoglobin 12.8 g/dL (11.5-15.4); Mean Corpuscular HGB Conc 32.2 g/dL (31.6-35.5); Mean Corpuscular Hemoglobin 27.3 pg (28.0-33.3); Mean Corpuscular Volume 84.6 fL (83.0-100.0); Mean Platelet Volume 10.4 fL (9.4-12.4); Platelet Count 207 K/mcL (140-400); Red Blood Count 4.69 M/mcL (3.82-4.97); Red Cell Distribution Width 13.3 % (11.5-14.5); White Blood Count 9.1 K/mcL (4.3-11.1)
[2019-10-29 05:06] LABS: BUN/Creatinine Ratio 11 (6-26); Blood Urea Nitrogen 8 mg/dL (6-20); Calcium 9.1 mg/dL (8.6-10.3); Carbon Dioxide 23 mEq/L (23-29); Chloride 110 mEq/L (98-107); Glucose 100 mg/dL (70-105); Osmolality,Calculated 284 (280-300); Potassium 3.9 mEq/L (3.5-5.1); Sodium 138 mEq/L (136-145); eGFR For African Americans > 60 (> 60); eGFR For Non-African Americans > 60 (> 60)
[2019-10-29] MEDS: *HR* Heparin 5,000 UNIT/ML VIAL SQ SCH ×3 (06:00→21:48)
[2019-10-29] MEDS: Metoprolol XL (24 HR) Succ 25 MG TAB.ER.24H PO SCH (09:14)
[2019-10-29] MEDS: Topiramate 25 MG TABLET PO SCH ×2 (09:14→21:47)
[2019-10-29] MEDS: Aspirin Enteric Coated 81 MG Tablet PO SCH (09:14)
[2019-10-29] MEDS: MethylPREDNISolone 40 MG/ML VIAL IVP SCH (09:14)
[2019-10-29] MEDS: Ondansetron 4 MG/2 ML VIAL IVP PRN ×2 (09:15→15:03)
[2019-10-29] MEDS ORDERED: Valproic Acid INJ 500 MG in 0.9 % Sodium Chloride 100 ML IVPB ONE (09:55)
[2019-10-29] MEDS ORDERED: *HR* Promethazine 25 MG/ML VIAL IVP ONE (10:59)
[2019-10-29] MEDS ORDERED: Acetaminophen IV 1,000 MG/100 ML INFUS..BTL IVPB ONE (17:51)
[2019-10-29] MEDS: rOPINIRole 2 MG, rOPINIRole 3 MG PO SCH (21:47)
[2019-10-29] MEDS: (Loxapine Succinate [Loxapine] 10 MG) PO SCH (21:48)
[2019-10-29] MEDS: Lithium Carbonate ER 450 MG TABLET.ER PO SCH (21:48)
[2019-10-29] MEDS ORDERED: Prochlorperazine 10 MG/2 ML VIAL IVP PRN (22:11)
[2019-10-29] MEDS ORDERED: Ketorolac 30 MG/ML VIAL IVP ONE (22:12)
[2019-10-30] MEDS ORDERED: Acetaminophen IV 1,000 MG/100 ML INFUS..BTL IVPB ONE (02:22)
[2019-10-30] MEDS: *HR* Heparin 5,000 UNIT/ML VIAL SQ SCH ×2 (05:24→14:07)
[2019-10-30 06:46] LABS: Hematocrit 39.1 % (35.3-44.9); Hemoglobin 12.8 g/dL (11.5-15.4); Mean Corpuscular HGB Conc 32.7 g/dL (31.6-35.5); Mean Corpuscular Hemoglobin 27.7 pg (28.0-33.3); Mean Corpuscular Volume 84.6 fL (83.0-100.0); Mean Platelet Volume 10.9 fL (9.4-12.4); Platelet Count 189 K/mcL (140-400); Red Blood Count 4.62 M/mcL (3.82-4.97); Red Cell Distribution Width 13.6 % (11.5-14.5); White Blood Count 12.5 K/mcL (4.3-11.1)
[2019-10-30] MEDS: Metoprolol XL (24 HR) Succ 25 MG TAB.ER.24H PO SCH (07:52)
[2019-10-30] MEDS: Topiramate 25 MG TABLET PO SCH (07:52)
[2019-10-30] MEDS: Aspirin Enteric Coated 81 MG Tablet PO SCH (07:52)
[2019-10-30] MEDS: Prochlorperazine 10 MG/2 ML VIAL IVP PRN (07:54)
[2019-10-30] MEDS: Ondansetron 4 MG/2 ML VIAL IVP PRN (17:20)
[2019-10-30 17:21] VITALS: BP 97/48
== END 2019-10-30 19:01 | disposition left against medical advice (07) ==
LOC: 3BNU 20:21 → EMEROOARM 20:21 → 3BNU 10-27 05:26
PROVIDERS: ADMIT Internal Medicine; ATTEND Nurse Practitioner

== ENCOUNTER 2019-10-31 20:23 | Observation (INO) ==
[2019-10-31] MEDS ORDERED: *HR* Promethazine 25 MG/ML VIAL IVP ONE (21:03)
[2019-10-31] MEDS ORDERED: 0.9 % Sodium Chloride 1,000 ML IVC ONE (21:03)
[2019-10-31] MEDS ORDERED: Ketorolac 15 MG/ML VIAL IVP ONE (21:03)
[2019-10-31 21:18] LABS: Hematocrit 44.1 % (35.3-44.9); Mean Corpuscular HGB Conc 31.7 g/dL (31.6-35.5); Mean Corpuscular Hemoglobin 27.6 pg (28.0-33.3); Mean Platelet Volume 10.1 fL (9.4-12.4); Platelet Count 193 K/mcL (140-400); Red Blood Count 5.07 M/mcL (3.82-4.97); Red Cell Distribution Width 13.4 % (11.5-14.5); Segmented Neutrophils % 76.2 %; White Blood Count 10.9 K/mcL (4.3-11.1)
[2019-10-31 21:19] LABS: Basophils % 0.1 %; Eosinophils # 0.1 K/mcL (0.0-0.6); Immature Granulocytes % 0.4 % (0-4); Lymphocytes # 1.8 K/mcL (0.6-4.6); Lymphocytes % 16.8 %; Monocytes # 0.6 K/mcL (0.0-1.3); Monocytes % 5.5 %; Neutrophils # 8.3 K/mcL (1.6-8.9)
[2019-10-31] MEDS ORDERED: Isovue-370 500 ML BOTTLE IVP ONE (21:39)
[2019-10-31 21:42] LABS: BUN/Creatinine Ratio 18 (6-26); Blood Urea Nitrogen 14 mg/dL (6-20); Calcium 9.3 mg/dL (8.6-10.3); Carbon Dioxide 26 mEq/L (23-29); Chloride 105 mEq/L (98-107); Glucose 93 mg/dL (70-105); Osmolality,Calculated 286 (280-300); Potassium 3.8 mEq/L (3.5-5.1); Sodium 138 mEq/L (136-145); eGFR For African Americans > 60 (> 60); eGFR For Non-African Americans > 60 (> 60)
[2019-10-31] MEDS ORDERED: Caffeine/Sodium Benzoate 500 MG in 0.9 % Sodium Chloride 1,000 ML IV ONE (23:50)
[2019-10-31] MEDS ORDERED: Prochlorperazine 10 MG/2 ML VIAL IVP ONE (23:51)
[2019-11-01] MEDS ORDERED: Naloxone 0.4 MG/ML INJ IVP PRN (02:38)
[2019-11-01] MEDS ORDERED: 0.9 % Sodium Chloride 1,000 ML IVC SCH (03:30)
[2019-11-01 04:51] LABS: Hematocrit 37.3 % (35.3-44.9); Hemoglobin 12.1 g/dL (11.5-15.4); Mean Corpuscular HGB Conc 32.4 g/dL (31.6-35.5); Mean Corpuscular Hemoglobin 27.7 pg (28.0-33.3); Mean Corpuscular Volume 85.4 fL (83.0-100.0); Mean Platelet Volume 10.5 fL (9.4-12.4); Platelet Count 191 K/mcL (140-400); Red Blood Count 4.37 M/mcL (3.82-4.97); Red Cell Distribution Width 13.3 % (11.5-14.5)
[2019-11-01 05:07] LABS: BUN/Creatinine Ratio 14 (6-26); Blood Urea Nitrogen 12 mg/dL (6-20); Calcium 8.4 mg/dL (8.6-10.3); Carbon Dioxide 21 mEq/L (23-29); Chloride 109 mEq/L (98-107); Glucose 111 mg/dL (70-105); Osmolality,Calculated 288 (280-300); Potassium 3.5 mEq/L (3.5-5.1); Sodium 139 mEq/L (136-145); eGFR For African Americans > 60 (> 60); eGFR For Non-African Americans > 60 (> 60)
[2019-11-01] MEDS ORDERED: tiZANidine 4 MG TABLET PO PRN (05:07)
[2019-11-01] MEDS ORDERED: Bismuth Subsalicylate 120 ML ORAL SUSPENSION PO PRN (05:07)
[2019-11-01] MEDS: *HR* Promethazine 25 MG/ML VIAL IVP PRN ×2 (05:42→13:29)
[2019-11-01] MEDS: Topiramate 25 MG TABLET PO SCH ×2 (08:46→21:03)
[2019-11-01] MEDS ORDERED: SUMAtriptan succinate 50 MG TABLET PO PRN (09:00)
[2019-11-01] MEDS ORDERED: Isovue-370 500 ML BOTTLE IVP ONE (11:48)
[2019-11-01] MEDS ORDERED: Prochlorperazine 10 MG/2 ML VIAL IVP PRN (13:31)
[2019-11-01] MEDS ORDERED: Ketorolac 15 MG/ML VIAL IVP ONE (13:31)
[2019-11-01] MEDS ORDERED: Valproic Acid INJ 500 MG in 0.9 % Sodium Chloride 100 ML IVPB ONE (13:32)
[2019-11-01 15:47] LABS: Adenovirus F 40/41 PCR Not detected (Not detect); Astrovirus PCR Not detected (Not detect); C.difficile Toxin A/B Gene PCR Not detected (Not detect); Campylobacter by PCR Not detected (Not detect); Cryptosporidium by PCR Not detected (Not detect); Cyclospora cayetanensis PCR Not detected (Not detect); E. coli O157 by PCR Not detected (Not detect); Entamoeba histolytica PCR Not detected (Not detect); Enteroaggregative E.coli(EAEC) Not detected (Not detect); Enteropathogenic E.coli(EPEC) Not detected (Not detect); Enterotoxigenic E.coli (ETEC) Not detected (Not detect); Giardia lamblia PCR Not detected (Not detect); Norovirus GI/GII PCR Not detected (Not detect); Plesiomonas shigelloides PCR Not detected (Not detect); Rotavirus A PCR Not detected (Not detect); Salmonella PCR Not detected (Not detect); Sapovirus PCR Not detected (Not detect); Shig/EnteroinvasiveE coli EIEC Not detected (Not detect); Shigalike tox-prod E coli STEC Not detected (Not detect); Vibrio PCR Not detected (Not detect); Vibrio cholerae PCR Not detected (Not detect); Yersinia enterocolitica PCR Not detected (Not detect)
[2019-11-01] MEDS: Melatonin 3 MG TABLET PO SCH (21:03)
[2019-11-01] MEDS: Lithium Carbonate ER 450 MG TABLET.ER PO SCH (21:03)
[2019-11-01] MEDS: Metoprolol XL (24 HR) Succ 25 MG TAB.ER.24H PO SCH (21:03)
[2019-11-01] MEDS: Aspirin Enteric Coated 81 MG Tablet PO SCH (21:04)
[2019-11-01] MEDS: rOPINIRole 1 MG TABLET PO SCH (21:04)
[2019-11-01] MEDS: (Loxapine Succinate [Loxapine] 10 MG) PO SCH (21:22)
[2019-11-02] MEDS: *HR* Promethazine 25 MG/ML VIAL IVP PRN ×3 (09:31→21:53)
[2019-11-02] MEDS: Topiramate 25 MG TABLET PO SCH ×2 (09:31→21:54)
[2019-11-02] MEDS ORDERED: Ketorolac 30 MG/ML VIAL IVP ONE (09:33)
[2019-11-02] MEDS ORDERED: Acetaminophen/Butalbital/CaffeineTABLET PO PRN (14:45)
[2019-11-02] MEDS: Ondansetron 4 MG/2 ML VIAL IVP PRN (18:36)
[2019-11-02] MEDS: rOPINIRole 1 MG TABLET PO SCH (21:53)
[2019-11-02] MEDS: Aspirin Enteric Coated 81 MG Tablet PO SCH (21:54)
[2019-11-02] MEDS: Lithium Carbonate ER 450 MG TABLET.ER PO SCH (21:54)
[2019-11-02] MEDS: Melatonin 3 MG TABLET PO SCH (21:55)
[2019-11-02] MEDS: Metoprolol XL (24 HR) Succ 25 MG TAB.ER.24H PO SCH (21:55)
[2019-11-02] MEDS: (Loxapine Succinate [Loxapine] 10 MG) PO SCH (21:56)
[2019-11-03] MEDS: Topiramate 25 MG TABLET PO SCH (07:29)
[2019-11-03] MEDS: Ondansetron 4 MG/2 ML VIAL IVP PRN ×2 (09:47→17:47)
[2019-11-03] MEDS: *HR* Promethazine 25 MG/ML VIAL IVP PRN (11:34)
[2019-11-03 14:10] VITALS: BP 113/75
[2019-11-03 16:36] LABS: Red Blood Cell,CSF < 0.002 M/mcL
[2019-11-03 16:37] LABS: Appearance,CSF Clear (Clear)
[2019-11-03 16:48] LABS: Total Protein,CSF < 4 mg/dL (15-45)
[2019-11-14] MEDS ORDERED: GALCANEZUMAB GNLM SQ SCH (09:00)
== END 2019-11-03 18:14 | disposition short-term general hospital (02) ==
LOC: 3ANU 20:23 → EMEROOARM 20:23 → SUATTDRO 11-01 01:55 → 3ANU 11-01 02:32
PROVIDERS: ADMIT Student in an Organized Health Care Education/Training Program; ATTEND Internal Medicine

== ENCOUNTER 2019-11-25 03:17 | Observation (INO) ==
[2019-11-25 04:13] LABS: Bilirubin,Urine Negative (Negative); Blood,Urine Negative (Negative); Clarity,Urine Cloudy (Clear); Color,Urine Yellow (Yellow); Glucose,Urine (UA) Normal (Normal); Ketones,Urine Negative (Negative); Leukocyte Esterase,Urine Negative (Negative); Nitrite,Urine Negative (Negative); Protein,Urine Negative (Neg-Trace); Specific Gravity,Urine 1.023 (1.010-1.025); Urobilinogen,Urine Normal (Normal)
[2019-11-25 04:15] LABS: Bacteria,Urine None Seen per hpf (None-Few); Hyaline Casts,Urine None Seen per lpf (None-Few); RBC,Urine 0-3 per hpf (0-3); Squamous Epithelial Cell,Urine Many per lpf (None-Few)
[2019-11-25 04:25] LABS: Amphetamine Screen,Urine Negative ng/mL (Cutoff=1000); Barbiturate Screen,Urine Positive ng/mL (Cutoff=200); Benzodiazepines Screen,Urine Negative ng/mL (Cutoff=200); Cannabinoid Screen,Urine Negative ng/mL (Cutoff = 50); Cocaine Screen,Urine Negative ng/mL (Cutoff= 300); Opiate Screen,Urine Negative ng/mL (Cutoff=300); Phencyclidine Screen,Urine Negative ng/mL (Cutoff=25)
[2019-11-25 05:06] LABS: Basophils % 0.3 %; Eosinophils # 0.3 K/mcL (0.0-0.6); Eosinophils % 2.3 %; Hematocrit 38.7 % (35.3-44.9); Hemoglobin 12.6 g/dL (11.5-15.4); Immature Granulocytes % 0.5 % (0-4); Lymphocytes # 2.8 K/mcL (0.6-4.6); Lymphocytes % 25.7 %; Mean Corpuscular HGB Conc 32.6 g/dL (31.6-35.5); Mean Corpuscular Hemoglobin 27.7 pg (28.0-33.3); Mean Corpuscular Volume 85.1 fL (83.0-100.0); Mean Platelet Volume 9.9 fL (9.4-12.4); Monocytes # 0.6 K/mcL (0.0-1.3); Monocytes % 5.1 %; Neutrophils # 7.3 K/mcL (1.6-8.9); Platelet Count 188 K/mcL (140-400); Red Blood Count 4.55 M/mcL (3.82-4.97); Red Cell Distribution Width 13.5 % (11.5-14.5); Segmented Neutrophils % 66.1 %; White Blood Count 11.1 K/mcL (4.3-11.1)
[2019-11-25] MEDS ORDERED: Ondansetron 4 MG/2 ML VIAL IVP ONE (05:09)
[2019-11-25 05:25] LABS: Acetaminophen < 10 mcg/mL (10-20); BUN/Creatinine Ratio 12 (6-26); Blood Urea Nitrogen 11 mg/dL (6-20); Calcium 8.7 mg/dL (8.6-10.3); Carbon Dioxide 24 mEq/L (23-29); Chloride 110 mEq/L (98-107); Ethanol < 10 mg/dL (Less than 10); Glucose 103 mg/dL (70-105); Osmolality,Calculated 284 (280-300); Potassium 3.4 mEq/L (3.5-5.1); Salicylate < 2.5 mg/dL (15.0-30.0); Sodium 137 mEq/L (136-145); eGFR For African Americans > 60 (> 60); eGFR For Non-African Americans > 60 (> 60)
[2019-11-25] MEDS ORDERED: Naloxone 0.4 MG/ML INJ IVP PRN (06:09)
[2019-11-25] MEDS ORDERED: SUMAtriptan succinate 50 MG TABLET PO PRN (06:33)
[2019-11-25] MEDS ORDERED: Bismuth Subsalicylate 262 MG TABLET PO PRN (06:33)
[2019-11-25] MEDS ORDERED: Acetaminophen/Butalbital/CaffeineTABLET PO PRN (06:33)
[2019-11-25] MEDS ORDERED: GALCANEZUMAB GNLM SQ SCH (06:45)
[2019-11-25] MEDS ORDERED: SUMAtriptan 6 MG/0.5 ML SQ ONE (10:45)
[2019-11-25] MEDS: *HR* Heparin 5,000 UNIT/ML VIAL SQ SCH ×2 (14:02→20:48)
[2019-11-25] MEDS ORDERED: Metoclopramide 10 MG/2 ML VIAL IVP ONE (20:19)
[2019-11-25] MEDS ORDERED: Ketorolac 15 MG/ML VIAL IVP ONE (20:19)
[2019-11-25] MEDS ORDERED: NON-FORMULARY MEDICATION 1 EACH EACH (Ropinirole Hcl [Requip] 5 MG) PO SCH (21:00)
[2019-11-25] MEDS ORDERED: rOPINIRole 3 MG, rOPINIRole 2 MG PO SCH (21:00)
[2019-11-25] MEDS ORDERED: Melatonin 3 MG TABLET PO SCH (21:00)
[2019-11-25] MEDS ORDERED: Metoprolol XL (24 HR) Succ 25 MG TAB.ER.24H PO SCH (21:00)
[2019-11-25] MEDS ORDERED: Aspirin Enteric Coated 81 MG Tablet PO SCH (21:00)
[2019-11-25] MEDS ORDERED: Topiramate 100 MG TABLET PO SCH (21:00)
[2019-11-26 05:31] LABS: BUN/Creatinine Ratio 15 (6-26); Blood Urea Nitrogen 12 mg/dL (6-20); Calcium 8.6 mg/dL (8.6-10.3); Carbon Dioxide 23 mEq/L (23-29); Chloride 110 mEq/L (98-107); Glucose 103 mg/dL (70-105); Osmolality,Calculated 290 (280-300); Potassium 3.9 mEq/L (3.5-5.1); Sodium 140 mEq/L (136-145); eGFR For African Americans > 60 (> 60); eGFR For Non-African Americans > 60 (> 60)
[2019-11-26] MEDS: *HR* Heparin 5,000 UNIT/ML VIAL SQ SCH (05:44)
[2019-11-26 06:00] VITALS: BP 110/76
[2019-11-26] MEDS ORDERED: Ketorolac 15 MG/ML VIAL IVP ONE (09:55)
== END 2019-11-26 11:43 ==
LOC: 3BNU 03:17 → EMEROOARM 03:17 → SUATTDRO 05:58 → 3BNU 06:31
PROVIDERS: ADMIT Student in an Organized Health Care Education/Training Program; ATTEND Internal Medicine

== ENCOUNTER 2019-11-26 11:47 | Inpatient (IN) ==
[2019-11-26] MEDS ORDERED: Ibuprofen 400 MG TABLET PO PRN (11:58)
[2019-11-26] MEDS ORDERED: hydrOXYzine pamoate 25 MG CAPSULE PO PRN (11:58)
[2019-11-26] MEDS ORDERED: MOM Conc 10 ML UD.LIQ PO PRN (11:58)
[2019-11-26] MEDS ORDERED: Haloperidol Lactate 5 MG/ML VIAL IM PRN (11:58)
[2019-11-26] MEDS ORDERED: *HR* LORazepam 2 MG/ML VIAL IM PRN (11:58)
[2019-11-26] MEDS ORDERED: *HR* LORazepam 1 MG TABLET PO PRN (11:58)
[2019-11-26] MEDS ORDERED: Mag Hydrox/Al Hydrox/Simeth 30 ML UDC PO PRN (11:58)
[2019-11-26] MEDS ORDERED: traZODone 50 MG TABLET PO PRN (11:58)
[2019-11-26] MEDS ORDERED: haloperidoL 5 MG TABLET PO PRN (11:58)
[2019-11-26] MEDS ORDERED: ASPIRIN PO PRN (20:07)
[2019-11-26] MEDS ORDERED: SUMAtriptan succinate 50 MG TABLET PO PRN (20:07)
[2019-11-26] MEDS ORDERED: CAFFEINE PO PRN (20:07)
[2019-11-26] MEDS ORDERED: Bismuth Subsalicylate 120 ML ORAL SUSPENSION PO PRN (20:07)
[2019-11-26] MEDS ORDERED: BUTALBITAL PO PRN (20:07)
[2019-11-26] MEDS: *HR* OxyCODONE/APAP 7.5/325 TABLET PO PRN (21:41)
[2019-11-26] MEDS: tiZANidine 4 MG TABLET PO PRN (21:42)
[2019-11-26] MEDS: Topiramate 100 MG TABLET PO SCH (21:43)
[2019-11-26] MEDS: rOPINIRole 1 MG TABLET PO SCH (21:43)
[2019-11-26] MEDS: Aspirin Enteric Coated 81 MG Tablet PO SCH (21:44)
[2019-11-26] MEDS: Melatonin 3 MG TABLET PO SCH (21:44)
[2019-11-26] MEDS: Lithium Carbonate ER 450 MG TABLET.ER PO SCH (21:44)
[2019-11-26] MEDS: (Loxapine Succinate [Loxapine] 10 MG) PO SCH (21:46)
[2019-11-26] MEDS: Metoprolol XL (24 HR) Succ 25 MG TAB.ER.24H PO SCH (21:47)
[2019-11-27] MEDS: *HR* OxyCODONE/APAP 7.5/325 TABLET PO PRN ×2 (09:24→21:54)
[2019-11-27] MEDS ORDERED: *HR* Promethazine 25 MG/ML VIAL IM ONE (18:45)
[2019-11-27 19:34] LABS: Basophils % 0.2 %; Eosinophils # 0.4 K/mcL (0.0-0.6); Hematocrit 42.5 % (35.3-44.9); Hemoglobin 12.9 g/dL (11.5-15.4); Immature Granulocytes % 0.4 % (0-4); Lymphocytes # 1.8 K/mcL (0.6-4.6); Lymphocytes % 21.6 %; Mean Corpuscular HGB Conc 30.4 g/dL (31.6-35.5); Mean Corpuscular Hemoglobin 27.6 pg (28.0-33.3); Mean Corpuscular Volume 90.8 fL (83.0-100.0); Mean Platelet Volume 9.9 fL (9.4-12.4); Monocytes # 0.5 K/mcL (0.0-1.3); Monocytes % 5.6 %; Neutrophils # 5.7 K/mcL (1.6-8.9); Platelet Count 146 K/mcL (140-400); Red Blood Count 4.68 M/mcL (3.82-4.97); Red Cell Distribution Width 13.5 % (11.5-14.5); Segmented Neutrophils % 67.2 %; White Blood Count 8.5 K/mcL (4.3-11.1)
[2019-11-27 19:54] LABS: BUN/Creatinine Ratio 11 (6-26); Blood Urea Nitrogen 11 mg/dL (6-20); Calcium 8.8 mg/dL (8.6-10.3); Carbon Dioxide 23 mEq/L (23-29); Chloride 108 mEq/L (98-107); Glucose 102 mg/dL (70-105); Osmolality,Calculated 286 (280-300); Potassium 4.5 mEq/L (3.5-5.1); Sodium 138 mEq/L (136-145); eGFR For African Americans > 60 (> 60); eGFR For Non-African Americans > 60 (> 60)
[2019-11-27 20:04] VITALS: BP 93/59
[2019-11-27] MEDS: rOPINIRole 1 MG TABLET PO SCH (21:53)
[2019-11-27] MEDS: Topiramate 100 MG TABLET PO SCH (21:53)
[2019-11-27] MEDS: Metoprolol XL (24 HR) Succ 25 MG TAB.ER.24H PO SCH (21:53)
[2019-11-27] MEDS: GuaiFENesin/Dextromethorphan TABLET PO SCH ×2 (21:54→22:31)
[2019-11-27] MEDS: Lithium Carbonate ER 450 MG TABLET.ER PO SCH (21:54)
[2019-11-27] MEDS: Aspirin Enteric Coated 81 MG Tablet PO SCH (21:54)
[2019-11-27] MEDS: Melatonin 3 MG TABLET PO SCH (21:54)
[2019-11-27] MEDS: tiZANidine 4 MG TABLET PO PRN (21:54)
[2019-11-27] MEDS: (Loxapine Succinate [Loxapine] 10 MG) PO SCH (21:55)
[2019-11-28] MEDS: GuaiFENesin/Dextromethorphan TABLET PO SCH (08:58)
== END 2019-11-28 11:10 | disposition home or self-care (01) | DRG 817 ==
LOC: 1ANU 11:47
PROVIDERS: ADMIT Psychiatry & Neurology Psychiatry; ATTEND Psychiatry & Neurology Psychiatry

== ENCOUNTER 2020-03-22 14:00 | Inpatient (IN) ==
[2020-03-22] MEDS ORDERED: Isovue-370 500 ML BOTTLE IVP ONE (16:09)
[2020-03-22] MEDS ORDERED: Piperacillin/Tazobactam 3.375 GM in 0.9 % Sodium Chloride Mini Bag 100 ML IVPB ONE (16:09)
[2020-03-22] MEDS ORDERED: 0.9 % Sodium Chloride 1,000 ML IVC ONE (16:09)
[2020-03-22] MEDS ORDERED: Ondansetron 4 MG/2 ML VIAL IVP ONE (16:09)
[2020-03-22] MEDS ORDERED: *HR* FentaNYL (PF) 100 MCG/2 ML VIAL IVP STA (17:10)
[2020-03-22] MEDS ORDERED: Naloxone 0.4 MG/ML INJ IVP PRN (17:28)
[2020-03-22] MEDS ORDERED: SUMAtriptan succinate 50 MG TABLET PO PRN (17:37)
[2020-03-22] MEDS ORDERED: tiZANidine 4 MG TABLET PO PRN (17:37)
[2020-03-22] MEDS ORDERED: Isovue-370 500 ML BOTTLE PO ONE (20:32)
[2020-03-22] MEDS: Aspirin Enteric Coated 81 MG Tablet PO SCH (20:57)
[2020-03-22] MEDS: rOPINIRole 1 MG TABLET PO SCH (20:57)
[2020-03-22] MEDS: Melatonin 3 MG TABLET PO SCH (20:57)
[2020-03-22] MEDS: PRAZOSIN HCL 5 MG PO SCH (20:58)
[2020-03-22] MEDS ORDERED: Lithium Carbonate ER 450 MG TABLET.ER PO SCH (21:00)
[2020-03-22] MEDS ORDERED: *HR* OxyCODONE Immed Rel 5 MG TABLET PO ONE (22:55)
[2020-03-23] MEDS: Ondansetron 4 MG/2 ML VIAL IVP PRN ×2 (01:23→12:55)
[2020-03-23 02:34] LABS: Basophils % 0.1 %; Eosinophils # 0.2 K/mcL (0.0-0.6); Eosinophils % 1.9 %; Hematocrit 39.3 % (35.3-44.9); Hemoglobin 12.4 g/dL (11.5-15.4); Immature Granulocytes % 0.2 % (0-4); Lymphocytes # 2.2 K/mcL (0.6-4.6); Lymphocytes % 23.1 %; Mean Corpuscular HGB Conc 31.6 g/dL (31.6-35.5); Mean Corpuscular Volume 85.4 fL (83.0-100.0); Mean Platelet Volume 10.8 fL (9.4-12.4); Monocytes # 0.6 K/mcL (0.0-1.3); Neutrophils # 6.6 K/mcL (1.6-8.9); Platelet Count 179 K/mcL (140-400); Red Cell Distribution Width 13.4 % (11.5-14.5); Segmented Neutrophils % 68.7 %; White Blood Count 9.5 K/mcL (4.3-11.1)
[2020-03-23 02:47] LABS: BUN/Creatinine Ratio 8 (6-26); Blood Urea Nitrogen 8 mg/dL (6-20); Calcium 8.3 mg/dL (8.6-10.3); Carbon Dioxide 25 mEq/L (23-29); Chloride 107 mEq/L (98-107); Glucose 119 mg/dL (70-105); Osmolality,Calculated 285 (280-300); Sodium 138 mEq/L (136-145); eGFR For African Americans > 60 (> 60); eGFR For Non-African Americans > 60 (> 60)
[2020-03-23] MEDS: *HR* Promethazine 25 MG/ML VIAL IVP PRN ×2 (03:02→18:24)
[2020-03-23] MEDS: Topiramate 100 MG TABLET PO SCH ×2 (08:48→21:46)
[2020-03-23] MEDS: Piperacillin/Tazobactam 3.375 GM in 0.9 % Sodium Chloride Mini Bag 100 ML IVPB SCH ×2 (08:49→15:35)
[2020-03-23] MEDS: *HR* OxyCODONE/APAP 5/325 TABLET PO PRN ×2 (13:09→21:52)
[2020-03-23] MEDS: *HR* Heparin 5,000 UNIT/ML VIAL SQ SCH (18:20)
[2020-03-23] MEDS: PRAZOSIN HCL 5 MG PO SCH (21:45)
[2020-03-23] MEDS: Melatonin 3 MG TABLET PO SCH (21:46)
[2020-03-23] MEDS: Aspirin Enteric Coated 81 MG Tablet PO SCH (21:47)
[2020-03-23] MEDS: Lithium Carbonate ER 450 MG TABLET.ER PO SCH (21:47)
[2020-03-23] MEDS: rOPINIRole 1 MG TABLET PO SCH (21:48)
[2020-03-23] MEDS: Metoprolol XL (24 HR) Succ 25 MG TAB.ER.24H PO SCH (21:49)
[2020-03-24] MEDS: Ondansetron 4 MG/2 ML VIAL IVP PRN (00:40)
[2020-03-24] MEDS: Piperacillin/Tazobactam 3.375 GM in 0.9 % Sodium Chloride Mini Bag 100 ML IVPB SCH ×3 (00:41→17:36)
[2020-03-24] MEDS: *HR* Promethazine 25 MG/ML VIAL IVP PRN ×3 (01:17→22:25)
[2020-03-24 01:44] LABS: Hematocrit 40.8 % (35.3-44.9); Hemoglobin 12.4 g/dL (11.5-15.4); Red Blood Count 4.62 M/mcL (3.82-4.97); White Blood Count 8.2 K/mcL (4.3-11.1)
[2020-03-24 01:45] LABS: Basophils % 0.2 %; Eosinophils # 0.2 K/mcL (0.0-0.6); Eosinophils % 2.4 %; Immature Granulocytes % 0.2 % (0-4); Lymphocytes # 3.2 K/mcL (0.6-4.6); Lymphocytes % 38.5 %; Mean Corpuscular HGB Conc 30.4 g/dL (31.6-35.5); Mean Corpuscular Hemoglobin 26.8 pg (28.0-33.3); Mean Corpuscular Volume 88.3 fL (83.0-100.0); Mean Platelet Volume 11.3 fL (9.4-12.4); Monocytes # 0.4 K/mcL (0.0-1.3); Monocytes % 5.2 %; Neutrophils # 4.4 K/mcL (1.6-8.9); Platelet Count 193 K/mcL (140-400); Red Cell Distribution Width 13.3 % (11.5-14.5); Segmented Neutrophils % 53.5 %
[2020-03-24 02:04] LABS: BUN/Creatinine Ratio 8 (6-26); Blood Urea Nitrogen 8 mg/dL (6-20); Calcium 8.9 mg/dL (8.6-10.3); Carbon Dioxide 24 mEq/L (23-29); Chloride 107 mEq/L (98-107); Glucose 88 mg/dL (70-105); Osmolality,Calculated 286 (280-300); Potassium 3.9 mEq/L (3.5-5.1); Sodium 139 mEq/L (136-145); eGFR For African Americans > 60 (> 60); eGFR For Non-African Americans > 60 (> 60)
[2020-03-24] MEDS: *HR* Heparin 5,000 UNIT/ML VIAL SQ SCH ×2 (06:00→17:02)
[2020-03-24] MEDS: Topiramate 100 MG TABLET PO SCH ×2 (10:46→20:01)
[2020-03-24] MEDS: *HR* OxyCODONE/APAP 5/325 TABLET PO PRN ×2 (10:46→22:25)
[2020-03-24] MEDS ORDERED: *HR* LORazepam 0.5 MG TABLET PO ONE (12:02)
[2020-03-24] MEDS ORDERED: Acetaminophen/Butalbital/CaffeineTABLET PO PRN (16:05)
[2020-03-24] MEDS ORDERED: Metoclopramide 10 MG in 0.9 % Sodium Chloride 50 ML IVPB ONE (17:50)
[2020-03-24] MEDS: PRAZOSIN HCL 5 MG PO SCH (20:00)
[2020-03-24] MEDS: Lithium Carbonate ER 450 MG TABLET.ER PO SCH (20:00)
[2020-03-24] MEDS: rOPINIRole 1 MG TABLET PO SCH (20:00)
[2020-03-24] MEDS: Melatonin 3 MG TABLET PO SCH (20:01)
[2020-03-24] MEDS: Aspirin Enteric Coated 81 MG Tablet PO SCH (20:01)
[2020-03-24] MEDS: Metoprolol XL (24 HR) Succ 25 MG TAB.ER.24H PO SCH (20:01)
[2020-03-25] MEDS: Piperacillin/Tazobactam 3.375 GM in 0.9 % Sodium Chloride Mini Bag 100 ML IVPB SCH ×2 (00:58→08:34)
[2020-03-25] MEDS: *HR* Promethazine 25 MG/ML VIAL IVP PRN (02:48)
[2020-03-25] MEDS: Ondansetron 4 MG/2 ML VIAL IVP PRN (04:16)
[2020-03-25] MEDS: *HR* OxyCODONE/APAP 5/325 TABLET PO PRN ×2 (04:17→10:34)
[2020-03-25] MEDS: *HR* Heparin 5,000 UNIT/ML VIAL SQ SCH (06:28)
[2020-03-25 07:30] VITALS: BP 109/55
[2020-03-25] MEDS: Topiramate 100 MG TABLET PO SCH (08:33)
== END 2020-03-25 11:18 | disposition home or self-care (01) | DRG 254 ==
LOC: EMEROOARM 14:00 → 3ANU 14:00 → SUATTDRO 17:14 → 3ANU 17:52
PROVIDERS: ADMIT Internal Medicine; ATTEND Internal Medicine
PROC: ENDOEBX (2020-03-24 08:50)

== ENCOUNTER 2020-03-29 15:35 | Observation (INO) ==
[2020-03-29] MEDS ORDERED: SUMAtriptan succinate 50 MG TABLET PO PRN (17:09)
[2020-03-29] MEDS ORDERED: Ipratropium/Albuterol Neb 3 ML IH PRN (17:09)
[2020-03-29] MEDS ORDERED: Piperacillin/Tazobactam 3.375 GM in 0.9 % Sodium Chloride Mini Bag 100 ML IVPB SCH (18:00)
[2020-03-29] MEDS ORDERED: NON-FORMULARY MEDICATION 1 EACH EACH (Ropinirole Hcl [Requip] 5 MG) PO SCH (21:00)
[2020-03-29] MEDS ORDERED: rOPINIRole 2 MG, rOPINIRole 3 MG PO SCH (21:00)
[2020-03-29] MEDS ORDERED: Lithium Carbonate ER 450 MG TABLET.ER PO SCH (21:00)
[2020-03-29] MEDS ORDERED: tiZANidine 4 MG TABLET PO SCH (21:00)
[2020-03-29] MEDS ORDERED: Metoprolol XL (24 HR) Succ 25 MG TAB.ER.24H PO SCH (21:00)
[2020-03-29] MEDS: 0.9 % Sodium Chloride 1,000 ML IVC SCH (21:29)
[2020-03-29] MEDS: Acetaminophen IV 1,000 MG/100 ML BAG IVPB SCH (21:30)
[2020-03-29] MEDS ORDERED: PRAZOSIN 5 MG PO SCH (21:45)
[2020-03-29] MEDS: Piperacillin/Tazobactam 3.375 GM in 0.9 % Sodium Chloride Mini Bag 100 ML IVPB SCH (21:59)
[2020-03-29] MEDS: Topiramate 100 MG TABLET PO SCH (22:01)
[2020-03-29] MEDS ORDERED: Ondansetron 4 MG/2 ML VIAL IVP PRN (22:19)
[2020-03-30] MEDS: Acetaminophen IV 1,000 MG/100 ML BAG IVPB SCH ×2 (00:24→05:13)
[2020-03-30] MEDS ORDERED: Metoclopramide 10 MG/2 ML VIAL IVP PRN ×2 (03:50→10:30)
[2020-03-30] MEDS ORDERED: Metoclopramide 10 MG/2 ML VIAL IVP SCH (04:00)
[2020-03-30] MEDS: 0.9 % Sodium Chloride 1,000 ML IVC SCH ×2 (05:09→10:37)
[2020-03-30] MEDS: Piperacillin/Tazobactam 3.375 GM in 0.9 % Sodium Chloride Mini Bag 100 ML IVPB SCH (05:12)
[2020-03-30] MEDS ORDERED: *HR* Propofol 200 MG/20 ML VIAL IVP ONE (07:06)
[2020-03-30] MEDS ORDERED: *HR* FentaNYL (PF) 100 MCG/2 ML VIAL ONE (07:06)
[2020-03-30] MEDS ORDERED: *HR* Midazolam HCl 2 MG/2 ML VIAL ONE (07:06)
[2020-03-30] MEDS ORDERED: Lidocaine HCL 4 ML Topical Solution (Laryng-O-Jet Kit Sterile Pak) TP ONE (07:09)
[2020-03-30] MEDS ORDERED: Lidocaine -MPF 2% 2 ML VIAL ONE (07:09)
[2020-03-30] MEDS ORDERED: Dexamethasone 4 MG/ML VIAL ONE (07:09)
[2020-03-30] MEDS ORDERED: Ondansetron 4 MG/2 ML VIAL ONE (07:09)
[2020-03-30] MEDS ORDERED: *HR* Succinylcholine 200 MG/10 ML VIAL IVP ONE (07:09)
[2020-03-30] MEDS ORDERED: *HR* OxyCODONE Immed Rel 5 MG TABLET PO PRN (07:43)
[2020-03-30] MEDS: *HR* HYDROmorphone PF 0.5 MG/0.5 ML SYRINGE IVP PRN ×3 (09:20→09:53)
[2020-03-30] MEDS ORDERED: Ringers Solution, Lactated 500 ML ONE (09:25)
[2020-03-30] MEDS ORDERED: *HR* HYDROMORPHONE 2 MG/ML VIAL ONE (09:58)
[2020-03-30] MEDS ORDERED: *HR* Promethazine 25 MG/ML VIAL IVP ONE (10:01)
[2020-03-30] MEDS ORDERED: Ondansetron 4 MG/2 ML VIAL IVP PRN (10:30)
[2020-03-30] MEDS ORDERED: Ipratropium/Albuterol Neb 3 ML IH PRN (10:30)
[2020-03-30] MEDS ORDERED: SUMAtriptan succinate 50 MG TABLET PO PRN (10:30)
[2020-03-30] MEDS: Topiramate 100 MG TABLET PO SCH (10:37)
[2020-03-30 11:16] VITALS: BP 132/87
[2020-03-30] MEDS ORDERED: Acetaminophen IV 1,000 MG/100 ML BAG IVPB SCH (12:00)
[2020-03-30] MEDS ORDERED: Metoprolol XL (24 HR) Succ 25 MG TAB.ER.24H PO SCH (21:00)
[2020-03-30] MEDS ORDERED: rOPINIRole 1 MG TABLET PO SCH ×2 (21:00)
[2020-03-30] MEDS ORDERED: Topiramate 100 MG TABLET PO SCH (21:00)
[2020-03-30] MEDS ORDERED: Lithium Carbonate ER 450 MG TABLET.ER PO SCH (21:00)
[2020-03-30] MEDS ORDERED: tiZANidine 4 MG TABLET PO SCH (21:00)
== END 2020-03-30 13:38 | disposition home or self-care (01) ==
LOC: 3ANU
PROVIDERS: ADMIT Surgery; ATTEND Surgery

== ENCOUNTER 2020-04-28 23:15 | Observation (INO) ==
[2020-04-29] MEDS ORDERED: Lidocaine/EPI 1:100k 1% 30 ML VIAL INFILT ONE (00:57)
[2020-04-29] MEDS ORDERED: Sulfamethoxazole/Trimeth DS 1 EACH TABLET PO ONE (00:57)
[2020-04-29] MEDS ORDERED: Ondansetron ODT 4 MG TAB.RAPDIS SL ONE (01:40)
[2020-04-29] MEDS ORDERED: Isovue-370 500 ML BOTTLE IVP ONE (01:54)
[2020-04-29 02:40] LABS: Basophils % 0.1 %; Eosinophils # 0.1 K/mcL (0.0-0.6); Eosinophils % 0.7 %; Hematocrit 43.3 % (35.3-44.9); Hemoglobin 13.7 g/dL (11.5-15.4); Immature Granulocytes % 0.5 % (0-4); Lymphocytes # 2.6 K/mcL (0.6-4.6); Lymphocytes % 18.2 %; Mean Corpuscular HGB Conc 31.6 g/dL (31.6-35.5); Mean Corpuscular Volume 85.4 fL (83.0-100.0); Mean Platelet Volume 10.3 fL (9.4-12.4); Monocytes # 0.8 K/mcL (0.0-1.3); Monocytes % 5.8 %; Neutrophils # 10.7 K/mcL (1.6-8.9); Platelet Count 227 K/mcL (140-400); Red Blood Count 5.07 M/mcL (3.82-4.97); Red Cell Distribution Width 13.3 % (11.5-14.5); Segmented Neutrophils % 74.7 %; White Blood Count 14.4 K/mcL (4.3-11.1)
[2020-04-29 03:00] LABS: Alanine Aminotransferase 18 Units/L (7-52); Albumin 4.1 g/dL (3.5-5.7); Albumin/Globulin Ratio 1.5 (1.1-2.2); Alkaline Phosphatase 109 Units/L (34-104); Aspartate Amino Transferase 12 Units/L (13-39); BUN/Creatinine Ratio 10 (6-26); Bilirubin,Total 0.6 mg/dL (0.3-1.0); Blood Urea Nitrogen 7 mg/dL (6-20); Carbon Dioxide 25 mEq/L (23-29); Chloride 104 mEq/L (98-107); Globulin 2.7 g/dL (2.4-3.5); Glucose 89 mg/dL (70-105); Osmolality,Calculated 287 (280-300); Potassium 3.5 mEq/L (3.5-5.1); Sodium 140 mEq/L (136-145); Total Protein 6.8 g/dL (6.4-8.9); eGFR For African Americans > 60 (> 60); eGFR For Non-African Americans > 60 (> 60)
[2020-04-29] MEDS ORDERED: *HR* HYDROmorphone (PF) 1 MG/ML SYRINGE IVP ONE (05:34)
[2020-04-29] MEDS ORDERED: Piperacillin/Tazobactam 3.375 GM in Water for inj. (sterile) 20 ML IVP ONE (05:53)
[2020-04-29] MEDS ORDERED: *HR* Promethazine 25 MG/ML VIAL IVP PRN (07:04)
[2020-04-29] MEDS ORDERED: Naloxone 0.4 MG/ML INJ IVP PRN (07:04)
[2020-04-29] MEDS ORDERED: SUMAtriptan succinate 50 MG TABLET PO PRN (07:32)
[2020-04-29] MEDS ORDERED: Topiramate 100 MG TABLET PO SCH (09:00)
[2020-04-29] MEDS: 0.9 % Sodium Chloride 1,000 ML IVC SCH ×2 (09:26→21:27)
[2020-04-29] MEDS: *HR* HYDROcodone/Acet 7.5/325 mg TABLET PO PRN ×2 (09:27→21:06)
[2020-04-29] MEDS: Piperacillin/Tazobactam 3.375 GM in 0.9 % Sodium Chloride Mini Bag 100 ML IVPB SCH ×2 (11:37→21:00)
[2020-04-29] MEDS: *HR* Heparin 5,000 UNIT/ML VIAL SQ SCH ×2 (14:42→21:02)
[2020-04-29] MEDS: Ondansetron 4 MG/2 ML VIAL IVP PRN ×2 (15:41→21:06)
[2020-04-29] MEDS ORDERED: Ipratropium/Albuterol Neb 3 ML IH PRN (17:22)
[2020-04-29] MEDS ORDERED: tiZANidine 4 MG TABLET PO SCH (21:00)
[2020-04-29] MEDS ORDERED: Melatonin 3 MG TABLET PO SCH (21:00)
[2020-04-29] MEDS ORDERED: Aspirin 81 MG TAB.CHEW PO SCH (21:00)
[2020-04-29] MEDS ORDERED: rOPINIRole 1 MG TABLET PO SCH (21:00)
[2020-04-29] MEDS ORDERED: Lithium Carbonate ER 450 MG TABLET.ER PO SCH (21:00)
[2020-04-29] MEDS ORDERED: Metoprolol XL (24 HR) Succ 25 MG TAB.ER.24H PO SCH (21:00)
[2020-04-29] MEDS ORDERED: Pregabalin 75 MG CAPSULE PO SCH (21:00)
[2020-04-30] MEDS: *HR* HYDROcodone/Acet 7.5/325 mg TABLET PO PRN ×3 (02:48→21:21)
[2020-04-30] MEDS: Piperacillin/Tazobactam 3.375 GM in 0.9 % Sodium Chloride Mini Bag 100 ML IVPB SCH ×3 (04:33→23:45)
[2020-04-30] MEDS: *HR* Heparin 5,000 UNIT/ML VIAL SQ SCH ×3 (05:35→21:26)
[2020-04-30] MEDS: 0.9 % Sodium Chloride 1,000 ML IVC SCH (05:36)
[2020-04-30] MEDS ORDERED: Ascorbic Acid 500 MG TABLET PO SCH (09:00)
[2020-04-30 09:31] LABS: Basophils % 0.1 %; Eosinophils # 0.2 K/mcL (0.0-0.6); Eosinophils % 3.6 %; Immature Granulocytes % 0.4 % (0-4); Lymphocytes # 2.5 K/mcL (0.6-4.6); Lymphocytes % 37.3 %; Mean Corpuscular HGB Conc 30.5 g/dL (31.6-35.5); Mean Corpuscular Hemoglobin 26.9 pg (28.0-33.3); Mean Corpuscular Volume 88.2 fL (83.0-100.0); Mean Platelet Volume 10.5 fL (9.4-12.4); Monocytes # 0.4 K/mcL (0.0-1.3); Monocytes % 6.4 %; Neutrophils # 3.5 K/mcL (1.6-8.9); Platelet Count 162 K/mcL (140-400); Red Blood Count 4.42 M/mcL (3.82-4.97); Red Cell Distribution Width 13.2 % (11.5-14.5); Segmented Neutrophils % 52.2 %
[2020-04-30] MEDS ORDERED: *HR* Propofol 200 MG/20 ML VIAL IVP ONE (09:53)
[2020-04-30] MEDS ORDERED: *HR* Midazolam HCl 2 MG/2 ML VIAL ONE (09:53)
[2020-04-30] MEDS ORDERED: *HR* FentaNYL (PF) 100 MCG/2 ML VIAL ONE ×2 (09:53→10:46)
[2020-04-30 09:54] LABS: BUN/Creatinine Ratio 8 (6-26); Blood Urea Nitrogen 7 mg/dL (6-20); Calcium 8.5 mg/dL (8.6-10.3); Carbon Dioxide 23 mEq/L (23-29); Chloride 110 mEq/L (98-107); Glucose 98 mg/dL (70-105); Osmolality,Calculated 286 (280-300); Potassium 3.9 mEq/L (3.5-5.1); Sodium 139 mEq/L (136-145); eGFR For African Americans > 60 (> 60); eGFR For Non-African Americans > 60 (> 60)
[2020-04-30 09:55] LABS: Hemoglobin 11.9 g/dL (11.5-15.4); White Blood Count 6.7 K/mcL (4.3-11.1)
[2020-04-30] MEDS ORDERED: Ondansetron 4 MG/2 ML VIAL IVP ONE (09:55)
[2020-04-30] MEDS ORDERED: *HR* HYDROmorphone PF 0.5 MG/0.5 ML SYRINGE IVP PRN (09:55)
[2020-04-30] MEDS ORDERED: *HR* Promethazine 25 MG/ML VIAL IVP PRN ×2 (09:55→12:25)
[2020-04-30] MEDS ORDERED: *HR* Succinylcholine 200 MG/10 ML VIAL IVP ONE (09:56)
[2020-04-30] MEDS ORDERED: Lidocaine -MPF 2% 2 ML VIAL ONE (09:56)
[2020-04-30] MEDS ORDERED: Dexamethasone 4 MG/ML VIAL ONE (09:56)
[2020-04-30] MEDS ORDERED: *HR* Rocuronium Bromide 50 MG/5 ML VIAL ONE ×2 (09:56)
[2020-04-30] MEDS ORDERED: Famotidine 20 MG/2 ML VIAL ONE (09:58)
[2020-04-30] MEDS ORDERED: Acetaminophen IV 1,000 MG/100 ML INFUS..BTL ONE (09:58)
[2020-04-30] MEDS ORDERED: Ringers Solution, Lactated 1,000 ML ONE (11:51)
[2020-04-30] MEDS ORDERED: Ringers Solution, Lactated 1,000 ML IVC SCH (12:00)
[2020-04-30] MEDS ORDERED: Ipratropium/Albuterol Neb 3 ML IH PRN (12:25)
[2020-04-30] MEDS ORDERED: Naloxone 0.4 MG/ML INJ IVP PRN (12:25)
[2020-04-30] MEDS ORDERED: SUMAtriptan succinate 50 MG TABLET PO PRN (12:25)
[2020-04-30] MEDS: Pregabalin 75 MG CAPSULE PO SCH ×2 (15:20→21:22)
[2020-04-30] MEDS ORDERED: tiZANidine 4 MG TABLET PO SCH (21:00)
[2020-04-30] MEDS ORDERED: Metoprolol XL (24 HR) Succ 25 MG TAB.ER.24H PO SCH (21:00)
[2020-04-30] MEDS: rOPINIRole 1 MG TABLET PO SCH (21:17)
[2020-04-30] MEDS: Melatonin 3 MG TABLET PO SCH (21:21)
[2020-04-30] MEDS: Lithium Carbonate ER 450 MG TABLET.ER PO SCH (21:22)
[2020-05-01] MEDS ORDERED: Acetaminophen IV 1,000 MG/100 ML INFUS..BTL IVPB ONE ×2 (00:44→06:04)
[2020-05-01 01:04] LABS: Basophils % 0.1 %; Hematocrit 40.1 % (35.3-44.9); Hemoglobin 12.5 g/dL (11.5-15.4); Immature Granulocytes % 0.4 % (0-4); Lymphocytes # 0.8 K/mcL (0.6-4.6); Lymphocytes % 9.3 %; Mean Corpuscular HGB Conc 31.2 g/dL (31.6-35.5); Mean Corpuscular Volume 86.6 fL (83.0-100.0); Monocytes # 0.3 K/mcL (0.0-1.3); Neutrophils # 7.9 K/mcL (1.6-8.9); Platelet Count 211 K/mcL (140-400); Red Blood Count 4.63 M/mcL (3.82-4.97); Segmented Neutrophils % 87.2 %
[2020-05-01 01:23] LABS: BUN/Creatinine Ratio 7 (6-26); Blood Urea Nitrogen 7 mg/dL (6-20); Calcium 9.4 mg/dL (8.6-10.3); Carbon Dioxide 24 mEq/L (23-29); Chloride 107 mEq/L (98-107); Glucose 183 mg/dL (70-105); Osmolality,Calculated 287 (280-300); Potassium 4.3 mEq/L (3.5-5.1); Sodium 137 mEq/L (136-145); eGFR For African Americans > 60 (> 60); eGFR For Non-African Americans > 60 (> 60)
[2020-05-01] MEDS: Piperacillin/Tazobactam 3.375 GM in 0.9 % Sodium Chloride Mini Bag 100 ML IVPB SCH ×3 (04:35→20:32)
[2020-05-01] MEDS: *HR* HYDROcodone/Acet 7.5/325 mg TABLET PO PRN ×3 (04:35→20:30)
[2020-05-01] MEDS: *HR* Heparin 5,000 UNIT/ML VIAL SQ SCH ×3 (06:53→20:31)
[2020-05-01] MEDS: Ondansetron 4 MG/2 ML VIAL IVP PRN ×2 (08:28→20:30)
[2020-05-01] MEDS: Ascorbic Acid 500 MG TABLET PO SCH (08:29)
[2020-05-01] MEDS: Topiramate 100 MG TABLET PO SCH (08:29)
[2020-05-01] MEDS: Pregabalin 75 MG CAPSULE PO SCH ×3 (08:29→20:33)
[2020-05-01] MEDS: Lithium Carbonate ER 450 MG TABLET.ER PO SCH ×2 (08:30→20:29)
[2020-05-01] MEDS ORDERED: Ketorolac 30 MG/ML VIAL IVP ONE (10:38)
[2020-05-01] MEDS ORDERED: Prochlorperazine 10 MG/2 ML VIAL IVP SCH (10:45)
[2020-05-01] MEDS ORDERED: 0.9 % Sodium Chloride 250 ML IVC ONE (15:23)
[2020-05-01] MEDS ORDERED: 0.9 % Sodium Chloride 1,000 ML IVC ONE (17:27)
[2020-05-01] MEDS ORDERED: Ringers Solution, Lactated 1,000 ML IVC SCH (17:30)
[2020-05-01] MEDS: polyethylene glycoL 3350 17 GM POWD.PACK PO PRN (20:29)
[2020-05-01] MEDS: rOPINIRole 1 MG TABLET PO SCH (20:29)
[2020-05-01] MEDS: Melatonin 3 MG TABLET PO SCH (20:30)
[2020-05-02] MEDS ORDERED: Ketorolac 30 MG/ML VIAL IVP ONE (03:07)
[2020-05-02] MEDS ORDERED: Prochlorperazine 10 MG/2 ML VIAL IVP PRN (03:07)
[2020-05-02 05:51] LABS: Basophils % 0.3 %; Eosinophils # 0.1 K/mcL (0.0-0.6); Eosinophils % 0.8 %; Hematocrit 37.9 % (35.3-44.9); Hemoglobin 11.8 g/dL (11.5-15.4); Immature Granulocytes % 0.3 % (0-4); Lymphocytes # 3.7 K/mcL (0.6-4.6); Lymphocytes % 38.2 %; Mean Corpuscular HGB Conc 31.1 g/dL (31.6-35.5); Mean Corpuscular Volume 86.7 fL (83.0-100.0); Monocytes # 0.6 K/mcL (0.0-1.3); Monocytes % 5.8 %; Neutrophils # 5.3 K/mcL (1.6-8.9); Platelet Count 201 K/mcL (140-400); Red Blood Count 4.37 M/mcL (3.82-4.97); Red Cell Distribution Width 13.2 % (11.5-14.5); Segmented Neutrophils % 54.6 %; White Blood Count 9.8 K/mcL (4.3-11.1)
[2020-05-02 05:52] LABS: BUN/Creatinine Ratio 10 (6-26); Blood Urea Nitrogen 9 mg/dL (6-20); Calcium 8.4 mg/dL (8.6-10.3); Carbon Dioxide 21 mEq/L (23-29); Chloride 112 mEq/L (98-107); Glucose 121 mg/dL (70-105); Magnesium 1.7 mg/dL (1.6-2.6); Osmolality,Calculated 290 (280-300); Sodium 140 mEq/L (136-145); eGFR For African Americans > 60 (> 60); eGFR For Non-African Americans > 60 (> 60)
[2020-05-02] MEDS: *HR* Heparin 5,000 UNIT/ML VIAL SQ SCH (06:35)
[2020-05-02] MEDS: Piperacillin/Tazobactam 3.375 GM in 0.9 % Sodium Chloride Mini Bag 100 ML IVPB SCH (06:36)
[2020-05-02] MEDS: Topiramate 100 MG TABLET PO SCH (09:02)
[2020-05-02] MEDS: Pregabalin 75 MG CAPSULE PO SCH (09:02)
[2020-05-02] MEDS: Ascorbic Acid 500 MG TABLET PO SCH (09:02)
[2020-05-02] MEDS: Lithium Carbonate ER 450 MG TABLET.ER PO SCH (09:02)
[2020-05-02] MEDS: polyethylene glycoL 3350 17 GM POWD.PACK PO PRN (09:02)
[2020-05-02 10:18] VITALS: BP 136/88
== END 2020-05-02 12:43 | disposition home health service (06) ==
LOC: 3ANU 23:15 → EMEROOARM 23:15 → SUATTDRO 04-29 06:55 → 3ANU 04-29 07:55
PROVIDERS: ADMIT Student in an Organized Health Care Education/Training Program; ATTEND Internal Medicine

== ENCOUNTER 2021-05-07 16:14 | Observation (INO) ==
[2021-05-07] MEDS ORDERED: Aspirin 325 MG TABLET PO ONE (16:26)
[2021-05-07 16:57] LABS: Basophils % 0.2 %; Eosinophils # 0.3 K/mcL (0.0-0.6); Hematocrit 45.6 % (35.3-44.9); Hemoglobin 15.1 g/dL (11.5-15.4); Immature Granulocytes % 0.3 % (0-4); Lymphocytes # 3.4 K/mcL (0.6-4.6); Lymphocytes % 21.4 %; Mean Corpuscular HGB Conc 33.1 g/dL (31.6-35.5); Mean Corpuscular Hemoglobin 28.1 pg (28.0-33.3); Mean Corpuscular Volume 84.9 fL (83.0-100.0); Mean Platelet Volume 11.2 fL (9.4-12.4); Monocytes # 0.8 K/mcL (0.0-1.3); Monocytes % 5.1 %; Neutrophils # 11.1 K/mcL (1.6-8.9); Platelet Count 235 K/mcL (140-400); Red Blood Count 5.37 M/mcL (3.82-4.97); Red Cell Distribution Width 13.2 % (11.5-14.5); White Blood Count 15.6 K/mcL (4.3-11.1)
[2021-05-07] MEDS: Nitroglycerin 0.4 MG TAB.SUBL SL PRN ×3 (17:18→17:41)
[2021-05-07 17:22] LABS: BUN/Creatinine Ratio 13 (6-26); Blood Urea Nitrogen 10 mg/dL (6-20); Calcium 9.3 mg/dL (8.6-10.3); Carbon Dioxide 22 mEq/L (23-29); Chloride 104 mEq/L (98-107); Glucose 129 mg/dL (70-105); Osmolality,Calculated 283 (280-300); Potassium 3.8 mEq/L (3.5-5.1); Sodium 136 mEq/L (136-145); Troponin I < 0.03 ng/mL (< 0.04); eGFR For African Americans > 60 (> 60); eGFR For Non-African Americans > 60 (> 60)
[2021-05-07] MEDS ORDERED: Isovue-370 500 ML BOTTLE IVP ONE (17:55)
[2021-05-07] MEDS ORDERED: *HR* OxyCODONE/APAP 5/325 TABLET PO ONE ×2 (18:00→21:19)
[2021-05-07 22:02] VITALS: PULSE 62
[2021-05-07] MEDS ORDERED: Ipratropium/Albuterol Neb 3 ML IH PRN (22:25)
[2021-05-07] MEDS ORDERED: Ondansetron 4 MG/2 ML VIAL IVP PRN (22:29)
[2021-05-07] MEDS ORDERED: Naloxone 0.4 MG/ML INJ IVP PRN (22:29)
[2021-05-07] MEDS ORDERED: Acetaminophen 325 MG TABLET PO PRN (22:29)
[2021-05-07] MEDS ORDERED: Perflutren Lipid Microsphere 1.3 ML in 0.9 % Sodium Chloride 8.7 ML IVP PRN (22:32)
[2021-05-07] MEDS ORDERED: lisinopriL 5 MG TABLET PO SCH (23:00)
[2021-05-07 23:41] VITALS: BP 142/94; TEMP 98.7; O2SAT 98
[2021-05-08] MEDS ORDERED: *HR* Heparin 5,000 UNIT/ML VIAL SQ SCH (06:00)
[2021-05-08] MEDS ORDERED: Aspirin Enteric Coated 81 MG Tablet PO SCH (21:00)
[2021-05-08] MEDS ORDERED: Melatonin 3 MG TABLET PO SCH (21:00)
== END 2021-05-08 04:48 | disposition left against medical advice (07) ==
LOC: EMEROOARM 16:14 → 3ANU 16:14
PROVIDERS: ADMIT Internal Medicine; ATTEND Internal Medicine

== ENCOUNTER 2021-05-10 05:00 | Observation (INO) ==
[2021-05-10 05:59] LABS: Basophils % 0.2 %; Eosinophils # 0.3 K/mcL (0.0-0.6); Eosinophils % 2.4 %; Hematocrit 45.2 % (35.3-44.9); Hemoglobin 14.7 g/dL (11.5-15.4); Immature Granulocytes % 0.4 % (0-4); Lymphocytes # 2.9 K/mcL (0.6-4.6); Lymphocytes % 22.5 %; Mean Corpuscular HGB Conc 32.5 g/dL (31.6-35.5); Mean Corpuscular Hemoglobin 27.9 pg (28.0-33.3); Mean Corpuscular Volume 85.9 fL (83.0-100.0); Mean Platelet Volume 11.1 fL (9.4-12.4); Monocytes # 0.8 K/mcL (0.0-1.3); Monocytes % 5.9 %; Platelet Count 216 K/mcL (140-400); Red Blood Count 5.26 M/mcL (3.82-4.97); Red Cell Distribution Width 13.2 % (11.5-14.5); Segmented Neutrophils % 68.6 %
[2021-05-10 06:12] LABS: Carbon Dioxide 22 mEq/L (23-29); Chloride 106 mEq/L (98-107); Glucose 97 mg/dL (70-105); Potassium 3.5 mEq/L (3.5-5.1); Sodium 137 mEq/L (136-145); eGFR For African Americans > 60 (> 60); eGFR For Non-African Americans > 60 (> 60)
[2021-05-10 06:19] LABS: Troponin I < 0.03 ng/mL (< 0.04)
[2021-05-10 06:31] LABS: BUN/Creatinine Ratio 15 (6-26); Blood Urea Nitrogen 11 mg/dL (6-20); Calcium 9.3 mg/dL (8.6-10.3); Osmolality,Calculated 283 (280-300)
[2021-05-10] MEDS ORDERED: Aspirin 81 MG TAB.CHEW PO ONE (08:07)
[2021-05-10] MEDS ORDERED: Naloxone 0.4 MG/ML INJ IVP PRN (09:12)
[2021-05-10 10:43] LABS: Chol/HDL Ratio 5.7 (0-4.9); Cholesterol 217 mg/dL (< 200); HDL Cholesterol 38 mg/dL (40-59); LDL Cholesterol,Calculated 148 mg/dL (< 100); Triglycerides 153 mg/dL (< 150)
[2021-05-10 11:48] LABS: Estimated Average Glucose 111 mg/dl; Hemoglobin A1C 5.5 %
[2021-05-10] MEDS ORDERED: Regadenoson 0.4 MG/5 ML SYRINGE IVP ONE (11:51)
[2021-05-10] MEDS ORDERED: Perflutren Lipid Microsphere 1.3 ML in 0.9 % Sodium Chloride 8.7 ML IVP PRN (14:51)
[2021-05-10] MEDS ORDERED: Morphine Sulfate 2 MG/ML SYRINGE IVP ONE (20:28)
[2021-05-11 05:03] LABS: Basophils % 0.3 %; Eosinophils # 0.4 K/mcL (0.0-0.6); Eosinophils % 2.9 %; Hematocrit 42.4 % (35.3-44.9); Hemoglobin 14.1 g/dL (11.5-15.4); Immature Granulocytes % 0.3 % (0-4); Lymphocytes # 3.4 K/mcL (0.6-4.6); Mean Corpuscular HGB Conc 33.3 g/dL (31.6-35.5); Mean Corpuscular Hemoglobin 28.8 pg (28.0-33.3); Mean Corpuscular Volume 86.7 fL (83.0-100.0); Mean Platelet Volume 10.8 fL (9.4-12.4); Monocytes # 0.7 K/mcL (0.0-1.3); Monocytes % 5.3 %; Neutrophils # 8.1 K/mcL (1.6-8.9); Platelet Count 195 K/mcL (140-400); Red Blood Count 4.89 M/mcL (3.82-4.97); Red Cell Distribution Width 13.2 % (11.5-14.5); Segmented Neutrophils % 64.2 %; White Blood Count 12.6 K/mcL (4.3-11.1)
[2021-05-11 05:19] LABS: BUN/Creatinine Ratio 14 (6-26); Blood Urea Nitrogen 9 mg/dL (6-20); Calcium 8.8 mg/dL (8.6-10.3); Carbon Dioxide 21 mEq/L (23-29); Chloride 106 mEq/L (98-107); Glucose 94 mg/dL (70-105); Osmolality,Calculated 278 (280-300); Potassium 3.7 mEq/L (3.5-5.1); Sodium 135 mEq/L (136-145); eGFR For African Americans > 60 (> 60); eGFR For Non-African Americans > 60 (> 60)
[2021-05-11 07:15] VITALS: BP 104/68; PULSE 65; TEMP 98.4; O2SAT 95
[2021-05-11] MEDS ORDERED: Aspirin Enteric Coated 81 MG Tablet PO SCH (09:00)
== END 2021-05-11 10:46 | disposition home or self-care (01) ==
LOC: 3NENU 05:00 → EMEROOARM 05:00 → 3NENU 13:45
PROVIDERS: ADMIT Internal Medicine; ATTEND Internal Medicine